=== PATIENT | male | born 1980 | race Caucasian/White ===

== ENCOUNTER 2017-10-16 10:55 | Emergency (ER) | payer SELFPAY ==
[~2017-10-16] VITALS: Ht 172.7 cm; Wt 88.0 kg
[~2017-10-16 10:55] MED LIST: ALBUAER19 INH; FLUT0.15 NAE
[2017-10-16 10:57] VITALS: TEMP 36.5
[2017-10-16] MEDS ORDERED: ONDANSETRON INJ 2 MG/ML 2 ML VIAL IV STA (11:16)
[2017-10-16] MEDS ORDERED: MECLIZINE HCL 25 MG TAB PO STA (11:16)
[2017-10-16] MEDS ORDERED: LORAZEPAM 2 MG/ML 1 ML VIAL IV STA (11:16)
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
[2017-10-16 11:45] VITALS: O2SAT 95
[2017-10-16 12:27] LABS: BASO % 0.2 %; BASO ABS # 0.02 K/uL (0-0.2); EOS % 0.5 %; EOS ABS # 0.05 K/uL (0-0.5); HEMATOCRIT 49.7 % (42-52); HEMOGLOBIN 17.2 g/dL (14.0-18.0); IG# 0.03 K/uL (0.00-0.02); LYMPH % 13.7 %; LYMPH ABS # 1.36 K/uL (1.2-3.4); MEAN CELL VOLUME 91.9 fL (80-100); MEAN CORPUSCULAR HEMOGLOBIN 31.8 pg (25-34); MEAN CORPUSCULAR HGB CONC 34.6 g/dl (32-36); MONO % 4.3 %; MONO ABS # 0.43 K/uL (0.11-0.59); NEUT ABS # 8.04 K/uL (1.4-6.5); PLATELET COUNT 267 K/uL (130-400); RED CELL DISTRIBUTION WIDTH CV 13.8 % (11.5-14.5); RED CELL DISTRIBUTION WIDTH SD 46.2 fL (36.4-46.3); WHITE BLOOD COUNT 9.93 K/uL (4.8-10.8)
[2017-10-16 12:49] LABS: ALBUMIN 3.3 gm/dl (3.4-5.0); ALT/SGPT 22 U/L (12-78); AST/SGOT 9 U/L (15-37); BLOOD UREA NITROGEN 11 mg/dl (7-18); CALCIUM 8.7 mg/dl (8.5-10.1); CARBON DIOXIDE 29 mmol/L (21-32); CREATININE 0.86 mg/dl (0.60-1.40); GLUCOSE 123 mg/dl (70-99); POTASSIUM 3.4 mmol/L (3.5-5.1); SODIUM 137 mmol/L (136-145)
--- NOTE | 2017-10-16 12:51 | DIAGNOSTIC IMAGING REPORT ---
HEAD WITHOUT CONTRAST (CT) CLINICAL HISTORY: 37 years-old Male with Pt c/o dizziness. Acute dizziness with altered mental status TECHNIQUE: Multiple axial CT images of the head were obtained without contrast. A dose lowering technique was utilized adhering to the principles of ALARA. CT DOSE: 614.27 mGy.cm COMPARISON: None. FINDINGS: No acute intracranial hemorrhage, midline shift, intracranial mass, hydrocephalus, territorial ischemia or abnormal extra-axial collection. There is increased attenuation of the cerebral vasculature and cerebral venous sinuses. There is fusiform dilation of the basilar artery measuring up to 10 mm transversely as noted on image 10 series 2. Atherosclerosis of the C4 segment left vertebral artery. Atherosclerosis is also seen within the left carotid terminus. The calvarium is intact. Moderate mucosal thickening of the ethmoid air cells. Mastoid air cells and middle ear cavities are clear. IMPRESSION: 1. No acute intracranial abnormality identified. 2. Increased attenuation of the cerebral vasculature and cerebral venous sinuses suggest recent contrast-enhanced study. 3. Fusiform dilation of the basilar artery measuring up to 10 mm transversely suggests aneurysmal dilation. This appears greater than expected for basilar artery dolichoectasia. The above report was generated using voice recognition software. It may contain grammatical, syntax or spelling errors. Electronically signed by: Jani Braden M.D. 10/16/2017 12:50 PM Dictated Date/Time: 10/16/2017 12:25 PM
[2017-10-16 13:00] LABS: ALKALINE PHOSPHATASE 69 U/L (45-117); TOTAL PROTEIN 7.2 gm/dl (6.4-8.2)
[2017-10-16] MEDS ORDERED: POTASSIUM CHLORIDE 20 MEQ/15 ML UDC PO STA (13:04)
[2017-10-16] MEDS ORDERED: MECL1TAB42 PO (13:11)
[2017-10-16] MEDS ORDERED: OPTIRAY 320 IV PRN (14:15)
--- NOTE | 2017-10-16 14:41 | DIAGNOSTIC IMAGING REPORT ---
CT NECK ANGIO WITH CONTRAST CLINICAL HISTORY: SEVERE DIZZINESS COMPARISON STUDY: Noncontrast head CT dated 10/16/2017 TECHNIQUE: CT angiography was performed from the aortic arch to the skull base. MIP imaging was performed. The patient was scanned in a dynamic helical fashion during intravenous administration of 120 cc of Optiray 320. A dose lowering technique was utilized adhering to the principles of ALARA. CT DOSE: 510.52 mGy.cm Technique: CT angiogram of the carotid and vertebral arteries was obtained using intravenous contrast and 3-D reconstruction. NASCET criteria was utilized. Findings: The right carotid revealed no evidence of aneurysm and no evidence of dissection. There is no evidence of hemodynamic significant stenosis. The left carotid revealed no evidence of hemodynamic significant stenosis. There is no evidence of aneurysm. There is no evidence of dissection. There is no evidence of hemodynamically significant vertebral stenosis. There is no evidence of vertebral dissection. The basilar artery is ectatic, and there is semilunar thrombus within the right half of the vessel narrowing the lumen by approximately 50%. Diagnostic considerations include a basilar dissection, or acute thrombus into a pre-existing plaque. IMPRESSION: 1. No evidence of carotid or vertebral artery stenosis 2. Extensive semilunar thrombus within an ectatic basilar artery. This narrows the lumen by approximately 50%. Diagnostic considerations include a basilar dissection, or acute thrombus into a pre-existing plaque. Electronically signed by: Gordo Hodges M.D. 10/16/2017 2:39 PM Dictated Date/Time: 10/16/2017 2:24 PM
[2017-10-16] MEDS ORDERED: SODIUM CHLORIDE 0.9% 1000ML 1,000 ML IV SCH (14:48)
--- NOTE | 2017-10-16 14:48 | DIAGNOSTIC IMAGING REPORT ---
CTA ANGIOGRAPHY OF THE HEAD CLINICAL HISTORY: Severe dizziness. Altered mental status. COMPARISON STUDY: Head CT performed earlier today. TECHNIQUE: Helical axial images of the head were obtained following uneventful intravenous administration of 120 cc of Optiray 320. A dose lowering technique was utilized adhering to the principles of ALARA. 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 The basilar artery measures 1.1 cm in transverse dimension. In addition, there is extensive eccentric intraluminal thrombus along the right aspect of the basilar artery which results in 50% narrowing of this vessel. An underlying dissection cannot be excluded but a definite intimal flap is not identified. There is moderate plaque within the left supraclinoid ICA. The anterior circulation is intact. An anterior communicating artery is noted. The bilateral posterior arteries are intact. Sensitivity for detection of acute hemorrhage is diminished on this exam but none is identified. Brain volume is normal. Ventricular system is normal. Apparent hypodensity within the right cerebellar hemisphere is noted. This may be artifactual. There is moderate mucosal thickening of the ethmoid and frontal sinuses. Mastoid air cells are clear. No definite abrupt vessel cut off is identified. IMPRESSION: 1. 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 Extensive eccentric intraluminal thrombus along the right aspect of the basilar artery which results in 50% narrowing of this vessel. This places the patient at risk for embolic stroke. Underlying dissection cannot be excluded. Findings discussed with Dr. Nails at time of dictation. 2. Hypodensity within the right cerebellar hemisphere. This is probably artifactual although acute infarct could have this appearance. An MRI of the brain without contrast could be obtained. Electronically signed by: Saurav Gaona M.D. 10/16/2017 2:47 PM Dictated Date/Time: 10/16/2017 2:26 PM
[2017-10-16 15:08] VITALS: Ht 172.7 cm; Wt 88.0 kg
[2017-10-16] MEDS ORDERED: SODIUM CHLORIDE 0.9% 1000ML 1,000 ML IV STA (15:28)
[2017-10-16 15:36] LABS: PTT PATIENT 25.4 SECONDS (21.0-31.0)
[2017-10-16 15:46] LABS: CKMB 0.9 ng/ml (0.5-3.6)
[2017-10-16 16:43] VITALS: BP 145/87; PULSE 69; O2SAT 95
== END 2017-10-16 16:44 | disposition short-term general hospital (02) ==
LOC: C.EDB 10:56 → C.EDC 16:44
DX: R41.82 Altered mental status, unspecified (principal); R42 Dizziness and giddiness; J45.909 Unspecified asthma, uncomplicated; F17.200 Nicotine dependence, unspecified, uncomplicated; Z87.81 Personal history of (healed) traumatic fracture; Z88.0 Allergy status to penicillin; Z88.5 Allergy status to narcotic agent

== ENCOUNTER 2022-08-25 14:10 | Inpatient (IN) ==
[2022-08-25 15:37] LABS: Partial Thromboplastin Ratio 1.1; Partial Thromboplastin Time 31.2 Seconds (21.0-31.0); Prothrombin Time 10.4 Seconds (9.0-12.0)
--- NOTE | 2022-08-25 15:37 | Emergency Department Note ---
Impression & Plan CVA (cerebral vascular accident), Basilar artery aneurysm, Tobacco use, Stroke- like symptoms ED Provider Note NAME: SUNSHINE CHERRY AGE: 42 SEX: M : 1980 ARRIVES VIA: Walk-In INFORMANT: Patient, ED PROVIDER(S): Rakesh Thompson MD Chief Complaint: Slurred speech, ambulatory dysfunction HPI: Patient presents due to concern for slurred speech and difficulty with ambulation beginning yesterday. This is noted similar to a prior stroke so he is brought in today. No reported falls. Patient has no fevers chills nausea vomiting or difficulty with swallowing. No bowel or bladder incontinence. Patient does smoke half pack of cigarettes daily. No alcohol use. No evidence of any weakness in the bilateral upper or lower extremities. No reported falls or trauma. Patient did have a brain MRI completed in 2019 which showed no evidence of ischemia. Remote right cerebellar infarct. 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 Patient is on aspirin and Plavix. The patient developed symptoms beginning yesterday. ROS: See HPI for pertinent positives and negatives. A total of 10 systems were reviewed and otherwise negative. Past medical history: See below Surgical history: See below Social history: See below Physical Exam: GENERAL: NAD, wearing a mask, non-toxic. EYE EXAM: Normal conjunctiva. PERRL, no anisocoria and EOM's grossly intact w/o pain. NECK: Supple, no nuchal rigidity, no adenopathy, non-tender. No signs of meningismus. FROM of the neck with good chin to chest and neck extension. No stridor. LUNGS: Clear to auscultation. Normal chest wall mechanics. HEART: NSR, no MRG. ABDOMEN: Abdomen soft, non-tender, normo-active bowel sounds, no masses, no rebound or guarding. BACK: No CVA TTP. SKIN: No rashes and no bruising. UPPER EXTREMITIES: Upper extremities are grossly normal. LOWER EXTREMITIES: Grossly normal, no edema. NEURO EXAM: A&O x3, cranial nerves II-XII grossly intact, dysarthria noted, moves all 4 extremities. Mild difficulty with [id number] bilaterally. Good [id number]. Differential diagnoses: Infection, dehydration, metabolic abnormality, hypo/hyperglycemia, electrolyte disturbance, anemia, hypoxia, cardiac sources, intracerebral event, toxicologic, neurologic, as well as other pathologies. Course: Patient was seen and evaluated the bedside. Full history physical exam was performed. EKG interpreted by me Normal sinus rhythm, rate 96 normal intervals left axis deviation no ST elevations. Imaging Studies: See Below Cardiac monitoring: An order was placed for continuous cardiac monitoring. The monitor shows a rate of 92 with sinus rhythm. MDM: Patient's initial CT of the head shows no acute intracranial abnormality. Chronic right cerebellar infarct. The patient does have dolichoectasia with fusiform aneurysmal dilatation the patient artery redemonstrated but increase in size since November 25, 2018. No evidence of rupture. Per the report patient does have a calcified basilar artery at the level of the dotty measuring 2.3 x 1.9 previously measured 1.5 x 1.5. The distal basilar artery just proximal to the bifurcation measures up to 9 mm transverse previously was 6 mm. I did speak to the transfer center to [facility] neurosurgery Dr. Sánchez. After discussing the patient's CTs he does not advocates any intervention at this time. He does was agree with an MRI to further evaluate for stroke. MRI brain was ordered. I did speak with on-call neurologist Dr. Snow who stated that patient does not require aspirin and Plavix below but may resume aspirin 81 Plavix 75 and to begin atorvastatin 40. I did speak with the on-call hospitalist and a ROSSI Cortez and the patient was admitted by Dr. Holland. Patient presents to the patient was noted to have subcentimeter acute to subac tim appearing infarct of the left cerebral peduncle. Past Med/Surg History Medical History Basilar artery aneurysm CAD (coronary artery disease) COPD (chronic obstructive pulmonary disease) CVA (cerebral vascular accident) Dyslipidemia HTN (hypertension) Tobacco use Surgical History History of arthroscopy of shoulder History of umbilical hernia repair Family History Father Coronary heart disease [place] age 50's Hypertension Grandfather (Paternal) Coronary heart disease Social History Smoking Status: Former smoker Cigarettes Per Day: 2-3ppd x 30 years; Hx Alcohol Use: No Hx Substance Use: No Preferred Language: Yi Communication Ability: Effective Crocheter Required: No Beliefs That Will Affect Care: None marital status: Single Current Living Situation: Other Current Living Situation Comment: pt lives with someone, not [facility] business current occupational status: employed Feels Safe at Home: Yes Safety Concerns: Feels Safe At This Time Allergies Allergies Allergy/AdvReac Type Severity Reaction Status Date / Time Penicillins Allergy Mild UNKNOWN Verified 08/25/22 16:45 oxycodone AdvReac Mild GI DISTRESS Verified 08/25/22 16:45 Home Meds Home Medications Medication Instructions Recorded Confirmed acetaminophen 500 mg tablet 500 - 1,000 mg PO BID PRN Pain 11/25/18 08/25/22 (Tylenol Extra Strength) aspirin 81 mg tablet,delayed 81 mg PO DAILY 11/25/18 08/25/22 release (Connie Low Dose Aspirin) amlodipine 10 mg tablet 10 mg PO DAILY 08/25/22 08/25/22 furosemide 20 mg tablet 20 mg PO DAILY PRN Edema 08/25/22 08/25/22 metoprolol tartrate 100 mg tablet 100 mg PO BID 08/25/22 08/25/22 Results & Data (ED) Vital Signs Vital Signs - 24 hr 08/25/22 14:30 08/25/22 15:34 08/25/22 16:17 Temperature 37.1 C Temperature Source Temporal Artery Scan Pulse Rate 97 H Pulse Rate [Apical] 89 92 H Pulse Rhythm [Apical] Regular Pulse Strength [Apical] Normal Respiratory Rate 16 18 20 Respiratory Effort / Characteristics Non-Labored Spontaneous Non-Labored Spontaneous Respiratory Depth Normal Normal Respiratory Pattern Regular Blood Pressure 158/102 H Blood Pressure [Left Arm] 150/93 H Blood Pressure [Right Arm] 152/99 H Blood Pressure Mean 120 Blood Pressure Mean [Left Arm] 112 Blood Pressure Mean [Right Arm] 116 Blood Pressure Position [Left Arm] Semi-fowlers Blood Pressure Position [Right Arm] Semi-fowlers Pulse Oximetry 93 92 93 Oxygen Delivery Method Room Air Room Air Room Air Sepsis Recent Fever Within 48 Hours No Sepsis New/Unexplained Change in Mental Status N/A Sepsis Action Taken by Nursing No Action Required Home Medications Current Medication List: was personally reviewed by me Laboratory Data Attestation: I reviewed the patient's lab results. Result diagrams: 08/25/22 14:35 08/25/22 15:51 Lab Results 08/25/22 08/25/22 08/25/22 Range/Units 14:35 14:35 15:49 WBC 10.93 H (4.8-10.8) K/ul RBC 5.77 (4.63-6.08) M/uL Hgb 18.5 H (14.0-18.0) g/dl POC Hgb (14.0-18.0) g/dl Hct 53.1 H (40.1-51.0) % POC Hct (42-52) % MCV 92.0 (80.0-100.0) fL MCH 32.1 (25.0-34.0) pg MCHC 34.8 (32.0-36.0) g/dL RDW Std Deviation 48.3 H (36.4-46.3) fL RDW Coeff of Krupa 14.4 (11.5-14.5) % Plt Count 312 (130-400) K/uL MPV 9.6 (9.4-12.4) fL PT 10.4 (9.0-12.0) Seconds INR 1.0 (0.9-1.1) APTT 31.2 H (21.0-31.0) Seconds PTT Ratio 1.1 POC Sodium (135-144) mmol/L Sodium (136-145) mmol/L POC Potassium (3.3-5.0) mmol/L Potassium (3.5-5.1) mmol/L POC Chloride (101-112) mmol/L Chloride (98-107) mmol/L Carbon Dioxide (21-32) mmol/L POC Total CO2 (24-31) mmol/L Anion Gap (3-11) POC Anion Gap (16-25) mmol/L POC BUN (7-18) mg/dl BUN (6-23) mg/dl Creatinine (0.6-1.4) mg/dl POC Creatinine (0.6-1.3) mg/dl Est Cr Clr Drug Dosing ml/min Est GFR ( Amer) ml/min Est GFR (Non-Af Amer) ml/min BUN/Creatinine Ratio (10-20) Glucose (70-99(Fasting)) mg/dl POC Glucose (other) (70-99) mg/dl Calcium (8.5-10.1) mg/dl POC Ioniz Calcium Samm (1.12-1.32) mmol/l Magnesium (1.7-2.4) mg/dl Total Bilirubin (0.2-1.0) mg/dl AST (13-39) U/L ALT (7-52) U/L Alkaline Phosphatase (34-104) U/L Troponin I High Sens (0-20) pg/ml Total Protein (6.0-8.3) gm/dl Albumin (3.4-5.0) gm/dl Globulin (2.5-4.0) gm/dl Albumin/Globulin Ratio (0.9-2) Triglycerides (0-150) mg/dl Cholesterol (0-200) mg/dl LDL Cholesterol, Calc VLDL Cholesterol, Calc HDL Cholesterol mg/dl Cholesterol/HDL Ratio (0-5) SARS-CoV-2, RNA, NAAT NEGATIVE (NEGATIVE) 08/25/22 08/25/22 Range/Units 15:51 15:57 WBC (4.8-10.8) K/ul RBC (4.63-6.08) M/uL Hgb (14.0-18.0) g/dl POC Hgb 19.7 H (14.0-18.0) g/dl Hct (40.1-51.0) % POC Hct 58 H (42-52) % MCV (80.0-100.0) fL MCH (25.0-34.0) pg MCHC (32.0-36.0) g/dL RDW Std Deviation (36.4-46.3) fL RDW Coeff of Krupa (11.5-14.5) % Plt Count (130-400) K/uL MPV (9.4-12.4) fL PT (9.0-12.0) Seconds INR (0.9-1.1) APTT (21.0-31.0) Seconds PTT Ratio POC Sodium 138 (135-144) mmol/L Sodium 136 (136-145) mmol/L POC Potassium 4.0 (3.3-5.0) mmol/L Potassium 4.0 (3.5-5.1) mmol/L POC Chloride 98 L (101-112) mmol/L Chloride 99 (98-107) mmol/L Carbon Dioxide 29 (21-32) mmol/L POC Total CO2 28 (24-31) mmol/L Anion Gap 8 (3-11) POC Anion Gap 16.0 (16-25) mmol/L POC BUN 13 (7-18) mg/dl BUN 12 (6-23) mg/dl Creatinine 0.84 (0.6-1.4) mg/dl POC Creatinine 0.8 (0.6-1.3) mg/dl Est Cr Clr Drug Dosing 138.3 ml/min Est GFR ( Amer) 123.4 ml/min Est GFR (Non-Af Amer) 106.5 ml/min BUN/Creatinine Ratio 14.3 (10-20) Glucose 103 H (70-99(Fasting)) mg/dl POC Glucose (other) 109 H (70-99) mg/dl Calcium 9.6 (8.5-10.1) mg/dl POC Ioniz Calcium Samm 1.17 (1.12-1.32) mmol/l Magnesium 1.9 (1.7-2.4) mg/dl Total Bilirubin 0.4 (0.2-1.0) mg/dl AST 18 (13-39) U/L ALT 29 (7-52) U/L Alkaline Phosphatase 67 (34-104) U/L Troponin I High Sens 6.6 (0-20) pg/ml Total Protein 7.9 (6.0-8.3) gm/dl Albumin 4.1 (3.4-5.0) gm/dl Globulin 3.8 (2.5-4.0) gm/dl Albumin/Globulin Ratio 1.1 (0.9-2) Triglycerides 439 H (0-150) mg/dl Cholesterol 251 H (0-200) mg/dl LDL Cholesterol, Calc TNP VLDL Cholesterol, Calc TNP HDL Cholesterol 38 mg/dl Cholesterol/HDL Ratio 6.6 H (0-5) SARS-CoV-2, RNA, NAAT (NEGATIVE) Administered Medications Metoprolol Tartrate (Metoprolol Tartrate 100 Mg Tab) 100 mg PO BID KHUSHBU Stop: 09/24/22 20:59 Last Admin: 08/25/22 21:01 Dose: 100 mg Documented By: CR Discontinued Medications Aspirin (Aspirin Chew 324 Mg) 81 mg PO NOW STA Stop: 08/25/22 17:17 Last Admin: 08/25/22 17:27 Dose: 81 mg Documented By: SLB Clopidogrel Bisulfate (Clopidogrel Bisulfate 75 Mg Tab) 75 mg PO NOW ONE Stop: 08/25/22 17:17 Last Admin: 08/25/22 17:25 Dose: 75 mg Documented By: FELICIA Ioversol (Optiray 320 500ml) 121 ml IV ONCE ONE Stop: 08/25/22 16:09 Last Admin: 08/25/22 16:09 Dose: 121 ml Documented By: CINTHIA Imaging Data Radiologist's Impression: Chest X-Ray 08/25/22 14:35 XR chest 1V portable CLINICAL HISTORY: stroke alert TECHNIQUE: Single frontal radiograph of the chest was obtained. Comparison: Comparison is made to chest radiograph 11/25/2018 FINDINGS: No lines and tubes are seen. Cardiomegaly is noted. Prominence and cephalization of the vasculature is seen. No evidence of pleural effusion or pneumothorax. IMPRESSION: Cardiomegaly and mild pulmonary edema. ACT 112: Negative or not required by law. Electronically signed by: Ad Delgado M.D. 08/25/2022 3:[address] 08/25/22 14:35 CT head/brain wo con CLINICAL HISTORY: 42 years-old Male with Stroke Alert. Acute dizziness with strokelike symptoms TECHNIQUE: Multiple axial CT images of the head were obtained without contrast. A dose lowering technique was utilized adhering to the principles of ALARA. CT DOSE: 1311.06 mGy.cm COMPARISON: MRA of the head 11/25/2018, brain MRI 11/25/2018. FINDINGS: No acute intracranial hemorrhage, midline shift, intracranial mass, hydrocephalus, territorial ischemia or abnormal extra-axial collection. Dolichoectasia with aneurysmal dilation of the basilar artery is redemonstrated. The peripherally calcified basilar artery at the level of the dotty measures 2.3 x 1.9 cm, previously 1.5 x 1.5 cm when measured in a similar fashion. This causes moderate mass effect upon the ventral aspect of the pontine brainstem. The distal basilar artery just proximal to the bifurcation measures up to 9 mm transversely, previously 6 mm. No evidence of aneurysm rupture. Chronic intramural thrombus versus atheromatous plaque is again noted within the basilar artery. Additional cerebral vascular calcifications of the carotid and middle cerebral arteries. Chronic right cerebellar infarct. The calvarium is intact. The paranasal sinuses, mastoid air cells, and middle ear cavities are clear. IMPRESSION: 1. No acute intracranial abnormality. 2. Chronic right cerebellar infarct. 3. 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 There is no evidence of aneurysm rupture on today's study. ACT 112: Negative or not required by law. The above report was generated using voice recognition software. It may contain grammatical, syntax or spelling errors. Electronically signed by: Arthur Braden M.D. 08/25/2022 3:39 PM Head CTA 08/25/22 15:36 CT angio neck with con, CT angio head w con CLINICAL HISTORY: 42 years-old Male with slurred speech, h/o R cereb CVA and bas aneurysm. Acute strokelike symptoms COMPARISON STUDY: Head CT of same day, brain MRI and MRA brain 11/25/2018, CTA neck 10/16/2017 TECHNIQUE: Following the IV administration of 121 of Optiray, CT angiogram of the head and neck was performed from the aortic arch to the skull apex. Images are reviewed in the axial, sagittal, and coronal planes. 3-D MIPS images are created and assessed. IV contrast was administered without complication. All measurements were calculated based on NASCET criteria. A dose lowering te chnique was utilized adhering to the principles of ALARA. CT DOSE: 644.48 mGy.cm FINDINGS: Four-vessel morphology of the thoracic aortic arch. Patency of the innominate and imaged subclavian arteries. The common and internal carotid arteries are widely patent. There is mild atherosclerotic plaque of the left carotid bulb and proximal left ICA resulting in less than 50% stenosis. Fusiform dilation of the left carotid terminus measures up to 7 mm, previously measured at 6 mm. The anterior and middle cerebral arteries are widely patent. Mild atherosclerotic plaque without central stenosis of the bilateral vertebral arteries. Dolich oectasia with aneurysmal dilation of the basilar artery is redemonstrated. The peripherally calcified basilar artery at the level of the dotty measures 2.2 x 1.9 cm, previously 1.5 x 1.5 cm when measured in a similar fashion. This causes moderate mass effect upon the ventral aspect of the pontine brainstem. The distal basilar artery just proximal to the bifurcation measures up to 9 mm transversely, previously 6 mm. No evidence of aneurysm rupture. Chronic intramural thrombus/atheromatous plaque is again noted within the basilar artery. Chronic right cerebellar infarct. No abnormal intracranial enhancement. Lung apices are clear. No pneumothorax. Nonspecific cervical chain lymphadenopathy measures up to 1.5 cm on the left. No acute fracture. Degenerative changes of the cervical spine with mild kyphotic curvature. IMPRESSION: 1. 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 There is no evidence of aneurysm rupture on today's study. 2. Mild atherosclerosis without dissection, high-grade stenosis or arterial occlusion identified. 3. Mild nonspecific cervical chain lymphadenopathy. ACT 112: Negative or not required by law. The above report was generated using voice recognition software. It may contain grammatical, syntax or spelling errors. Electronically signed by: Arthur Braden M.D. 08/25/2022 4:31 PM Neck CTA 08/25/22 15:36 CT angio neck with con, CT angio head w con CLINICAL HISTORY: 42 years-old Male with slurred speech, h/o R cereb CVA and bas aneurysm. Acute strokelike symptoms COMPARISON STUDY: Head CT of same day, brain MRI and MRA brain 11/25/2018, CTA neck 10/16/2017 TECHNIQUE: Following the IV administration of 121 of Optiray, CT angiogram of the head and neck was performed from the aortic arch to the skull apex. Images are reviewed in the axial, sagittal, and coronal planes. 3-D MIPS images are created and assessed. IV contrast was administered without complication. All measurements were calculated based on NASCET criteria. A dose lowering technique was utilized adhering to the principles of ALARA. CT DOSE: 644.48 mGy.cm FINDINGS: Four-vessel morphology of the thoracic aortic arch. Patency of the innominate and imaged subclavian arteries. The common and internal carotid arteries are widely patent. There is mild atherosclerotic plaque of the left carotid bulb and proximal left ICA resulting in less than 50% stenosis. Fusiform dilation of the left carotid terminus measures up to 7 mm, previously measured at 6 mm. The anterior and middle cerebral arteries are widely patent. Mild atherosclerotic plaque without central stenosis of the bilateral vertebral arteries. Dolichoectasia with aneurysmal dilation of the basilar artery is redemonstrated. The peripherally calcified basilar artery at the level of the dotty measures 2.2 x 1.9 cm, previously 1.5 x 1.5 cm when measured in a similar fashion. This causes moderate mass effect upon the ventral aspect of the pontine brainstem. The distal basilar artery just proximal to the bifurcation measures up to 9 mm transversely, previously 6 mm. No evidence of aneurysm rupture. Chronic intramural thrombus/atheromatous plaque is again noted within the basilar artery. Chronic right cerebellar infarct. No abnormal intracranial enhancement. Lung apices are clear. No pneumothorax. Nonspecific cervical chain lymphadenopathy measures up to 1.5 cm on the left. No acute fracture. Deg enerative changes of the cervical spine with mild kyphotic curvature. IMPRESSION: 1. Dolichoectasia with fusiform aneurysmal dilation of the basilar artery has in creased in size from 11/25/2018. There is no evidence of aneurysm rupture on today's study. 2. Mild atherosclerosis without dissection, high-grade stenosis or arterial occlusion identified. 3. Mild nonspecific cervical chain lymphadenopathy. ACT 112: Negative or not required by law. The above report was generated using voice recognition software. It may contain grammatical, syntax or spelling errors. Electronically signed by: Arthur Braden M.D. 08/25/2022 4:31 PM Brain MRI 08/25/22 17:07 MR brain wo con HISTORY: 42 years-old Male stroke symptoms acute strokelike symptoms COMPARISON: CTA had and neck of same day, brain MRI 11/25/2018 TECHNIQUE: Multiplanar multisequence MRI the brain was obtained without the use of IV contrast FINDINGS: Chronic right cerebellar infarct. Dolichoectasia with aneurysmal dilation of the basilar artery redemonstrated with associated chronic intramural thrombus/atheromatous plaque. There is increased mass effect upon the cerebral peduncles and dotty compared to the 2019 exam. The midline structures appear unremarkable otherwise. Study is mildly motion degraded. No evidence of acute or subacute territorial infarct. There is an 8 mm area of restricted diffusion with decreased signal on the ADC map involving the left cerebral peduncle, image 9 of the axial series. No acute intracranial hemorrhage, midline shift, abnormal extra-axial collection, hydrocephalus or intracranial mass. Cerebral venous sinuses and major arterial flow voids are otherwise unremarkable. Skull, orbits and soft tissues are unremarkable. Mastoid air cells and paranasal sinuses are clear. IMPRESSION: 1. Subcentimeter acute to subacute appearing infarct of the left cerebral peduncle. 2. Dolichoectasia with fusiform aneurysmal dilation of the basilar artery redemonstrated, better characterized on the CTA head and neck study of same day. 3. Chronic right cerebellar infarct. ACT 112: Negative or not required by law. The above report was generated using voice recognition software. It may contain grammatical, syntax or spelling errors. Electronically signed by: Arthur Braden M.D. 08/25/2022 6:04 PM Discharge Plan Visit Data Chief Complaint: Leg Weakness, Bilateral Stated Complaint: SLURRED SPEECH, UNSTABLE ON HIS FEET ED Provider: Rakesh Thompson ED Midlevel Provider: Mariia Laureano Discharge Problem: CVA (cerebral vascular accident), Basilar artery aneurysm, Tobacco use, Stroke-like symptoms Patient Disposition: Admitted As Inpatient Discharge Instructions Interventions: ED Discharge Assessment Last Done: 08/25/22 19:51
--- NOTE | 2022-08-25 15:39 | Electrocardiogram Report ---
Test Reason : Blood Pressure : / mmHG Vent. Rate : 096 BPM Atrial Rate : 096 BPM P-R Int : 138 ms QRS Dur : 094 ms QT Int : 348 ms P-R-T Axes : 012 -84 050 degrees QTc Int : 439 ms Normal sinus rhythm Left anterior fascicular block Low voltage QRS Poor R wave progression, consider anterior DE vs. lead placement vs. LVH Abnormal ECG When compared with ECG of 25-NOV-2018 16:46, Left anterior fascicular block now present PRWP now present Confirmed by Vinay Wang ([id number]) on 08/25/2022 3:39:03 PM Referred By: Confirmed By:Vinay Wang
--- NOTE | 2022-08-25 15:40 | CT Scan Report ---
CT head/brain wo con CLINICAL HISTORY: 42 years-old Male with Stroke Alert. Acute dizziness with strokelike symptoms TECHNIQUE: Multiple axial CT images of the head were obtained without contrast. A dose lowering tech nique was utilized adhering to the principles of ALARA. CT DOSE: 1311.06 mGy.cm COMPARISON: MRA of the head 11/25/2018, brain MRI 11/25/2018. FINDINGS: No acute intracranial hemorrhage, midline shift, intracranial mass, hydrocephalus, territorial ischem ia or abnormal extra-axial collection. Dolichoectasia with aneurysmal dilation of the basilar artery is redemonstrated. The peripherally calcified basilar artery at the level of the dotty measures 2.3 x 1.9 cm, previously 1.5 x 1.5 cm when measured in a similar fashion. This causes moderate mass effect upon the ventral aspect of the pontine brainstem. The distal basilar artery just proximal to the bifu rcation measures up to 9 mm transversely, previously 6 mm. No evidence of aneurysm rupture. Chronic i ntramural thrombus versus atheromatous plaque is again noted within the basilar artery. Additional ce rebral vascular calcifications of the carotid and middle cerebral arteries. Chronic right cerebellar infarct. The calvarium is intact. The paranasal sinuses, mastoid air cells, and middle ear cavities are tommy r. IMPRESSION: 1. No acute intracranial abnormality. 2. Chronic right cerebellar infarct. 3. Dolichoectasia with fusiform aneurysmal dilation of the basilar artery is redemonstrated and has i ncreased in size from 11/25/2018. There is no evidence of aneurysm rupture on today's study. ACT 112: Negative or not required by law. The above report was generated using voice recognition software. It may contain grammatical, syntax o r spelling errors. Electronically signed by: Arthur Braden M.D. 08/25/2022 3:39 PM
--- NOTE | 2022-08-25 15:48 | XRay Report ---
XR chest 1V portable CLINICAL HISTORY: stroke alert TECHNIQUE: Single frontal radiograph of the chest was obtained. Comparison: Comparison is made to chest radiograph 11/25/2018 FINDINGS: No lines and tubes are seen. Cardiomegaly is noted. Prominence and cephalization of the vasculature i s seen. No evidence of pleural effusion or pneumothorax. IMPRESSION: Cardiomegaly and mild pulmonary edema. ACT 112: Negative or not required by law. Electronically signed by: Ad Delgado M.D. 08/25/2022 3:46 PM
[2022-08-25 15:51] LABS: Hematocrit (blood only) 53.1 % (40.1-51.0); Hemoglobin 18.5 g/dl (14.0-18.0); Mean Corpuscular Hemoglobin 32.1 pg (25.0-34.0); Mean Corpuscular Hgb Conc 34.8 g/dL (32.0-36.0); Mean Platelet Volume 9.6 fL (9.4-12.4); Platelet Count 312 K/uL (130-400); RDW Coefficient of Variation 14.4 % (11.5-14.5); RDW Standard Deviation 48.3 fL (36.4-46.3); Red Blood Count 5.77 M/uL (4.63-6.08); White Blood Count 10.93 K/ul (4.8-10.8)
[2022-08-25] MEDS ORDERED: OPTIRAY 320 500ml IV ONE (16:08)
[2022-08-25 16:10] LABS: iSTAT Creatinine 0.8 mg/dl (0.6-1.3); iSTAT Hemoglobin 19.7 g/dl (14.0-18.0); iSTAT Ionized Calcium 1.17 mmol/l (1.12-1.32)
[2022-08-25 16:32] LABS: Alanine Aminotransferase 29 U/L (7-52); Albumin Level 4.1 gm/dl (3.4-5.0); Alkaline Phosphatase 67 U/L (34-104); Anion Gap 8 (3-11); Aspartate Aminotransferase 18 U/L (13-39); BUN Creatinine Ratio 14.3 (10-20); Bilirubin,Total 0.4 mg/dl (0.2-1.0); Blood Urea Nitrogen 12 mg/dl (6-23); Calcium 9.6 mg/dl (8.5-10.1); Carbon Dioxide 29 mmol/L (21-32); Chloride 99 mmol/L (98-107); Cholesterol 251 mg/dl (0-200); Creatinine Clr Calc Pharmacy 138.3 ml/min; Est GFR (African American) 123.4 ml/min; Est GFR (Non-African American) 106.5 ml/min; Glucose 103 mg/dl (70-99(Fasting)); HDL Cholesterol 38 mg/dl; Magnesium 1.9 mg/dl (1.7-2.4); Sodium 136 mmol/L (136-145); Total Protein 7.9 gm/dl (6.0-8.3); Triglycerides 439 mg/dl (0-150)
--- NOTE | 2022-08-25 16:33 | CT Scan Report ---
CT angio neck with con, CT angio head w con CLINICAL HISTORY: 42 years-old Male with slurred speech, h/o R cereb CVA and bas aneurysm. Acute s trokelike symptoms COMPARISON STUDY: Head CT of same day, brain MRI and MRA brain 11/25/2018, CTA neck 10/16/2017 TECHNIQUE: Following the IV administration of 121 of Optiray, CT angiogram of the head and neck was p erformed from the aortic arch to the skull apex. Images are reviewed in the axial, sagittal, and daryl nal planes. 3-D MIPS images are created and assessed. IV contrast was administered without complicati on. All measurements were calculated based on NASCET criteria. A dose lowering technique was utilize d adhering to the principles of ALARA. CT DOSE: 644.48 mGy.cm FINDINGS: Four-vessel morphology of the thoracic aortic arch. Patency of the innominate and imaged subclavian a rteries. The common and internal carotid arteries are widely patent. There is mild atherosclerotic pl aque of the left carotid bulb and proximal left ICA resulting in less than 50% stenosis. Fusiform dil ation of the left carotid terminus measures up to 7 mm, previously measured at 6 mm. The anterior and middle cerebral arteries are widely patent. Mild atherosclerotic plaque without central stenosis of the bilateral vertebral arteries. Dolichoectasia with aneurysmal dilation of the basilar artery is re demonstrated. The peripherally calcified basilar artery at the level of the dotty measures 2.2 x 1.9 c m, previously 1.5 x 1.5 cm when measured in a similar fashion. This causes moderate mass effect upon the ventral aspect of the pontine brainstem. The distal basilar artery just proximal to the bifurcati on measures up to 9 mm transversely, previously 6 mm. No evidence of aneurysm rupture. Chronic intram ural thrombus/atheromatous plaque is again noted within the basilar artery. Chronic right cerebellar infarct. No abnormal intracranial enhancement. Lung apices are clear. No pneumothorax. Nonspecific cervical chain lymphadenopathy measures up to 1.5 cm on the left. No acute fracture. Degenerative changes of the cervical spine with mild kyphotic cur vature. IMPRESSION: 1. 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 There is no evidence of aneurysm rupture on today's study. 2. Mild atherosclerosis without dissection, high-grade stenosis or arterial occlusion identified. 3. Mild nonspecific cervical chain lymphadenopathy. ACT 112: Negative or not required by law. The above report was generated using voice recognition software. It may contain grammatical, syntax o r spelling errors. Electronically signed by: Arthur Braden M.D. 08/25/2022 4:31 PM
[2022-08-25 16:35] LABS: Albumin Globulin Ratio 1.1 (0.9-2); Chol HDL Ratio 6.6 (0-5); Globulin 3.8 gm/dl (2.5-4.0)
[2022-08-25] MEDS ORDERED: ASPIRIN CHEW 324 MG PO STA (17:16)
[2022-08-25] MEDS ORDERED: CLOPIDOGREL BISULFATE 75 MG TAB PO ONE (17:16)
--- NOTE | 2022-08-25 17:30 | History & Physical Report ---
Date of Service August 25, 2022 Assessment & Plan (1) CVA (cerebral vascular accident): (2) Basilar artery aneurysm: Plan: Patient is a 42-year-old male with PMH HTN, COPD, tobacco use, CAD, CVA, dolichoectasia of basilar artery aneurysm presented to ER with complaint of slurred speech that started yesterday afternoon. Med non-compliance In ER afebrile, initial BP: 158/102 CT Head: 1. No acute intracranial abnormality. 2. Chronic right cerebellar infarct. 3. 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 There is no evidence of aneurysm rupture on today's study. CTA Head and Neck: 1. 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 There is no evidence of aneurysm rupture on today's study. 2. Mild atherosclerosis without dissection, high-grade stenosis or arterial occlusion identified. 3. Mild nonspecific cervical chain lymphadenopathy. ER physician spoke to Dr Sánchez [facility] neurosurgery who stated no surgical procedure. Also spoke to welder production line arc neurologist - Dr Loving who recommended MRI brain and aspirin 81 and plavix 75mg daily Tele to monitor for arrhythmias MRI brain pending EKG in am Lipid and A1c in am Echo with bubble study Aspiration precautions PT/OT consult Start atorvastatin 40mg daily Patient is to be on aspirin and Plavix however noncompliant. Restart aspirin, Plavix Neurology consult (3) HTN (hypertension): Plan: Noncompliant home medications. Was to be on amlodipine 10mg daily, metoprolol tartrate 100mg BID. Lasix 20mg daily prn LE edema Restart metoprolol tartrate Monitor BP and consider restarting amlodipine if needed (4) Dyslipidemia: Plan: Lipid panel in am Starting atorvastatin 40mg as above (5) CAD (coronary artery disease): Plan: Denies CP, SOB. EKG sinus rhythm, LAFB, poor R wave progression Troponin pending Repeat EKG in am (6) COPD (chronic obstructive pulmonary disease): Plan: Not on inhalers No signs of exacerbation currently Monitor (7) Tobacco use: Plan: 2-3ppd x 30 years Smoking cessation encouraged. Patient states he has no intent of quitting at this time Denies nicotine patch DVT Prophylaxis SCDs Patient's sister Jaja Carlton would look like update. Cell phone number: [phone] DNR/DNI as per discussion with pt and pt's sister Follows with Esteban Underwood PA-C for routine care Pt was seen and care coordinated with Dr Holland. See addendum History of Present Illness Chief Complaint: Speech changes Primary Care Provider: Esteban Tucker Patient is a 42-year-old male with PMH HTN, COPD, tobacco use, CAD, CVA, dolichoectasia of basilar artery aneurysm presented to ER with complaint of slurred speech that started yesterday afternoon. History obtained from patient, patient's family and chart review. He states he took a nap and woke up with slurred speech. Sister also reports that he ambulated to bathroom that he almost fell yesterday. Sister and patient reports slurred speech is about the same as yesterday. Patient admits that he does not take his medications regularly. Last took medications about 2 weeks ago. Sister states he hasn't taken his medications as prescribed for years. Pharmacy review shows that patient last had Plavix filled in 11/2021, metoprolol tartrate in 01/2022 and amlodipine in 03/2022. Denies extremities weakness or paresthesias. Has chronic intermittent YANEZ's. Reports chronic cough. Reports nocturia for "awhile". Smokes 2-3ppd x 30 years. He hasn't smoked since yesterday. Patient has been seen by neurosurgery at [facility] as well as [facility] with previous conversations of no possible surgical intervention. Denies fever/chills, diaphoresis, N/V/D/C, dizziness, syncope, vision changes, neck pain, CP, SOB, orthopnea, palpitations, sore throat, choking, otalgia, rhinorrhea, abdominal pain, extremity edema, rashes, dysuria. Allergies Allergy/AdvReac Type Severity Reaction Status Date / Time Penicillins Allergy Mild UNKNOWN Verified 08/25/22 16:45 oxycodone AdvReac Mild GI DISTRESS Verified 08/25/22 16:45 Home Medications Medication Instructions Recorded Confirmed Type acetaminophen 500 mg tablet 500 - 1,000 mg PO BID PRN Pain 11/25/18 08/25/22 History (Tylenol Extra Strength) aspirin 81 mg tablet,delayed 81 mg PO DAILY 11/25/18 08/25/22 History release (Connie Low Dose Aspirin) amlodipine 10 mg tablet 10 mg PO DAILY 08/25/22 08/25/22 History furosemide 20 mg tablet 20 mg PO DAILY PRN Edema 08/25/22 08/25/22 History metoprolol tartrate 100 mg tablet 100 mg PO BID 08/25/22 08/25/22 History Past Med/Surg History Medical History Basilar artery aneurysm CAD (coronary artery disease) COPD (chronic obstructive pulmonary disease) CVA (cerebral vascular accident) Dyslipidemia HTN (hypertension) Tobacco use Surgical History History of arthroscopy of shoulder History of umbilical hernia repair Family History Father Coronary heart disease [place] age 50's Hypertension Grandfather (Paternal) Coronary heart disease Social History Smoking Status: Former smoker Cigarettes Per Day: 2-3ppd x 30 years; Hx Alcohol Use: No Hx Substance Use: No Preferred Language: Kinyarwanda Communication Ability: Effective Urban Renewal Manager Required: No Beliefs That Will Affect Care: None marital status: Single Current Living Situation: Other Current Living Situation Comment: pt lives with someone, not [facility] business current occupational status: employed Feels Safe at Home: Yes Safety Concerns: Feels Safe At This Time Review of Systems Review of Systems: All systems reviewed & are unremarkable except as noted in HPI & below Physical Exam Physical Exam: General: no distress, +obese Head: normocephalic, atraumatic Eyes: PERRL, EOM's intact, conjunctiva non-injected, anicteric ENT: normal inspection external ears, nose, mucous membranes moist Neck: supple, trachea midline Lungs: clear, no respiratory distress, no wheezing/rhonchi/rales CV: RRR, no murmur, trace pretibial edema Abd: normal BS, soft, non-tender Ext: no cyanosis, no calf tenderness Neuro: A&O x 3, face is strong and symmetric ,hearing grossly intact, soft palate elevates symmetrically, +slurred speech, shoulder shrug intact, tongue is midline, normal movement, no fasciculations Skin: warm, dry Results & Data Results & Data ([facility]) Vital Signs (Past 12 Hours) Vital Signs Temp Pulse Pulse Resp BP BP BP 08/25/22 16:17 92 H 20 152/99 H 08/25/22 15:34 89 18 150/93 H 08/25/22 14:30 37.1 C 97 H 16 158/102 H Pulse Ox O2 Del Method 08/25/22 16:17 93 Room Air 08/25/22 15:34 92 Room Air 08/25/22 14:30 93 Room Air Laboratory Results Short CBC 08/25/22 Range/Units 14:35 WBC 10.93 H (4.8-10.8) K/ul Hgb 18.5 H (14.0-18.0) g/dl Hct 53.1 H (40.1-51.0) % Plt Count 312 (130-400) K/uL BMP 08/25/22 15:51 Sodium 136 Potassium 4.0 Chloride 99 Carbon Dioxide 29 BUN 12 Creatinine 0.84 Glucose 103 H Calcium 9.6 Liver Function 08/25/22 Range/Units 15:51 Total Bilirubin 0.4 (0.2-1.0) mg/dl AST 18 (13-39) U/L ALT 29 (7-52) U/L Alkaline Phosphatase 67 (34-104) U/L Albumin 4.1 (3.4-5.0) gm/dl Diagnostic Findings Chest X-Ray 08/25/22 14:35 XR chest 1V portable CLINICAL HISTORY: stroke alert TECHNIQUE: Single frontal radiograph of the chest was obtained. Comparison: Comparison is made to chest radiograph 11/25/2018 FINDINGS: No lines and tubes are seen. Cardiomegaly is noted. Prominence and cephalization of the vasculature is seen. No evidence of pleural effusion or pneumothorax. IMPRESSION: Cardiomegaly and mild pulmonary edema. ACT 112: Negative or not required by law. Electronically signed by: Ad Delgado M.D. 08/25/2022 3:[address] 08/25/22 14:35 CT head/brain wo con CLINICAL HISTORY: 42 years-old Male with Stroke Alert. Acute dizziness with strokelike symptoms TECHNIQUE: Multiple axial CT images of the head were obtained without contrast. A dose lowering technique was utilized adhering to the principles of ALARA. CT DOSE: 1311.06 mGy.cm COMPARISON: MRA of the head 11/25/2018, brain MRI 11/25/2018. FINDINGS: No acute intracranial hemorrhage, midline shift, intracranial mass, hydrocephalus, territorial ischemia or abnormal extra-axial collection. Dolichoectasia with aneurysmal dilation of the basilar artery is redemonstrated. The peripherally calcified basilar artery at the level of the dotty measures 2.3 x 1.9 cm, previously 1.5 x 1.5 cm when measured in a similar fashion. This causes moderate mass effect upon the ventral aspect of the pontine brainstem. The distal basilar artery just proximal to the bifurcation measures up to 9 mm transversely, previously 6 mm. No evidence of aneurysm rupture. Chronic intramural thrombus versus atheromatous plaque is again noted within the basilar artery. Additional cerebral vascular calcifications of the carotid and middle cerebral arteries. Chronic right cerebellar infarct. The calvarium is intact. The paranasal sinuses, mastoid air cells, and middle ear cavities are clear. IMPRESSION: 1. No acute intracranial abnormality. 2. Chronic right cerebellar infarct. 3. 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 There is no evidence of aneurysm rupture on today's study. ACT 112: Negative or not required by law. The above report was generated using voice recognition software. It may contain grammatical, syntax or spelling errors. Electronically signed by: Arthur Braden M.D. 08/25/2022 3:39 PM Head CTA 08/25/22 15:36 CT angio neck with con, CT angio head w con CLINICAL HISTORY: 42 years-old Male with slurred speech, h/o R cereb CVA and bas aneurysm. Acute strokelike symptoms COMPARISON STUDY: Head CT of same day, brain MRI and MRA brain 11/25/2018, CTA neck 10/16/2017 TECHNIQUE: Following the IV administration of 121 of Optiray, CT angiogram of the head and neck was performed from the aortic arch to the skull apex. Images are reviewed in the axial, sagittal, and coronal planes. 3-D MIPS images are created and assessed. IV contrast was administered without complication. All measurements were calculated based on NASCET criteria. A dose lowering technique was utilized adhering to the principles of ALARA. CT DOSE: 644.48 mGy.cm FINDINGS: Four-vessel morphology of the thoracic aortic arch. Patency of the innominate and imaged subclavian arteries. The common and internal carotid arteries are widely patent. There is mild atherosclerotic plaque of the left carotid bulb and proximal left ICA resulting in less than 50% stenosis. Fusiform dilation of the left carotid terminus measures up to 7 mm, previously measured at 6 mm. The anterior and middle cerebral arteries are widely patent. Mild atherosclerotic plaque without central stenosis of the bilateral vertebral arteries. Dolichoectasia with aneurysmal dilation of the basilar artery is redemonstrated. The peripherally calcified basilar artery at the level of the dotty measures 2.2 x 1.9 cm, previously 1.5 x 1.5 cm when measured in a similar fashion. This causes moderate mass effect upon the ventral aspect of the pontine brainstem. The distal basilar artery just proximal to the bifurcation measures up to 9 mm transversely, previously 6 mm. No evidence of aneurysm rupture. Chronic in tramural thrombus/atheromatous plaque is again noted within the basilar artery. Chronic right cerebellar infarct. No abnormal intracranial enhancement. Lung apices are clear. No pneumothorax. Nonspecific cervical chain lymphadenopathy measures up to 1.5 cm on the left. No acute fracture. Degenerative changes of the cervical spine with mild kyphotic curvature. IMPRESSION: 1. 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 There is no evidence of aneurysm rupture on today's study. 2. Mild atherosclerosis without dissection, high-grade stenosis or arterial occlusion identified. 3. Mild nonspecific cervical chain lymphadenopathy. ACT 112: Negative or not required by law. The above report was generated using voice recognition software. It may contain grammatical, syntax or spelling errors. Electronically signed by: Arthur Braden M.D. 08/25/2022 4:31 PM Neck CTA 08/25/22 15:36 CT angio neck with con, CT angio head w con CLINICAL HISTORY: 42 years-old Male with slurred speech, h/o R cereb CVA and bas aneurysm. Acute strokelike symptoms COMPARISON STUDY: Head CT of same day, brain MRI and MRA brain 11/25/2018, CTA neck 10/16/2017 TECHNIQUE: Following the IV administration of 121 of Optiray, CT angiogram of the head and neck was performed from the aortic arch to the skull apex. Images are reviewed in the axial, sagittal, and coronal planes. 3-D MIPS images are created and assessed. IV contrast was administered without complication. All measurements were calculated based on NASCET criteria. A dose lowering technique was utilized adhering to the principles of ALARA. CT DOSE: 644.48 mGy.cm FINDINGS: Four-vessel morphology of the thoracic aortic arch. Patency of the innominate and imaged subclavian arteries. The common and internal carotid arteries are widely patent. There is mild atherosclerotic plaque of the left carotid bulb and proximal left ICA resulting in less than 50% stenosis. Fusiform dilation of the left carotid terminus measures up to 7 mm, previously measured at 6 mm. The anterior and middle cerebral arteries are widely patent. Mild atherosclerotic plaque without central stenosis of the bilateral vertebral arteries. Dolichoectasia with aneurysmal dilation of the basilar artery is redemonstrated. The peripherally calcified basilar artery at the level of the dotty measures 2.2 x 1.9 cm, previously 1.5 x 1.5 cm when measured in a similar fashion. This causes moderate mass effect upon the ventral aspect of the pontine brainstem. The distal basilar artery just proximal to the bifurcation measures up to 9 mm transversely, previously 6 mm. No evidence of aneurysm rupture. Chronic intramural thrombus/atheromatous plaque is again noted within the basilar artery. Chronic right cerebellar infarct. No abnormal intracranial enhancement. Lung apices are clear. No pneumothorax. Nonspecific cervical chain lymphadenopathy measures up to 1.5 cm on the left. No acute fracture. Degenerative changes of the cervical spine with mild kyphotic curvature. IMPRESSION: 1. 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 There is no evidence of aneurysm rupture on today's study. 2. Mild atherosclerosis without dissection, high-grade stenosis or arterial occlusion identified. 3. Mild nonspecific cervical chain lymphadenopathy. ACT 112: Negative or not required by law. The above report was generated using voice recognition software. It may contain grammatical, syntax or spelling errors. Electronically signed by: Arthur Braden M.D. 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 The patient doesn't complain of any weakness in his b/l arms. He reports his cough at baseline. Pt denies taking his meds as he should for weeks to months which his sister confirmed at bedside. Pt has been smoking since his teenage and continues to smoke 2-3 packs a day per him. Patient has dysarthric speech. ER spoke to neurosurgery at [facility] and no surgical intervention. He also spoke to welder production line arc neurology who recommended ASA, plavix and MRI. CXR w/ mild pul edema, avoid fluid. Dysarthria, MRI brain pending, neuro consult, c/w asa, plavix, atorvastatin 40 mg daily. Lipid panel in AM. 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 UPON EXAM: GENERAL: Alert and oriented x3. NAD, on RA. Obese Class III. HEENT: No pallor, no icterus. Pupils equal, round and reactive to light. Oral mucosa moist. NECK: No JVD, no neck masses. HEART: S1 and S2 heard. Regular rate and rhythm. No murmur, no gallop. RESPIRATORY SYSTEM: Normal AP diameter. No accessory muscle use. No wheezing, no crackles. ABDOMEN: Soft, bowel sounds present, nontender, no distention. CENTRAL NERVOUS SYSTEM: No facial droop. Dysarthria. Obeys simple commands. Moves extremities. Power B/l extremities wnl. EXTREMITIES: No edema, no erythema seen. I have seen and examined the patient and have discussed the case with the provider above. I agree with the assessment and plan as stated.
--- NOTE | 2022-08-25 18:07 | Magnetic Resonance Report ---
MR brain wo con HISTORY: 42 years-old Male stroke symptoms acute strokelike symptoms COMPARISON: CTA had and neck of same day, brain MRI 11/25/2018 TECHNIQUE: Multiplanar multisequence MRI the brain was obtained without the use of IV contrast FINDINGS: Chronic right cerebellar infarct. Dolichoectasia with aneurysmal dilation of the basilar artery redem onstrated with associated chronic intramural thrombus/atheromatous plaque. There is increased mass ef fect upon the cerebral peduncles and dotty compared to the 2019 exam. The midline structures appear un remarkable otherwise. Study is mildly motion degraded. No evidence of acute or subacute territorial i nfarct. There is an 8 mm area of restricted diffusion with decreased signal on the ADC map involving the left cerebral peduncle, image 9 of the axial series. No acute intracranial hemorrhage, midline sh ift, abnormal extra-axial collection, hydrocephalus or intracranial mass. Cerebral venous sinuses and major arterial flow voids are otherwise unremarkable. Skull, orbits and s oft tissues are unremarkable. Mastoid air cells and paranasal sinuses are clear. IMPRESSION: 1. Subcentimeter acute to subacute appearing infarct of the left cerebral peduncle. 2. 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 3. Chronic right cerebellar infarct. ACT 112: Negative or not required by law. The above report was generated using voice recognition software. It may contain grammatical, syntax o r spelling errors. Electronically signed by: Arthur Braden M.D. 08/25/2022 6:04 PM
[2022-08-25] MEDS ORDERED: LABETALOL HCL IV 5 MG/ML 20ML IV PRN (18:23)
[2022-08-25 20:08] LABS: Troponin I High Sensitivity 6.6 pg/ml (0-20)
[2022-08-25] MEDS ORDERED: PHARMACIST DISCHARGE MED REC CONSULT PRN (20:10)
[2022-08-25] MEDS ORDERED: ONDANSETRON INJ 2 MG/ML 2 ML VIAL IV PRN (20:10)
[2022-08-25] MEDS ORDERED: ACETAMINOPHEN 325 MG TAB PO PRN (20:10)
[2022-08-25] MEDS ORDERED: POLYETHYLENE (MIRALAX) 17 GM PACK PO PRN (20:10)
[2022-08-25] MEDS ORDERED: METOPROLOL TARTRATE 100 MG TAB PO SCH (21:00)
[2022-08-26 02:27] LABS: Basophils # (auto) 0.06 K/uL (0-0.2); Basophils % (auto) 0.6 %; Eosinophils % (auto) 2.1 %; Hematocrit (blood only) 52.1 % (40.1-51.0); Hemoglobin 17.5 g/dl (14.0-18.0); Immature Granulocytes # (auto) 0.07 K/uL (0.00-0.02); Immature Granulocytes % (auto) 0.7 %; Lymphocytes # (auto) 3.53 K/uL (1.2-3.4); Lymphocytes % (auto) 37.4 %; Mean Corpuscular Hemoglobin 31.7 pg (25.0-34.0); Mean Corpuscular Hgb Conc 33.6 g/dL (32.0-36.0); Mean Corpuscular Volume 94.4 fL (80.0-100.0); Mean Platelet Volume 9.8 fL (9.4-12.4); Monocytes # (auto) 0.73 K/uL (0.24-0.82); Monocytes % (auto) 7.7 %; Neutrophils # (auto) 4.85 K/uL (1.4-6.5); Neutrophils % (auto) 51.5 %; Platelet Count 292 K/uL (130-400); RDW Coefficient of Variation 14.3 % (11.5-14.5); RDW Standard Deviation 48.8 fL (36.4-46.3); Red Blood Count 5.52 M/uL (4.63-6.08); White Blood Count 9.44 K/ul (4.8-10.8)
[2022-08-26 02:53] LABS: Anion Gap 6 (3-11); BUN Creatinine Ratio 13.5 (10-20); Blood Urea Nitrogen 13 mg/dl (6-23); Calcium 9.1 mg/dl (8.5-10.1); Carbon Dioxide 31 mmol/L (21-32); Chloride 101 mmol/L (98-107); Cholesterol 216 mg/dl (0-200); Creatinine Clr Calc Pharmacy 121.2 ml/min; Est GFR (Non-African American) 95.7 ml/min; Glucose 103 mg/dl (70-99(Fasting)); HDL Cholesterol 28 mg/dl; Sodium 138 mmol/L (136-145); Triglycerides 423 mg/dl (0-150)
[2022-08-26 02:54] LABS: Chol HDL Ratio 7.7 (0-5)
--- NOTE | 2022-08-26 07:19 | Hospitalist Progress Note ---
Date of Service August 26, 2022 Assessment & Plan (1) CVA (cerebral vascular accident): (2) Basilar artery aneurysm: Plan: Patient is a 42-year-old male with PMH HTN, COPD, tobacco use, CAD, CVA, dolichoectasia of basilar artery aneurysm presented to ER with complaint of slurred speech that started yesterday afternoon. Med non-compliance In ER afebrile, initial BP: 158/102 CT Head: 1. No acute intracranial abnormality. 2. Chronic right cerebellar infarct. 3. 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 There is no evidence of aneurysm rupture on today's study. CTA Head and Neck: 1. 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 There is no evidence of aneurysm rupture on today's study. 2. Mild atherosclerosis without dissection, high-grade stenosis or arterial occlusion identified. 3. Mild nonspecific cervical chain lymphadenopathy. ER physician spoke to Dr Sánchez [facility] neurosurgery who stated no surgical procedure. Also spoke to senior sales operations analyst neurologist - Dr Loving who recommended MRI brain and aspirin 81 and plavix 75mg daily Tele to monitor for arrhythmias - 3.2 ec pause noted on telemetry overnight MRI brain obtained 1. Subcentimeter acute to subacute appearing infarct of the left cerebral peduncle. 2. Dolichoectasia with fusiform aneurysmal dilation of the basilar artery re- demonstrated, better characterized on the CTA head and neck study of same day. 3. Chronic right cerebellar infarct. Lipid panel, A1c 6.3% Echo with bubble study - no significant change from study from October 2017. EF 60 to 65%. There is moderate concentric LVH. Aortic valve sclerosis mild, without significant aortic valvular stenosis. Injection of contrast documented no interatrial shunt. There is flow by color Doppler in the pulmonary artery which is concerning for patent ductus arteriosus. Aspiration precautions PT/OT consult Start atorvastatin 40mg daily Patient is to be on aspirin and Plavix however noncompliant. Restart aspirin, Plavix Neurology consulted - cont. ASA, plavix, lipitor 80 daily, hypercoag. work-up, SHANNON study - outpt Holter - follow up w/ neurology - pt wants to follow up w/ [facility] neurology 3.2 sec pause noted on telemetry ECG on admission - LAFB Metoprolol held by move coordinator -Cardiology consulted - re-started metoprolol -nocturnal hypoxia study ordered - also TSH ordered, and given PDA, blood cultx obtained (3) HTN (hypertension): Plan: Noncompliant home medications. Was to be on amlodipine 10mg daily, metoprolol tartrate 100mg BID. Lasix 20mg daily prn LE edema Restarted metoprolol - cardiology managing Monitor BP and consider restarting amlodipine if needed (4) Dyslipidemia: Plan: atorvastatin 80 mg - per neurology recs (5) CAD (coronary artery disease): Plan: Denies CP, SOB. EKG sinus rhythm, LAFB, poor R wave progression Cardiology following, as above (6) COPD (chronic obstructive pulmonary disease): Plan: Not on inhalers No signs of exacerbation currently Monitor (7) Tobacco use: Plan: 2-3ppd x 30 years Smoking cessation encouraged. Patient states he has no intent of quitting at this time Denies nicotine patch DVT Prophylaxis SCDs Patient's sister Jaja Carlton would look like update. Cell phone number: [phone] DNR/DNI as per discussion with pt and pt's sister Follows with Esteban Underwood PA-C for routine care Admission and Anticipated Discharge Date Admission Date: August 25, 2022 Subjective Pt seen in follow up of CVA (admitted yesterday), overnight 3.2 sec pause on telemetry while sleeping Currently patient is sitting up in chair, in no acute distress His speech is quite garbled, occasionally needs to write things down for me to understand him Reportedly his speech was somewhat garbled after first stroke, however now it is worsened Overall though, patient feels well Denies any chest pain or shortness of breath, denies any weakness in his arms or legs No abdominal pain nausea vomiting Discussed with cardiology and neurology. Nocturnal hypoxia study ordered by cardiology. Review of Systems Review of Systems: All systems reviewed & are unremarkable except as noted in Subjective Physical Exam Physical Exam: General: +obese M, no distress Head: normocephalic, atraumatic Eyes: PERRL, EOM's intact, conjunctiva non-injected, anicteric ENT: normal inspection external ears, nose, mucous membranes moist Neck: supple Lungs: clear, no respiratory distress, no wheezing/rhonchi/rales CV: RRR, no murmur, trace pretibial edema Abd: normal BS, soft, non-tender Ext: no calf tenderness Neuro: A&O x 3, +slurred speech, moves extremities , strength 5/5 Skin: warm, dry Results & Data Results & Data ([facility]) Vital Signs (Past 12 Hours) Vital Signs Temp Pulse Pulse Resp BP BP Pulse Ox 08/26/22 02:47 37.1 C 94 H 20 132/78 92 08/25/22 22:15 80 08/25/22 21:00 08/25/22 22:33 36.4 C L 86 18 126/91 92 08/25/22 20:10 90 08/25/22 20:45 08/25/22 20:29 08/25/22 20:29 37.6 C H 86 20 178/96 H 92 Pulse Ox O2 Del Method O2 Del Method 08/26/22 02:47 Room Air 08/25/22 22:15 08/25/22 21:00 Room Air 08/25/22 22:33 Room Air 08/25/22 20:10 08/25/22 20:45 92 Room Air 08/25/22 20:29 Room Air 08/25/22 20:29 Room Air Laboratory Results 08/26/22 08/26/22 08/26/22 Range/Units 02:20 02:20 02:20 WBC 9.44 (4.8-10.8) K/ul RBC 5.52 (4.63-6.08) M/uL Hgb 17.5 (14.0-18.0) g/dl POC Hgb (14.0-18.0) g/dl Hct 52.1 H (40.1-51.0) % POC Hct (42-52) % MCV 94.4 (80.0-100.0) fL MCH 31.7 (25.0-34.0) pg MCHC 33.6 (32.0-36.0) g/dL RDW Std Deviation 48.8 H (36.4-46.3) fL RDW Coeff of Krupa 14.3 (11.5-14.5) % Plt Count 292 (130-400) K/uL MPV 9.8 (9.4-12.4) fL Immature Gran % (Auto) 0.7 % Neut % (Auto) 51.5 % Lymph % (Auto) 37.4 % Wagoner % (Auto) 7.7 % Eos % (Auto) 2.1 % Baso % (Auto) 0.6 % Neut # (Auto) 4.85 (1.4-6.5) K/uL Lymph # (Auto) 3.53 H (1.2-3.4) K/uL Wagoner # (Auto) 0.73 (0.24-0.82) K/uL Eos # (Auto) 0.20 (0-0.50) K/uL Baso # (Auto) 0.06 (0-0.2) K/uL Immature Gran # (Auto) 0.07 H (0.00-0.02) K/uL PT (9.0-12.0) Seconds INR (0.9-1.1) APTT (21.0-31.0) Seconds PTT Ratio POC Sodium (135-144) mmol/L Sodium 138 (136-145) mmol/L POC Potassium (3.3-5.0) mmol/L Potassium 4.0 (3.5-5.1) mmol/L POC Chloride (101-112) mmol/L Chloride 101 (98-107) mmol/L Carbon Dioxide 31 (21-32) mmol/L POC Total CO2 (24-31) mmol/L Anion Gap 6 (3-11) POC Anion Gap (16-25) mmol/L POC BUN (7-18) mg/dl BUN 13 (6-23) mg/dl Creatinine 0.96 (0.6-1.4) mg/dl POC Creatinine (0.6-1.3) mg/dl Est Cr Clr Drug Dosing 121.2 ml/min Est GFR ( Amer) 111.0 ml/min Est GFR (Non-Af Amer) 95.7 ml/min BUN/Creatinine Ratio 13.5 (10-20) Glucose 103 H (70-99(Fasting)) mg/dl POC Glucose (other) (70-99) mg/dl Estimat Average Glucose Pending Hemoglobin A1c Pending Calcium 9.1 (8.5-10.1) mg/dl POC Ioniz Calcium Samm (1.12-1.32) mmol/l Magnesium (1.7-2.4) mg/dl Total Bilirubin (0.2-1.0) mg/dl AST (13-39) U/L ALT (7-52) U/L Alkaline Phosphatase (34-104) U/L Troponin I High Sens (0-20) pg/ml Total Protein (6.0-8.3) gm/dl Albumin (3.4-5.0) gm/dl Globulin (2.5-4.0) gm/dl Albumin/Globulin Ratio (0.9-2) Triglycerides 423 H (0-150) mg/dl Cholesterol 216 H (0-200) mg/dl LDL Cholesterol, Calc TNP VLDL Cholesterol, Calc TNP HDL Cholesterol 28 mg/dl Cholesterol/HDL Ratio 7.7 H (0-5) SARS-CoV-2, RNA, NAAT (NEGATIVE) 08/26/22 08/25/22 08/25/22 Range/Units 02:20 20:24 15:57 WBC (4.8-10.8) K/ul RBC (4.63-6.08) M/uL Hgb (14.0-18.0) g/dl POC Hgb 19.7 H (14.0-18.0) g/dl Hct (40.1-51.0) % POC Hct 58 H (42-52) % MCV (80.0-100.0) fL MCH (25.0-34.0) pg MCHC (32.0-36.0) g/dL RDW Std Deviation (36.4-46.3) fL RDW Coeff of Krupa (11.5-14.5) % Plt Count (130-400) K/uL MPV (9.4-12.4) fL Immature Gran % (Auto) % Neut % (Auto) % Lymph % (Auto) % Wagoner % (Auto) % Eos % (Auto) % Baso % (Auto) % Neut # (Auto) (1.4-6.5) K/uL Lymph # (Auto) (1.2-3.4) K/uL Wagoner # (Auto) (0.24-0.82) K/uL Eos # (Auto) (0-0.50) K/uL Baso # (Auto) (0-0.2) K/uL Immature Gran # (Auto) (0.00-0.02) K/uL PT (9.0-12.0) Seconds INR (0.9-1.1) APTT (21.0-31.0) Seconds PTT Ratio POC Sodium 138 (135-144) mmol/L Sodium (136-145) mmol/L POC Potassium 4.0 (3.3-5.0) mmol/L Potassium (3.5-5.1) mmol/L POC Chloride 98 L (101-112) mmol/L Chloride (98-107) mmol/L Carbon Dioxide (21-32) mmol/L POC Total CO2 28 (24-31) mmol/L Anion Gap (3-11) POC Anion Gap 16.0 (16-25) mmol/L POC BUN 13 (7-18) mg/dl BUN (6-23) mg/dl Creatinine (0.6-1.4) mg/dl POC Creatinine 0.8 (0.6-1.3) mg/dl Est Cr Clr Drug Dosing ml/min Est GFR ( Amer) ml/min Est GFR (Non-Af Amer) ml/min BUN/Creatinine Ratio (10-20) Glucose (70-99(Fasting)) mg/dl POC Glucose (other) 109 H (70-99) mg/dl Estimat Average Glucose Hemoglobin A1c Calcium (8.5-10.1) mg/dl POC Ioniz Calcium Samm 1.17 (1.12-1.32) mmol/l Magnesium (1.7-2.4) mg/dl Total Bilirubin (0.2-1.0) mg/dl AST (13-39) U/L ALT (7-52) U/L Alkaline Phosphatase (34-104) U/L Troponin I High Sens 7.0 6.8 (0-20) pg/ml Total Protein (6.0-8.3) gm/dl Albumin (3.4-5.0) gm/dl Globulin (2.5-4.0) gm/dl Albumin/Globulin Ratio (0.9-2) Triglycerides (0-150) mg/dl Cholesterol (0-200) mg/dl LDL Cholesterol, Calc VLDL Cholesterol, Calc HDL Cholesterol mg/dl Cholesterol/HDL Ratio (0-5) SARS-CoV-2, RNA, NAAT (NEGATIVE) 08/25/22 08/25/22 08/25/22 Range/Units 15:51 15:49 14:35 WBC (4.8-10.8) K/ul RBC (4.63-6.08) M/uL Hgb (14.0-18.0) g/dl POC Hgb (14.0-18.0) g/dl Hct (40.1-51.0) % POC Hct (42-52) % MCV (80.0-100.0) fL MCH (25.0-34.0) pg MCHC (32.0-36.0) g/dL RDW Std Deviation (36.4-46.3) fL RDW Coeff of Krupa (11.5-14.5) % Plt Count (130-400) K/uL MPV (9.4-12.4) fL Immature Gran % (Auto) % Neut % (Auto) % Lymph % (Auto) % Wagoner % (Auto) % Eos % (Auto) % Baso % (Auto) % Neut # (Auto) (1.4-6.5) K/uL Lymph # (Auto) (1.2-3.4) K/uL Wagoner # (Auto) (0.24-0.82) K/uL Eos # (Auto) (0-0.50) K/uL Baso # (Auto) (0-0.2) K/uL Immature Gran # (Auto) (0.00-0.02) K/uL PT 10.4 (9.0-12.0) Seconds INR 1.0 (0.9-1.1) APTT 31.2 H (21.0-31.0) Seconds PTT Ratio 1.1 POC Sodium (135-144) mmol/L Sodium 136 (136-145) mmol/L POC Potassium (3.3-5.0) mmol/L Potassium 4.0 (3.5-5.1) mmol/L POC Chloride (101-112) mmol/L Chloride 99 (98-107) mmol/L Carbon Dioxide 29 (21-32) mmol/L POC Total CO2 (24-31) mmol/L Anion Gap 8 (3-11) POC Anion Gap (16-25) mmol/L POC BUN (7-18) mg/dl BUN 12 (6-23) mg/dl Creatinine 0.84 (0.6-1.4) mg/dl POC Creatinine (0.6-1.3) mg/dl Est Cr Clr Drug Dosing 138.3 ml/min Est GFR ( Amer) 123.4 ml/min Est GFR (Non-Af Amer) 106.5 ml/min BUN/Creatinine Ratio 14.3 (10-20) Glucose 103 H (70-99(Fasting)) mg/dl POC Glucose (other) (70-99) mg/dl Estimat Average Glucose Hemoglobin A1c Calcium 9.6 (8.5-10.1) mg/dl POC Ioniz Calcium Samm (1.12-1.32) mmol/l Magnesium 1.9 (1.7-2.4) mg/dl Total Bilirubin 0.4 (0.2-1.0) mg/dl AST 18 (13-39) U/L ALT 29 (7-52) U/L Alkaline Phosphatase 67 (34-104) U/L Troponin I High Sens 6.6 (0-20) pg/ml Total Protein 7.9 (6.0-8.3) gm/dl Albumin 4.1 (3.4-5.0) gm/dl Globulin 3.8 (2.5-4.0) gm/dl Albumin/Globulin Ratio 1.1 (0.9-2) Triglycerides 439 H (0-150) mg/dl Cholesterol 251 H (0-200) mg/dl LDL Cholesterol, Calc TNP VLDL Cholesterol, Calc TNP HDL Cholesterol 38 mg/dl Cholesterol/HDL Ratio 6.6 H (0-5) SARS-CoV-2, RNA, NAAT NEGATIVE (NEGATIVE) 08/25/22 Range/Units 14:35 WBC 10.93 H (4.8-10.8) K/ul RBC 5.77 (4.63-6.08) M/uL Hgb 18.5 H (14.0-18.0) g/dl POC Hgb (14.0-18.0) g/dl Hct 53.1 H (40.1-51.0) % POC Hct (42-52) % MCV 92.0 (80.0-100.0) fL MCH 32.1 (25.0-34.0) pg MCHC 34.8 (32.0-36.0) g/dL RDW Std Deviation 48.3 H (36.4-46.3) fL RDW Coeff of Krupa 14.4 (11.5-14.5) % Plt Count 312 (130-400) K/uL MPV 9.6 (9.4-12.4) fL Immature Gran % (Auto) % Neut % (Auto) % Lymph % (Auto) % Wagoner % (Auto) % Eos % (Auto) % Baso % (Auto) % Neut # (Auto) (1.4-6.5) K/uL Lymph # (Auto) (1.2-3.4) K/uL Wagoner # (Auto) (0.24-0.82) K/uL Eos # (Auto) (0-0.50) K/uL Baso # (Auto) (0-0.2) K/uL Immature Gran # (Auto) (0.00-0.02) K/uL PT (9.0-12.0) Seconds INR (0.9-1.1) APTT (21.0-31.0) Seconds PTT Ratio POC Sodium (135-144) mmol/L Sodium (136-145) mmol/L POC Potassium (3.3-5.0) mmol/L Potassium (3.5-5.1) mmol/L POC Chloride (101-112) mmol/L Chloride (98-107) mmol/L Carbon Dioxide (21-32) mmol/L POC Total CO2 (24-31) mmol/L Anion Gap (3-11) POC Anion Gap (16-25) mmol/L POC BUN (7-18) mg/dl BUN (6-23) mg/dl Creatinine (0.6-1.4) mg/dl POC Creatinine (0.6-1.3) mg/dl Est Cr Clr Drug Dosing ml/min Est GFR ( Amer) ml/min Est GFR (Non-Af Amer) ml/min BUN/Creatinine Ratio (10-20) Glucose (70-99(Fasting)) mg/dl POC Glucose (other) (70-99) mg/dl Estimat Average Glucose Hemoglobin A1c Calcium (8.5-10.1) mg/dl POC Ioniz Calcium Samm (1.12-1.32) mmol/l Magnesium (1.7-2.4) mg/dl Total Bilirubin (0.2-1.0) mg/dl AST (13-39) U/L ALT (7-52) U/L Alkaline Phosphatase (34-104) U/L Troponin I High Sens (0-20) pg/ml Total Protein (6.0-8.3) gm/dl Albumin (3.4-5.0) gm/dl Globulin (2.5-4.0) gm/dl Albumin/Globulin Ratio (0.9-2) Triglycerides (0-150) mg/dl Cholesterol (0-200) mg/dl LDL Cholesterol, Calc VLDL Cholesterol, Calc HDL Cholesterol mg/dl Cholesterol/HDL Ratio (0-5) SARS-CoV-2, RNA, NAAT (NEGATIVE) Diagnostic Findings MRI brain FINDINGS: Chronic right cerebellar infarct. Dolichoectasia with aneurysmal dilation of the basilar artery redemonstrated with associated chronic intramural thrombus/atheromatous plaque. There is increased mass effect upon the cerebral peduncles and dotty compared to the 2019 exam. The midline structures appear unremarkable otherwise. Study is mildly motion degraded. No evidence of acute or subacute territorial infarct. There is an 8 mm area of restricted diffusion with decreased signal on the ADC map involving the left cerebral peduncle, image 9 of the axial series. No acute intracranial hemorrhage, midline shift, abnormal extra-axial collection, hydrocephalus or intracranial mass. Cerebral venous sinuses and major arterial flow voids are otherwise unremarkable. Skull, orbits and soft tissues are unremarkable. Mastoid air cells and paranasal sinuses are clear. IMPRESSION: 1. Subcentimeter acute to subacute appearing infarct of the left cerebral peduncle. 2. Dolichoectasia with fusiform aneurysmal dilation of the basilar artery redemonstrated, better characterized on the CTA head and neck study of same day. 3. Chronic right cerebellar infarct. Medications Administered Current Inpatient Medications Acetaminophen (Acetaminophen 325 Mg Tab) 650 mg PO Q4H PRN PRN Reason: Pain or Fever Stop: 09/24/22 20:09 Aspirin (Aspirin 81 Mg Ectab) 81 mg PO DAILY KHUSHBU Stop: 09/25/22 08:59 Atorvastatin Calcium (Atorvastatin 40 Mg Tab) 40 mg PO QAM KHUSHBU Stop: 09/25/22 08:59 Clopidogrel Bisulfate (Clopidogrel Bisulfate 75 Mg Tab) 75 mg PO QAM KHUSHBU Stop: 09/25/22 08:59 Labetalol HCl (Labetalol Hcl Iv 5 Mg/Ml 20ml) 5 mg IV Q4H PRN PRN Reason: hypertension Stop: 09/24/22 18:22 Metoprolol Tartrate (Metoprolol Tartrate 100 Mg Tab) 100 mg PO BID KHUSHBU Stop: 09/24/22 20:59 Last Admin: 08/25/22 21:01 Dose: 100 mg Miscellaneous Information (Pharmacist Discharge Med Rec Consult) 1 each N/A UD PRN PRN Reason: Consult Stop: 09/24/22 20:09 Ondansetron HCl (Ondansetron Inj 2 Mg/Ml 2 Ml Vial) 4 mg IV Q6H PRN PRN Reason: Nausea Stop: 09/24/22 20:09 Polyethylene Glycol (Polyethylene (Miralax) 17 Gm Pack) 17 gm PO DAILY PRN PRN Reason: Constipation Stop: 09/24/22 20:09 (1) CVA (cerebral vascular accident) CVA mechanism: unspecified Qualified Code(s): I63.9 - Cerebral infarction, unspecified
[2022-08-26 07:39] LABS: Estimated Average Glucose 134 mg/dl; Hemoglobin A1C 6.3 % (4.5-5.6)
[2022-08-26] MEDS ORDERED: ATORVASTATIN 40 MG TAB PO SCH (09:00)
[2022-08-26] MEDS: ASPIRIN 81 MG ECTAB PO SCH (09:29)
[2022-08-26] MEDS: CLOPIDOGREL BISULFATE 75 MG TAB PO SCH (09:29)
[2022-08-26] MEDS: METOPROLOL TARTRATE 100 MG TAB PO SCH (12:37)
--- NOTE | 2022-08-26 12:38 | Cardiology Consultation ---
Date of Consultation August 26, 2022 Assessment & Plan (1) Mobitz type 1 second degree AV block: (2) CVA (cerebral vascular accident): (3) CAD (coronary artery disease): (4) Tobacco use: (5) Basilar artery aneurysm: (6) PDA (patent ductus arteriosus): Plan Obstructive sleep apnea suspected given evidence of second-degree AV block Mobitz type I during sleep. Patient denies prior evaluation. Recommend overnight nocturnal pulse ox trend. Currently tachycardic as a result of beta- wanda withdrawal. Recommend 100 mg of oral Lopressor x1 now. I will reduce his evening dose to 50 mg daily and continue telemetry monitoring. Assess baseline TSH. Evidence of possible patent ductus arteriosus per echocardiogram. Findings present on prior studies dating back to 2018. There is no left ventricular chamber enlargement or signs/symptoms of congestive heart failure or en docarditis. Blood cultures will be ordered for completeness due to the risk of rare episodes of endocarditis associated with PDA. PDA is not typically associated with cerebrovascular accident or TIA. Smoking cessation advised. Continue dual antiplatelet therapy and statin. Await neurology evaluation. History of Present Illness Reason for Consultation: 3 second pause Requesting Physician: Dr. Williamson Attending Physician: Cristi Williamson MD History of Present Illness 42-year-old patient presented to the ER 08/25/2022 secondary to slurred speech and difficulty with ambulation. Symptoms similar to prior CVA. Denies any focal weakness of the upper or lower extremities. No facial asymmetry or dysphagia. History of prior cerebellar infarct and cerebral aneurysm. Ch ronically treated with aspirin and Plavix as per neurosurgery, however, admits to some noncompliance. Currently, patient is seated upright, awake and alert. His speech remains slurred. Tolerated his midday meal. No choking or cough. Metoprolol placed on hold due to evidence of a 2.5, and three-point second pauses overnight in the setting of second-degree AV block Mobitz type I. Patient denies history of obstructive sleep apnea. Previously evaluated by the undersigned in [address] evidence of coronary calcifications. Noncompliant with follow-up appointments. Prescribed antiplatelet therapy and statin at that time. [facility], there is an echocardiogram performed in 2018 suggestive of possible patent ductus arteriosus. Further evaluation with CT angiogram recommended, however, it appears that a definitive study was not performed. Patient denies orthopnea, PND, chest discomfort, or unusual shortness of breath. No recent edema, or weight gain. Denies palpitations, lightheadedness, dizziness, syncope, or near syncope. Allergies Allergy/AdvReac Type Severity Reaction Status Date / Time Penicillins Allergy Mild UNKNOWN Verified 08/25/22 16:45 oxycodone AdvReac Mild GI DISTRESS Verified 08/25/22 16:45 Home Medications Medication Instructions Recorded Confirmed Type acetaminophen 500 mg tablet 500 - 1,000 mg PO BID PRN Pain 11/25/18 08/25/22 History (Tylenol Extra Strength) aspirin 81 mg tablet,delayed 81 mg PO DAILY 11/25/18 08/25/22 History release (Connie Low Dose Aspirin) amlodipine 10 mg tablet 10 mg PO DAILY 08/25/22 08/25/22 History furosemide 20 mg tablet 20 mg PO DAILY PRN Edema 08/25/22 08/25/22 History metoprolol tartrate 100 mg tablet 100 mg PO BID 08/25/22 08/25/22 History Patient History Medical History Basilar artery aneurysm CAD (coronary artery disease) COPD (chronic obstructive pulmonary disease) CVA (cerebral vascular accident) Dyslipidemia HTN (hypertension) Tobacco use Surgical History History of arthroscopy of shoulder History of umbilical hernia repair Family History Father Coronary heart disease [place] age 50's Hypertension Grandfather (Paternal) Coronary heart disease Social History Smoking Status: Former smoker Cigarettes Per Day: 2-3ppd x 30 years; Hx Alcohol Use: No Hx Substance Use: No Preferred Language: Latvian Communication Ability: Effective Work Station Support Specialist Required: No Beliefs That Will Affect Care: None marital status: Single Current Living Situation: Other Current Living Situation Comment: pt lives with someone, not [facility] business current occupational status: employed Feels Safe at Home: Yes Safety Concerns: Feels Safe At This Time Review of Systems Review of Systems: All systems reviewed & are unremarkable except as noted in Subjective Physical Exam Constitutional: well nourished and + obese; no acute distress Respiratory: no respiratory distress, no labored breathing and no retractions Cardiovascular: Rate/Rhythm: regular rate, regular rhythm and + tachycardic Heart Sounds: normal S1 and normal S2; no murmur Vessels: radial pulses present; no JVD and no carotid bruit Extremities: no edema Gastrointestinal (Abdomen): Inspection/Auscultation: normal bowel sounds; abdomen not distended and no abdominal edema Percussion/Palpation: abdomen soft; abdomen nontender, no guarding and abdomen not rigid Neurologic: Speech / Cognition: + abnormal speech Results & [facility] ([facility]) Vital Signs (Past 12 Hours) Vital Signs Temp Pulse Pulse Resp BP Pulse Ox O2 Del Method 08/26/22 11:15 37.2 C 90 20 130/90 90 Room Air 08/26/22 07:24 37.2 C 88 20 138/82 92 Room Air 08/26/22 02:47 37.1 C 94 H 20 132/78 92 Room Air Diagnostic Findings 2D echocardiogram: Left ventricular ejection fraction 60-65%. Moderate concentric left ventricular hypertrophy. No evidence of intracardiac shunt with injection of agitated saline contrast. There is flow by color Doppler in the pulmonary artery which is concerning for patent ductus arteriosus. Consider dedicated CT scan for additional evaluation. (1) CVA (cerebral vascular accident) CVA mechanism: unspecified Qualified Code(s): I63.9 - Cerebral infarction, unspecified
--- NOTE | 2022-08-26 16:10 | Neurology Consultation ---
Date of Consultation August 26, 2022 Assessment & Plan (1) CVA (cerebral vascular accident): Impression: The patient had acute dysarthria and ataxia the day before yesterday, and presented emergency department yesterday. He was not a candidate for thrombolytic treatment because of being outside of treatment window. Brain MRI showed left cerebral peduncle acute ischemic stroke. The patient has history of a right cerebellar ischemic stroke 4 years ago. He has been noncompliant to treatment including antiplatelet treatment. He has multiple stroke risk factors including tobacco use, hyperlipidemia, hypertension, prior stroke, basilar artery dolichoectasia with aneurysmal dilatation, obesity, probable obstructive sleep apnea, and sedentary lifestyle. The likely mechanism of stroke is basilar artery dolichoectasia and related intra-arterial hemodynamic abnormality, which might induce thrombus formation. Recommendations: The patient should stay on daily aspirin 81 mg and Plavix 75 mg for secondary stroke prevention. We will increase Lipitor dosage to 80 mg at bedtime. Goal LDL level is lower than 70. Modification of diet is strongly recommended. Cessation of smoking and compliance on treatment is strongly recommended. Management of hypertension. Goal blood pressure is below 130/80. Outpatient work-up to investigate for obstructive sleep apnea, which is 1 of stroke risk factor. We should keep blood sugar within normal range. Hemoglobin A1c showed elevation. Outpatient follow-up with primary care physician to monitor blood sugar. Hypercoagulable state work-up. Outpatient physical therapy. Consider outpatient Holter monitoring to rule out paroxysmal atrial fibrillation, which seems to be less likely based on current cardiac evaluation. Follow-up with neurology. I will contact with [facility] neurology group to set up a follow-up appointment. If the patient stays stable, he can be discharged home in next 24 to 48 hours. (2) HTN (hypertension): Impression: The patient has history of hypertension on treatment, however, he has not been very compliant. Recommendations: As seen above. (3) Dyslipidemia: Impression: Lipid panel showed significantly elevated triglycerides and total cholesterol. Recommendations: As seen above. (4) Basilar artery aneurysm: Impression: The patient has established diagnosis of basilar artery dolichoectasia with aneurysmal dilatation. He has been on double antiplatelet treatment, however, his compliance has been very poor. The patient was not considered a candidate for vascular intervention per neurosurgery. Recommendations: Double antiplatelet treatment and Lipitor. Follow-up with neurosurgery. (5) Tobacco use: Impression: The patient has been smoker for over 30 years. He used to smoke 2 to 3 packs/day, but currently smokes health pack per day as he reported. Recommendations: Importance of cessation of smoking is explained to the patient. (6) Mobitz type 1 second degree AV block: Impression: The patient has been followed by cardiology. (7) PDA (patent ductus arteriosus): Impression: Echocardiogram showed patent ductus arteriosus, as seen before. This was not considered a risk factor for cardioembolic event. Blood cultures were ordered to rule out infections. Plan Thank you for the consultation. History of Present Illness Reason for Consultation: CVA Requesting Physician: Cristi Williamson MD Attending Physician: Cristi Williamson MD History of Present Illness The patient is a 42-year-old gentleman, who presented emergency department yesterday afternoon, because of slurred speech, and unsteady gait, which started the day before yesterday after daytime nap. He denies having any additional neurological symptoms including numbness, weakness, swallowing difficulty, double vision, head and neck pain, recent head or neck trauma, chest pain, palp itations, or mental status change. He has history of cerebellar stroke, affected right PICA 4 years ago. Stroke work-up then had showed basilar artery dolichoectasia with basilar artery aneurysm. The patient has been followed by neurosurgery and was not considered a candidate for vascular intervention. Yesterday, the patient had a head CT, which did not show acute intracranial pathology but CT angiogram of head and neck showed enlargement of basilar artery dolichoectasia and aneurysm without additional hemodynamically significant stenosis or intraarterial thrombus. The case was discussed with the patient's neurosurgeon, and they did not recommend intervention. The patient reported some improvement of speech disturbance as well as imbalance yesterday while he was in the emergency department. He was outside of thrombolytic treatment window. Blood pressure was elevated. He was admitted to hospital for stroke work-up. Brain MRI revealed left cerebral peduncle acute to subacute appearing subcentimeter ischemic stroke. There was finding which was consistent with chronic right cerebellar infarct. After discussing the case with on-call neurology, the patient was started on aspirin and Plavix. He supposed to be on double antiplatelet treatment, but his compliance has been very poor. The patient has multiple stroke risk factors. Since admission, echocardiogram was done, which showed patent ductus arteriosus. This was not considered a risk factor for cerebrovascular accident. The patient had Mobitz type I degree AV block, and beta-wanda was stopped. Blood pressure medications has been adjusted by cardiology. The patient denies having palpitations and he has no diagnosis of atrial fibrillation. Echocardiogram did not show atrial dilatation. Blood cultures were ordered based on having PDA. LDL show significantly elevated total cholesterol and triglycerides. The patient is started on Lipitor 40 mg. He has been heavy smoker for 30 years. He used to smoke 2 to 3 packs a day, but currently, he smokes half pack per day as he reported. He is not interested in cessation of smoking. In chart, there was no work-up to rule out hypercoagulable state. Even though the patient does not report snoring and choking in sleep, however, he is overweight, with short neck, and reports having excessive daytime sleepiness, highly suspicious for obstructive sleep apnea. The patient does not remember having polysomnography in the past. He reports that his speech and imbalance has been better since admission, but still he has moderately significant dysarthria without swallowing difficulty. He can ambulate independently but unsteady on his feet. He does not want inpatient rehabilitation but agree with outpatient physical therapy. Stroke risk factors are fully explained to patient. Patient understood the importance of cessation of smoking and compliance on treatment. I have reviewed the patient's chart including imaging studies and visualized them personally. I have discussed the case with the patient in emergency department physician. Allergies Allergy/AdvReac Type Severity Reaction Status Date / Time Penicillins Allergy Mild UNKNOWN Verified 08/25/22 16:45 oxycodone AdvReac Mild GI DISTRESS Verified 08/25/22 16:45 Home Medications Medication Instructions Recorded Confirmed Type acetaminophen 500 mg tablet 500 - 1,000 mg PO BID PRN Pain 11/25/18 08/25/22 History (Tylenol Extra Strength) aspirin 81 mg tablet,delayed 81 mg PO DAILY 11/25/18 08/25/22 History release (Connie Low Dose Aspirin) amlodipine 10 mg tablet 10 mg PO DAILY 08/25/22 08/25/22 History furosemide 20 mg tablet 20 mg PO DAILY PRN Edema 08/25/22 08/25/22 History metoprolol tartrate 100 mg tablet 100 mg PO BID 08/25/22 08/25/22 History Patient History Medical History Basilar artery aneurysm CAD (coronary artery disease) COPD (chronic obstructive pulmonary disease) CVA (cerebral vascular accident) Dyslipidemia HTN (hypertension) Tobacco use Surgical History History of arthroscopy of shoulder History of umbilical hernia repair Family History Father Coronary heart disease [place] age 50's Hypertension Grandfather (Paternal) Coronary heart disease Social History Smoking Status: Former smoker Cigarettes Per Day: 2-3ppd x 30 years; Hx Alcohol Use: No Hx Substance Use: No Preferred Language: Lao Communication Ability: Effective Milk Collector Required: No Beliefs That Will Affect Care: None marital status: Single Current Living Situation: Other Current Living Situation Comment: pt lives with someone, not [facility] business current occupational status: employed Feels Safe at Home: Yes Safety Concerns: Feels Safe At This Time Review of Systems Review of Systems: All systems reviewed & are unremarkable except as noted in HPI & below Physical Exam Physical Exam: General Examination: Constitutional: Well developed overweight person in no acute distress. HEENT: Normal exam with inspection. CV: Hearth rhythm is regular. Neck: Supple, no carotid bruits. Lungs: Non-labored and comfortable breathing. Abdomen: Soft, non-tender, non-distended. Skin: No rash or ecchymosis. Extremities: No edema or cyanosis NEUROLOGICAL EXAMINATION: Mental Status: Alert and oriented to place, person and time. Cranial Nerves: II-XII are intact. No nystagmus. Funduscopy: Normal looking optic discs. Motor: 5/5 in all extremities without asymmetry. DTRs: 1+ all. No Babinski. Tone: Normal without spasticity or rigidity. Sensory: Intact to all sensory modalities. Coordination: Slight dysmetria with left FTN and HTS testing. Speech: Dysarthric, comprehension is intact. Gait: Ataxic but able to walk independently. Musculoskeletal: Normal muscle bulk, no atrophy. Results & Data ([facility]) Vital Signs (Past 12 Hours) Vital Signs Temp Pulse Resp BP Pulse Ox O2 Del Method 08/26/22 11:15 37.2 C 90 20 130/90 90 Room Air 08/26/22 07:24 37.2 C 88 20 138/82 92 Room Air Laboratory Results Laboratory Results - last 24 hr 08/25/22 08/25/22 08/25/22 14:35 15:49 15:51 WBC RBC Hgb POC Hgb Hct POC Hct MCV MCH MCHC RDW Std Deviation RDW Coeff of Krupa Plt Count MPV Immature Gran % (Auto) Neut % (Auto) Lymph % (Auto) Izard % (Auto) Eos % (Auto) Baso % (Auto) Neut # (Auto) Lymph # (Auto) Izard # (Auto) Eos # (Auto) Baso # (Auto) Immature Gran # (Auto) PT 10.4 INR 1.0 APTT 31.2 H PTT Ratio 1.1 POC Sodium Sodium 136 POC Potassium Potassium 4.0 POC Chloride Chloride 99 Carbon Dioxide 29 POC Total CO2 Anion Gap 8 POC Anion Gap POC BUN BUN 12 Creatinine 0.84 POC Creatinine Est Cr Clr Drug Dosing 138.3 Est GFR ( Amer) 123.4 Est GFR (Non-Af Amer) 106.5 BUN/Creatinine Ratio 14.3 Glucose 103 H POC Glucose (other) Estimat Average Glucose Hemoglobin A1c Calcium 9.6 POC Ioniz Calcium Samm Magnesium 1.9 Total Bilirubin 0.4 AST 18 ALT 29 Alkaline Phosphatase 67 Troponin I High Sens 6.6 Total Protein 7.9 Albumin 4.1 Globulin 3.8 Albumin/Globulin Ratio 1.1 Triglycerides 439 H Cholesterol 251 H LDL Cholesterol, Calc TNP VLDL Cholesterol, Calc TNP HDL Cholesterol 38 Cholesterol/HDL Ratio 6.6 H SARS-CoV-2, RNA, NAAT NEGATIVE 08/25/22 08/25/22 08/26/22 15:57 20:24 02:20 WBC RBC Hgb POC Hgb 19.7 H Hct POC Hct 58 H MCV MCH MCHC RDW Std Deviation RDW Coeff of Krupa Plt Count MPV Immature Gran % (Auto) Neut % (Auto) Lymph % (Auto) Izard % (Auto) Eos % (Auto) Baso % (Auto) Neut # (Auto) Lymph # (Auto) Izard # (Auto) Eos # (Auto) Baso # (Auto) Immature Gran # (Auto) PT INR APTT PTT Ratio POC Sodium 138 Sodium POC Potassium 4.0 Potassium POC Chloride 98 L Chloride Carbon Dioxide POC Total CO2 28 Anion Gap POC Anion Gap 16.0 POC BUN 13 BUN Creatinine POC Creatinine 0.8 Est Cr Clr Drug Dosing Est GFR ( Amer) Est GFR (Non-Af Amer) BUN/Creatinine Ratio Glucose POC Glucose (other) 109 H Estimat Average Glucose Hemoglobin A1c Calcium POC Ioniz Calcium Samm 1.17 Magnesium Total Bilirubin AST ALT Alkaline Phosphatase Troponin I High Sens 6.8 7.0 Total Protein Albumin Globulin Albumin/Globulin Ratio Triglycerides Cholesterol LDL Cholesterol, Calc VLDL Cholesterol, Calc HDL Cholesterol Cholesterol/HDL Ratio SARS-CoV-2, RNA, NAAT 08/26/22 08/26/22 08/26/22 02:20 02:20 02:20 WBC 9.44 RBC 5.52 Hgb 17.5 POC Hgb Hct 52.1 H POC Hct MCV 94.4 MCH 31.7 MCHC 33.6 RDW Std Deviation 48.8 H RDW Coeff of Krupa 14.3 Plt Count 292 MPV 9.8 Immature Gran % (Auto) 0.7 Neut % (Auto) 51.5 Lymph % (Auto) 37.4 Izard % (Auto) 7.7 Eos % (Auto) 2.1 Baso % (Auto) 0.6 Neut # (Auto) 4.85 Lymph # (Auto) 3.53 H Izard # (Auto) 0.73 Eos # (Auto) 0.20 Baso # (Auto) 0.06 Immature Gran # (Auto) 0.07 H PT INR APTT PTT Ratio POC Sodium Sodium 138 POC Potassium Potassium 4.0 POC Chloride Chloride 101 Carbon Dioxide 31 POC Total CO2 Anion Gap 6 POC Anion Gap POC BUN BUN 13 Creatinine 0.96 POC Creatinine Est Cr Clr Drug Dosing 121.2 Est GFR ( Amer) 111.0 Est GFR (Non-Af Amer) 95.7 BUN/Creatinine Ratio 13.5 Glucose 103 H POC Glucose (other) Estimat Average Glucose 134 Hemoglobin A1c 6.3 H Calcium 9.1 POC Ioniz Calcium Samm Magnesium Total Bilirubin AST ALT Alkaline Phosphatase Troponin I High Sens Total Protein Albumin Globulin Albumin/Globulin Ratio Triglycerides 423 H Cholesterol 216 H LDL Cholesterol, Calc TNP VLDL Cholesterol, Calc TNP HDL Cholesterol 28 Cholesterol/HDL Ratio 7.7 H SARS-CoV-2, RNA, NAAT Diagnostic Findings Chest X-Ray 08/25/22 14:35 XR chest 1V portable CLINICAL HISTORY: stroke alert TECHNIQUE: Single frontal radiograph of the chest was obtained. Comparison: Comparison is made to chest radiograph 11/25/2018 FINDINGS: No lines and tubes are seen. Cardiomegaly is noted. Prominence and cephalization of the vasculature is seen. No evidence of pleural effusion or pneumothorax. IMPRESSION: Cardiomegaly and mild pulmonary edema. ACT 112: Negative or not required by law. Electronically signed by: Ad Delgado M.D. 08/25/2022 3:[address] 08/25/22 14:35 CT head/brain wo con CLINICAL HISTORY: 42 years-old Male with Stroke Alert. Acute dizziness with strokelike symptoms TECHNIQUE: Multiple axial CT images of the head were obtained without contrast. A dose lowering technique was utilized adhering to the principles of ALARA. CT DOSE: 1311.06 mGy.cm COMPARISON: MRA of the head 11/25/2018, brain MRI 11/25/2018. FINDINGS: No acute intracranial hemorrhage, midline shift, intracranial mass, hydrocephalus, territorial ischemia or abnormal extra-axial collection. Dolichoectasia with aneurysmal dilation of the basilar artery is redemonstrated. The peripherally calcified basilar artery at the level of the dotty measures 2.3 x 1.9 cm, previously 1.5 x 1.5 cm when measured in a similar fashion. This causes moderate mass effect upon the ventral aspect of the pontine brainstem. The distal basilar artery just proximal to the bifurcation measures up to 9 mm t ransversely, previously 6 mm. No evidence of aneurysm rupture. Chronic intramural thrombus versus atheromatous plaque is again noted within the basilar artery. Additional cerebral vascular calcifications of the carotid and middle cerebral arteries. Chronic right cerebellar infarct. The calvarium is intact. The paranasal sinuses, mastoid air cells, and middle ear cavities are clear. IMPRESSION: 1. No acute intracranial abnormality. 2. Chronic right cerebellar infarct. 3. 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 There is no evidence of aneurysm rupture on today's study. ACT 112: Negative or not required by law. The above report was generated using voice recognition software. It may contain grammatical, syntax or spelling errors. Electronically signed by: Arthur Braden M.D. 08/25/2022 3:39 PM Head CTA 08/25/22 15:36 CT angio neck with con, CT angio head w con CLINICAL HISTORY: 42 years-old Male with slurred speech, h/o R cereb CVA and bas aneurysm. Acute strokelike symptoms COMPARISON STUDY: Head CT of same day, brain MRI and MRA brain 11/25/2018, CTA neck 10/16/2017 TECHNIQUE: Following the IV administration of 121 of Optiray, CT angiogram of the head and neck was performed from the aortic arch to the skull apex. Images are reviewed in the axial, sagittal, and coronal planes. 3-D MIPS images are created and assessed. IV contrast was administered without complication. All measurements were calculated based on NASCET criteria. A dose lowering technique was utilized adhering to the principles of ALARA. CT DOSE: 644.48 mGy.cm FINDINGS: Four-vessel morphology of the thoracic aortic arch. Patency of the innominate and imaged subclavian arteries. The common and internal carotid arteries are widely patent. There is mild atherosclerotic plaque of the left carotid bulb and proximal left ICA resulting in less than 50% stenosis. Fusiform dilation of the left carotid terminus measures up to 7 mm, previously measured at 6 mm. The anterior and middle cerebral arteries are widely patent. Mild atherosclerotic plaque without central stenosis of the bilateral vertebral arteries. Dolichoectasia with aneurysmal dilation of the basilar artery is redemonstrated. The peripherally calcified basilar artery at the level of the dotty measures 2.2 x 1.9 cm, previously 1.5 x 1.5 cm when measured in a similar fashion. This causes moderate mass effect upon the ventral aspect of the pontine brainstem. The distal basilar artery just proximal to the bifurcation measures up to 9 mm transversely, previously 6 mm. No evidence of aneurysm rupture. Chronic intramural thrombus/atheromatous plaque is again noted within the basilar arter y. Chronic right cerebellar infarct. No abnormal intracranial enhancement. Lung apices are clear. No pneumothorax. Nonspecific cervical chain lymphadenopathy measures up to 1.5 cm on the left. No acute fracture. Degenerative changes of the cervical spine with mild kyphotic curvature. IMPRESSION: 1. 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 There is no evidence of aneurysm rupture on today's study. 2. Mild atherosclerosis without dissection, high-grade stenosis or arterial occlusion identified. 3. Mild nonspecific cervical chain lymphadenopathy. ACT 112: Negative or not required by law. The above report was generated using voice recognition software. It may contain grammatical, syntax or spelling errors. Electronically signed by: Arthur Braden M.D. 08/25/2022 4:31 PM Neck CTA 08/25/22 15:36 CT angio neck with con, CT angio head w con CLINICAL HISTORY: 42 years-old Male with slurred speech, h/o R cereb CVA and bas aneurysm. Acute strokelike symptoms COMPARISON STUDY: Head CT of same day, brain MRI and MRA brain 11/25/2018, CTA neck 10/16/2017 TECHNIQUE: Following the IV administration of 121 of Optiray, CT angiogram of the head and neck was performed from the aortic arch to the skull apex. Images are reviewed in the axial, sagittal, and coronal planes. 3-D MIPS images are created and assessed. IV contrast was administered without complication. All measurements were calculated based on NASCET criteria. A dose lowering technique was utilized adhering to the principles of ALARA. CT DOSE: 644.48 mGy.cm FINDINGS: Four-vessel morphology of the thoracic aortic arch. Patency of the innominate and imaged subclavian arteries. The common and internal carotid arteries are widely patent. There is mild atherosclerotic plaque of the left carotid bulb and proximal left ICA resulting in less than 50% stenosis. Fusiform dilation of the left carotid terminus measures up to 7 mm, previously measured at 6 mm. The anterior and middle cerebral arteries are widely patent. Mild atherosclerotic plaque without central stenosis of the bilateral vertebral arteries. Dolichoectasia with aneurysmal dilation of the basilar artery is redemonstrated. The peripherally calcified basilar artery at the level of the dotty measures 2.2 x 1.9 cm, previously 1.5 x 1.5 cm when measured in a similar fashion. This causes moderate mass effect upon the ventral aspect of the pontine brainstem. The distal basilar artery just proximal to the bifurcation measures up to 9 mm t ransversely, previously 6 mm. No evidence of aneurysm rupture. Chronic intramural thrombus/atheromatous plaque is again noted within the basilar artery. Chronic right cerebellar infarct. No abnormal intracranial enhancement. Lung apices are clear. No pneumothorax. Nonspecific cervical chain lymphadenopathy measures up to 1.5 cm on the left. No acute fracture. Degenerative changes of the cervical spine with mild kyphotic curvature. IMPRESSION: 1. 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 There is no evidence of aneurysm rupture on today's study. 2. Mild atherosclerosis without dissection, high-grade stenosis or arterial occlusion identified. 3. Mild nonspecific cervical chain lymphadenopathy. ACT 112: Negative or not required by law. The above report was generated using voice recognition software. It may contain grammatical, syntax or spelling errors. Electronically signed by: Arthur Braden M.D. 08/25/2022 4:31 PM Brain MRI 08/25/22 17:07 MR brain wo con HISTORY: 42 years-old Male stroke symptoms acute strokelike symptoms COMPARISON: CTA had and neck of same day, brain MRI 11/25/2018 TECHNIQUE: Multiplanar multisequence MRI the brain was obtained without the use of IV contrast FINDINGS: Chronic right cerebellar infarct. Dolichoectasia with aneurysmal dilation of the basilar artery redemonstrated with associated chronic intramural thrombus/atheromatous plaque. There is increased mass effect upon the cerebral peduncles and dotty compared to the 2019 exam. The midline structures appear unremarkable otherwise. Study is mildly motion degraded. No evidence of acute or subacute territorial infarct. There is an 8 mm area of restricted diffusion with decreased signal on the ADC map involving the left cerebral peduncle, image 9 of the axial series. No acute intracranial hemorrhage, midline shift, abnormal extra-axial collection, hydrocephalus or intracranial mass. Cerebral venous sinuses and major arterial flow voids are otherwise unremarkable. Skull, orbits and soft tissues are unremarkable. Mastoid air cells and paranasal sinuses are clear. IMPRESSION: 1. Subcentimeter acute to subacute appearing infarct of the left cerebral peduncle. 2. Dolichoectasia with fusiform aneurysmal dilation of the basilar artery redemonstrated, better characterized on the CTA head and neck study of same day. 3. Chronic right cerebellar infarct. ACT 112: Negative or not required by law. The above report was generated using voice recognition software. It may contain grammatical, syntax or spelling errors. Electronically signed by: Arthur Braden M.D. 08/25/2022 6:04 PM (1) CVA (cerebral vascular accident) CVA mechanism: unspecified Qualified Code(s): I63.9 - Cerebral infarction, unspecified
[2022-08-26] MEDS ORDERED: METOPROLOL TARTRATE 50 MG TAB PO SCH (21:00)
[2022-08-27 06:47] LABS: Basophils # (auto) 0.05 K/uL (0-0.2); Basophils % (auto) 0.6 %; Eosinophils # (auto) 0.23 K/uL (0-0.50); Eosinophils % (auto) 2.8 %; Hematocrit (blood only) 49.9 % (40.1-51.0); Hemoglobin 16.5 g/dl (14.0-18.0); Immature Granulocytes # (auto) 0.04 K/uL (0.00-0.02); Immature Granulocytes % (auto) 0.5 %; Lymphocytes # (auto) 3.34 K/uL (1.2-3.4); Mean Corpuscular Hemoglobin 31.5 pg (25.0-34.0); Mean Corpuscular Hgb Conc 33.1 g/dL (32.0-36.0); Mean Corpuscular Volume 95.4 fL (80.0-100.0); Mean Platelet Volume 9.6 fL (9.4-12.4); Monocytes # (auto) 0.54 K/uL (0.24-0.82); Monocytes % (auto) 6.5 %; Neutrophils # (auto) 4.16 K/uL (1.4-6.5); Neutrophils % (auto) 49.6 %; Platelet Count 267 K/uL (130-400); RDW Coefficient of Variation 14.3 % (11.5-14.5); RDW Standard Deviation 50.2 fL (36.4-46.3); Red Blood Count 5.23 M/uL (4.63-6.08); White Blood Count 8.36 K/ul (4.8-10.8)
[2022-08-27 07:11] LABS: BUN Creatinine Ratio 18.2 (10-20); Calcium 8.9 mg/dl (8.5-10.1); Creatinine Clr Calc Pharmacy 130.5 ml/min; Est GFR (African American) 121.1 ml/min; Est GFR (Non-African American) 104.5 ml/min; Phosphorus 4.3 mg/dl (2.5-4.9)
[2022-08-27] MEDS: CLOPIDOGREL BISULFATE 75 MG TAB PO SCH (08:02)
[2022-08-27] MEDS: ATORVASTATIN 40 MG TAB PO SCH (08:02)
[2022-08-27] MEDS: METOPROLOL TARTRATE 100 MG TAB PO SCH (08:02)
[2022-08-27] MEDS: ASPIRIN 81 MG ECTAB PO SCH (08:03)
--- NOTE | 2022-08-27 11:21 | Cardiology Progress Note ---
Date of Service August 27, 2022 Assessment & Plan (1) Mobitz type 1 second degree AV block: (2) CVA (cerebral vascular accident): (3) CAD (coronary artery disease): (4) Tobacco use: (5) Basilar artery aneurysm: (6) PDA (patent ductus arteriosus): (7) Nocturnal hypoxemia due to obesity: Plan Nocturnal pulse oximetry trend demonstrates hypoxemia. Patient is evidence of second-degree AV block Mobitz type I occurring exclusively during sleep and likely secondary to nocturnal hypoxemia. Consider oxygen supplementation and/or CPAP. Consider pulmonary medicine evaluation for further guidance regarding treatment. Recommend ABG, however, patient refuses further blood draws at this time. Hold metoprol. Continue telemetry monitoring. Consider starting reduced dose metoprolol in a.m. 08/28/2022 pending review of overnight telemetry. Neurology input appreciated. Continue dual antiplatelet therapy. Evidence of possible patent ductus arteriosus per echocardiogram. Findings present on prior studies dating back to 2018. There is no left ventricular chamber enlargement or signs/symptoms of congestive heart failure or endocarditis. Blood cultures ordered for completeness due to the risk of endocarditis associated with PDA. PDA is not typically associated with cerebrovascular accident or TIA. Smoking cessation advised. Continue statin therapy. Admission and Anticipated Discharge Date Admission Date: August 25, 2022 Subjective Called by nursing this morning due to recurrent second-degree AV block, likely Mobitz type I. Patient sleeping and asymptomatic. No associated hypotension. Per nursing, 1 episode occurred prior to metoprolol with subsequent drop QRS complexes after receiving 100mg dose. Patient easily arousable. Denies any symptoms. Speech remains slurred. Nocturnal hypoxia confirmed via pulse oximetry trend. Review of Systems Review of Systems: All systems reviewed & are unremarkable except as noted in Subjective Physical Exam Constitutional: well nourished and + obese; no acute distress Respiratory: no respiratory distress, no labored breathing and no retractions Cardiovascular: Rate/Rhythm: regular rate, regular rhythm and + tachycardic Heart Sounds: normal S1 and normal S2; no murmur Vessels: radial pulses present; no JVD and no carotid bruit Extremities: no edema Gastrointestinal (Abdomen): Inspection/Auscultation: normal bowel sounds; abdomen not distended and no abdominal edema Percussion/Palpation: abdomen soft; abdomen nontender, no guarding and abdomen not rigid Neurologic: Speech / Cognition: + abnormal speech Results & Data ([place]) Vital Signs (Past 12 Hours) Vital Signs Temp Pulse Pulse Pulse Pulse Resp BP 08/27/22 10:54 36.5 C 82 18 08/27/22 10:30 69 08/27/22 07:45 37 C 08/27/22 07:39 35.9 C L 67 16 122/92 08/27/22 03:15 78 08/27/22 03:08 36.2 C L 89 14 08/26/22 23:50 87 88 BP Pulse Ox Pulse Ox Pulse Ox O2 Del Method O2 Del Method O2 Del Method 08/27/22 10:54 146/92 H 92 Room Air 08/27/22 10:30 08/27/22 07:45 08/27/22 07:39 92 Room Air 08/27/22 03:15 91 Nasal Cannula 08/27/22 03:08 150/97 H 91 Room Air 08/26/22 23:50 93 85 L Nasal Cannula Room Air O2 Flow Rate O2 Flow Rate FiO2 08/27/22 10:54 08/27/22 10:30 08/27/22 07:45 08/27/22 07:39 08/27/22 03:15 2 08/27/22 03:08 08/26/22 23:50 2 21 (1) CVA (cerebral vascular accident) CVA mechanism: unspecified Qualified Code(s): I63.9 - Cerebral infarction, unspecified
--- NOTE | 2022-08-27 16:27 | Hospitalist Progress Note ---
Date of Service August 27, 2022 Assessment & Plan (1) CVA (cerebral vascular accident): (2) Basilar artery aneurysm: Plan: Patient is a 42-year-old male with PMH HTN, COPD, tobacco use, CAD, CVA, dolichoectasia of basilar artery aneurysm presented to ER with complaint of slurred speech that started yesterday afternoon. Med non-compliance In ER afebrile, initial BP: 158/102 CT Head: 1. No acute intracranial abnormality. 2. Chronic right cerebellar infarct. 3. 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 There is no evidence of aneurysm rupture on today's study. CTA Head and Neck: 1. 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 There is no evidence of aneurysm rupture on today's study. 2. Mild atherosclerosis without dissection, high-grade stenosis or arterial occlusion identified. 3. Mild nonspecific cervical chain lymphadenopathy. ER physician spoke to Dr Sánchez [facility] [place] who stated no surgical procedure. Also spoke to swimming pool salesperson neurologist - Dr Loving who recommended MRI brain and aspirin 81 and plavix 75mg daily MRI brain obtained 1. Subcentimeter acute to subacute appearing infarct of the left cerebral peduncle. 2. Dolichoectasia with fusiform aneurysmal dilation of the basilar artery re- demonstrated, better characterized on the CTA head and neck study of same day. 3. Chronic right cerebellar infarct. Lipid panel, A1c 6.3% Echo with bubble study - no significant change from study from October 2017. EF 60 to 65%. There is moderate concentric LVH. Aortic valve sclerosis mild, without significant aortic valvular stenosis. Injection of contrast documented no interatrial shunt. There is flow by color Doppler in the pulmonary artery which is concerning for patent ductus arteriosus. Aspiration precautions PT/OT consult Patient is to be on aspirin and Plavix however noncompliant. Restart aspirin, Plavix Neurology consulted - cont. ASA, plavix, lipitor 80 daily, hypercoag. work-up, SHANNON study - outpt Holter - follow up w/ neurology - pt wants to follow up w/ [facility] neurology 3.2 sec pause noted on telemetry ECG on admission - LAFB -Cardiology consulted - seems to be associated w/ sleep/ nocturnal hypoxia - likely second degree AV block Mobitz I -re-started metoprolol -nocturnal hypoxia study obtained and positive for hypoxia - plan to DC on home O2 and plan for outpt sleep study - also TSH ordered, and given PDA, blood cultx obtained - cont. to monitor on tele (3) HTN (hypertension): Plan: Noncompliant home medications. Was to be on amlodipine 10mg daily, metoprolol tartrate 100mg BID. Lasix 20mg daily prn LE edema Restarted metoprolol - cardiology managing Monitor BP and consider restarting amlodipine if needed (4) Dyslipidemia: Plan: atorvastatin 80 mg - per neurology recs (5) CAD (coronary artery disease): Plan: Denies CP, SOB. EKG sinus rhythm, LAFB, poor R wave progression Cardiology following, as above (6) COPD (chronic obstructive pulmonary disease): Plan: Not on inhalers No signs of exacerbation currently Monitor (7) Tobacco use: Plan: 2-3ppd x 30 years Smoking cessation encouraged. Patient states he has no intent of quitting at this time Denies nicotine patch DVT Prophylaxis SCDs Patient's sister Jaja Carlton would look like update. Cell phone number: [phone] DNR/DNI as per discussion with pt and pt's sister Follows with Esteban Underwood PA-C for routine care Admission and Anticipated Discharge Date Admission Date: August 25, 2022 Subjective Pt seen in follow up of CVA (admitted yesterday) Currently patient is sitting up in chair, in no acute distress His speech is quite garbled, occasionally needs to write things down for me to understand him Reportedly his speech was somewhat garbled after first stroke, however now it is worsened Overall though, patient feels well Denies any chest pain or shortness of breath, denies any weakness in his arms or legs No abdominal pain nausea vomiting Nocturnal hypoxia study shows hypoxia. Cardiology following. Review of Systems Review of Systems: All systems reviewed & are unremarkable except as noted in Subjective Physical Exam Physical Exam: General: +obese M, no distress Head: normocephalic, atraumatic Eyes: PERRL, EOM's intact, conjunctiva non-injected, anicteric ENT: normal inspection external ears, nose, mucous membranes moist Neck: supple Lungs: clear, no respiratory distress, no wheezing/rhonchi/rales CV: RRR, no murmur, trace pretibial edema Abd: normal BS, soft, non-tender Ext: no calf tenderness Neuro: A&O x 3, +slurred speech, moves extremities , strength 5/5 Skin: warm, dry Results & Data Results [facility] Vital Signs (Past 12 Hours) Vital Signs Temp Pulse Pulse Resp BP BP Pulse Ox 08/27/22 15:46 36.4 C L 80 18 151/103 H 93 08/27/22 10:54 36.5 C 82 18 146/92 H 92 08/27/22 10:30 69 08/27/22 07:45 37 C 08/27/22 07:39 35.9 C L 67 16 122/92 92 O2 Del Method 08/27/22 15:46 Room Air 08/27/22 10:54 Room Air 08/27/22 10:30 08/27/22 07:45 08/27/22 07:39 Room Air Laboratory Results 08/27/22 08/27/22 08/27/22 Range/Units 06:19 06:19 06:19 WBC 8.36 (4.8-10.8) K/ul RBC 5.23 (4.63-6.08) M/uL Hgb 16.5 (14.0-18.0) g/dl Hct 49.9 (40.1-51.0) % MCV 95.4 (80.0-100.0) fL MCH 31.5 (25.0-34.0) pg MCHC 33.1 (32.0-36.0) g/dL RDW Std Deviation 50.2 H (36.4-46.3) fL RDW Coeff of Krupa 14.3 (11.5-14.5) % Plt Count 267 (130-400) K/uL MPV 9.6 (9.4-12.4) fL Immature Gran % (Auto) 0.5 % Neut % (Auto) 49.6 % Lymph % (Auto) 40.0 % Titus % (Auto) 6.5 % Eos % (Auto) 2.8 % Baso % (Auto) 0.6 % Neut # (Auto) 4.16 (1.4-6.5) K/uL Lymph # (Auto) 3.34 (1.2-3.4) K/uL Titus # (Auto) 0.54 (0.24-0.82) K/uL Eos # (Auto) 0.23 (0-0.50) K/uL Baso # (Auto) 0.05 (0-0.2) K/uL Immature Gran # (Auto) 0.04 H (0.00-0.02) K/uL LA PTT Screen Protein C Activity Protein S Activity Antithrombin III Activ Factor V Leiden Mutat Factor V Leiden Interp Sodium 138 (136-145) mmol/L Potassium 4.0 (3.5-5.1) mmol/L Chloride 102 (98-107) mmol/L Carbon Dioxide 31 (21-32) mmol/L Anion Gap 5 (3-11) BUN 16 (6-23) mg/dl Creatinine 0.88 (0.6-1.4) mg/dl Est Cr Clr Drug Dosing 130.5 ml/min Est GFR ( Amer) 121.1 ml/min Est GFR (Non-Af Amer) 104.5 ml/min BUN/Creatinine Ratio 18.2 (10-20) Glucose 103 H (70-99(Fasting)) mg/dl Calcium 8.9 (8.5-10.1) mg/dl Phosphorus 4.3 (2.5-4.9) mg/dl Magnesium 2.0 (1.7-2.4) mg/dl Homocysteine TSH 1.545 (0.300-4.500) uIu/ml Beta-2-GPI IgG Ab Beta-2-GPI IgM Ab Anti-Cardiolipin IgG Ab Anti-Cardiolipin IgM Ab Bld Cult ID Panel PCR Prothrombin Gene Mutate Prothromb Gene Comment 08/26/22 08/26/22 08/26/22 Range/Units 15:49 15:49 15:49 WBC (4.8-10.8) K/ul RBC (4.63-6.08) M/uL Hgb (14.0-18.0) g/dl Hct (40.1-51.0) % MCV (80.0-100.0) fL MCH (25.0-34.0) pg MCHC (32.0-36.0) g/dL RDW Std Deviation (36.4-46.3) fL RDW Coeff of Krupa (11.5-14.5) % Plt Count (130-400) K/uL MPV (9.4-12.4) fL Immature Gran % (Auto) % Neut % (Auto) % Lymph % (Auto) % Titus % (Auto) % Eos % (Auto) % Baso % (Auto) % Neut # (Auto) (1.4-6.5) K/uL Lymph # (Auto) (1.2-3.4) K/uL Titus # (Auto) (0.24-0.82) K/uL Eos # (Auto) (0-0.50) K/uL Baso # (Auto) (0-0.2) K/uL Immature Gran # (Auto) (0.00-0.02) K/uL LA PTT Screen Protein C Activity Protein S Activity Pending Antithrombin III Activ Factor V Leiden Mutat Pending Factor V Leiden Interp Pending Sodium (136-145) mmol/L Potassium (3.5-5.1) mmol/L Chloride (98-107) mmol/L Carbon Dioxide (21-32) mmol/L Anion Gap (3-11) BUN (6-23) mg/dl Creatinine (0.6-1.4) mg/dl Est Cr Clr Drug Dosing ml/min Est GFR ( Amer) ml/min Est GFR (Non-Af Amer) ml/min BUN/Creatinine Ratio (10-20) Glucose (70-99(Fasting)) mg/dl Calcium (8.5-10.1) mg/dl Phosphorus (2.5-4.9) mg/dl Magnesium (1.7-2.4) mg/dl Homocysteine Pending TSH (0.300-4.500) uIu/ml Beta-2-GPI IgG Ab Pending Beta-2-GPI IgM Ab Pending Anti-Cardiolipin IgG Ab Anti-Cardiolipin IgM Ab Bld Cult ID Panel PCR Prothrombin Gene Mutate Pending Prothromb Gene Comment Pending 08/26/22 08/26/22 Range/Units 15:49 13:43 WBC (4.8-10.8) K/ul RBC (4.63-6.08) M/uL Hgb (14.0-18.0) g/dl Hct (40.1-51.0) % MCV (80.0-100.0) fL MCH (25.0-34.0) pg MCHC (32.0-36.0) g/dL RDW Std Deviation (36.4-46.3) fL RDW Coeff of Krupa (11.5-14.5) % Plt Count (130-400) K/uL MPV (9.4-12.4) fL Immature Gran % (Auto) % Neut % (Auto) % Lymph % (Auto) % Titus % (Auto) % Eos % (Auto) % Baso % (Auto) % Neut # (Auto) (1.4-6.5) K/uL Lymph # (Auto) (1.2-3.4) K/uL Titus # (Auto) (0.24-0.82) K/uL Eos # (Auto) (0-0.50) K/uL Baso # (Auto) (0-0.2) K/uL Immature Gran # (Auto) (0.00-0.02) K/uL LA PTT Screen Pending Protein C Activity Pending Protein S Activity Antithrombin III Activ Pending Factor V Leiden Mutat Factor V Leiden Interp Sodium (136-145) mmol/L Potassium (3.5-5.1) mmol/L Chloride (98-107) mmol/L Carbon Dioxide (21-32) mmol/L Anion Gap (3-11) BUN (6-23) mg/dl Creatinine (0.6-1.4) mg/dl Est Cr Clr Drug Dosing ml/min Est GFR ( Amer) ml/min Est GFR (Non-Af Amer) ml/min BUN/Creatinine Ratio (10-20) Glucose (70-99(Fasting)) mg/dl Calcium (8.5-10.1) mg/dl Phosphorus (2.5-4.9) mg/dl Magnesium (1.7-2.4) mg/dl Homocysteine TSH (0.300-4.500) uIu/ml Beta-2-GPI IgG Ab Beta-2-GPI IgM Ab Anti-Cardiolipin IgG Ab Pending Anti-Cardiolipin IgM Ab Pending Bld Cult ID Panel PCR Pending Prothrombin Gene Mutate Prothromb Gene Comment Medications Administered Current Inpatient Medications Acetaminophen (Acetaminophen 325 Mg Tab) 650 mg PO Q4H PRN PRN Reason: Pain or Fever Stop: 09/24/22 20:09 Aspirin (Aspirin 81 Mg Ectab) 81 mg PO DAILY [facility] Stop: 09/25/22 08:59 Last Admin: 08/27/22 08:03 Dose: 81 mg Atorvastatin Calcium ([facility] 40 Mg Tab) [facility] [place]: 09/26/22 08:59 Last Admin: 08/27/22 08:02 Dose: 80 mg Clopidogrel Bisulfate (Clopidogrel Bisulfate 75 Mg Tab) 75 [facility] [place]: 09/25/22 08:59 Last Admin: 08/27/22 08:02 Dose: 75 mg Labetalol HCl (Labetalol Hcl Iv 5 Mg/Ml 20ml) 5 mg IV Q4H PRN PRN Reason: hypertension Stop: 09/24/22 18:22 Miscellaneous Information (Pharmacist Discharge Med Rec Consult) 1 each N/A UD PRN PRN Reason: Consult Stop: 09/24/22 20:09 Ondansetron HCl (Ondansetron Inj 2 Mg/Ml 2 Ml Vial) 4 mg IV Q6H PRN PRN Reason: Nausea Stop: 09/24/22 20:09 Polyethylene Glycol (Polyethylene (Miralax) 17 Gm Pack) 17 gm PO DAILY PRN PRN Reason: Constipation Stop: 09/24/22 20:09 (1) CVA (cerebral vascular accident) CVA mechanism: unspecified Qualified Code(s): I63.9 - Cerebral infarction, unspecified
[2022-08-27 17:13] LABS: A calco-baum cmplx NotReported Not Detected (NotDetected); Bact fragilis Not Reported Not Detected (NotDetected); C auris Not Reported Not Detected (NotDetected); Calbicans Not Reported Not Detected (NotDetected); Candida glabrata Not Reported Not Detected (NotDetected); Candida krusei Not Reported Not Detected (NotDetected); Cneoformans/gatti Not Reported Not Detected (NotDetected); Cparapsilosis Not Reported Not Detected (NotDetected); Ctropicalis Not Reported Not Detected (NotDetected); E cloacae compx Not Reported Not Detected (NotDetected); Efaecalis Not Reported Not Detected (NotDetected); Efaecium Not Reported Not Detected (NotDetected); Enterobacterales Not Reported Not Detected (NotDetected); Escherichia coli Not Reported Not Detected (NotDetected); H influenzae Not Reported Not Detected (NotDetected); K aerogenes Not Reported Not Detected (NotDetected); Koxytoca Not Reported Not Detected (NotDetected); Kpneumoniae grp Not Reported Not Detected (NotDetected); Lmonocyt Not Reported Not Detected (NotDetected); N meningitidis Not Reported Not Detected (NotDetected); P aeruginosa Not Reported Not Detected (NotDetected); Proteus spp Not Reported Not Detected (NotDetected); Salmonella spp Not Reported Not Detected (NotDetected); Smarcescens Not Reported Not Detected (NotDetected); Staph lugdunensis Not Reported Not Detected (NotDetected); Staph spp. Not Reported Not Detected (NotDetected); Staphaureus Not Reported Not Detected (NotDetected); Staphepi Not Reported Not Detected (NotDetected); Stenmaltophilia Not Reported Not Detected (NotDetected); Strep agal(GrpB) Not Reported Not Detected (NotDetected); Strep pneum Not Reported Not Detected (NotDetected); Strep pyog (GrpA) Not Reported Not Detected (NotDetected); Strep spp Not Reported DETECTED (NotDetected)
[2022-08-27 17:16] LABS: Streptococcus spp DETECTED (NotDetected)
--- NOTE | 2022-08-27 17:24 | Neurology Progress Note ---
Date of Service August 27, 2022 Assessment & Plan (1) CVA (cerebral vascular accident): Plan: Impression: The patient had acute dysarthria and ataxia on 08/24, and presented emergency department next day. He was not a candidate for thrombolytic treatment because of being outside of treatment window. Brain MRI showed left cerebral peduncle acute ischemic stroke. The patient has history of a right cerebellar ischemic stroke 4 years ago. He has been noncompliant to treatment including antiplatelets. He has multiple stroke risk factors including tobacco use, hyperlipidemia, hypertension, prior stroke, basilar artery dolichoectasia with aneurysmal dilatation, obesity, probable obstructive sleep apnea, and sedentary lifestyle. The likely mechanism of stroke is basilar artery dolichoectasia and related intra-arterial hemodynamic abnormality, which might induce thrombus formation. Some clinical improvement since the admission. Recommendations: The patient should stay on daily aspirin 81 mg and Plavix 75 mg for secondary stroke prevention. Continue on Lipitor 80 mg at bedtime. Goal LDL level is lower than 70. Modification of diet is strongly recommended. Cessation of smoking and compliance on treatment is strongly recommended. Management of hypertension. Goal blood pressure is below 130/80. Outpatient work-up to investigate for obstructive sleep apnea, which is one of stroke risk factor. We should keep blood sugar within normal range. Hemoglobin A1c showed elevation. Outpatient follow-up with primary care physician to monitor blood sugar. Hypercoagulable state work-up.--pending results Outpatient physical therapy. Consider outpatient Holter monitoring to rule out paroxysmal atrial fibrillation, which seems to be less likely based on current cardiac evaluation. Follow-up with neurology. I have contacted [facility] neurology to set up a follow-up appointment. If the patient wants he might be followed by prior neurologist from another [facility] as before. If the patient stays stable, he can be discharged home in next 24 to 48 hours. (2) HTN (hypertension): Plan: Impression: The patient has history of hypertension on treatment, however, he has not been very compliant. Recommendations: As seen above. (3) Dyslipidemia: Plan: Impression: Lipid panel showed significantly elevated triglycerides and total cholesterol. Recommendations: As seen above. (4) Basilar artery aneurysm: Plan: Impression: The patient has established diagnosis of basilar artery dolichoectasia with aneurysmal dilatation. He has been on double antiplatelet treatment, however, his compliance has been very poor. The patient was not considered a candidate for vascular intervention per neurosurgery. Recommendations: Double antiplatelet treatment and Lipitor. Follow-up with neurosurgery. (5) Tobacco use: Plan: Impression: The patient has been smoker for over 30 years. He used to smoke 2 to 3 packs/day, but currently smokes health pack per day as he reported. Recommendations: Importance of cessation of smoking is explained to the patient. (6) Mobitz type 1 second degree AV block: Plan: Impression: The patient has been followed by cardiology. (7) PDA (patent ductus arteriosus): Plan: Impression: Echocardiogram showed patent ductus arteriosus, as seen before. This was not considered a risk factor for cardioembolic event. Blood cultures were ordered to rule out infections. Admission and Anticipated Discharge Date Admission Date: August 25, 2022 Subjective The patient has been neurologically stable with persistent dysarthria, however, speech is more understandable. Still has slight ataxia but able to walk independently. Nocturnal hypoxia is suggestive of SHANNON. Mobitz 2 AVB is reported. No new neurological sxs. Review of Systems Review of Systems: All systems reviewed & are unremarkable except as noted in Subjective Physical Exam Physical Exam: General Examination: Constitutional: Well developed overweight person in no acute distress. HEENT: Normal exam with inspection. CV: Hearth rhythm is regular with PVCs. Neck: Supple, no carotid bruits. Lungs: Non-labored and comfortable breathing. Abdomen: Soft, non-tender, non-distended. Skin: No rash or ecchymosis. Extremities: No edema or cyanosis NEUROLOGICAL EXAMINATION: Mental Status: Alert and oriented to place, person and time. Cranial Nerves: II-XII are intact. No nystagmus. Funduscopy: Normal looking optic discs. Motor: 5/5 in all extremities without asymmetry. DTRs: 1+ all. No Babinski. Tone: Normal without spasticity or rigidity. Sensory: Intact to all sensory modalities. Coordination: Slight dysmetria with left FTN and HTS testing. Speech: Dysarthric, comprehension is intact. Gait: Ataxic but able to walk independently. Musculoskeletal: Normal muscle bulk, no atrophy. Results & Data ([facility]) Vital Signs (Past 12 Hours) Vital Signs Temp Pulse Pulse Resp BP BP Pulse Ox 08/27/22 15:46 36.4 C L 80 18 151/103 H 93 08/27/22 10:54 36.5 C 82 18 146/92 H 92 08/27/22 10:30 69 08/27/22 07:45 37 C 08/27/22 07:39 35.9 C L 67 16 122/92 92 O2 Del Method 08/27/22 15:46 Room Air 08/27/22 10:54 Room Air 08/27/22 10:30 08/27/22 07:45 08/27/22 07:39 Room Air Laboratory Results Laboratory Results - last 24 hr 08/26/22 08/27/22 08/27/22 13:43 06:19 06:19 WBC 8.36 RBC 5.23 Hgb 16.5 Hct 49.9 MCV 95.4 MCH 31.5 MCHC 33.1 RDW Std Deviation 50.2 H RDW Coeff of Krupa 14.3 Plt Count 267 MPV 9.6 Immature Gran % (Auto) 0.5 Neut % (Auto) 49.6 Lymph % (Auto) 40.0 [place] % (Auto) 6.5 Eos % (Auto) 2.8 Baso % (Auto) 0.6 Neut # (Auto) 4.16 Lymph # (Auto) 3.34 [place] # (Auto) 0.54 Eos # (Auto) 0.23 Baso # (Auto) 0.05 Immature Gran # (Auto) 0.04 H Sodium 138 Potassium 4.0 Chloride 102 Carbon Dioxide 31 Anion Gap 5 BUN 16 Creatinine 0.88 Est Cr Clr Drug Dosing 130.5 Est GFR ( Amer) 121.1 Est GFR (Non-Af Amer) 104.5 BUN/Creatinine Ratio 18.2 Glucose 103 H Calcium 8.9 Phosphorus 4.3 Magnesium 2.0 TSH Streptococcus sp PCR DETECTED A Bld Cult ID Panel PCR See PCR Comment 08/27/22 06:19 WBC RBC Hgb Hct MCV MCH MCHC RDW Std Deviation RDW Coeff of Krupa Plt Count MPV Immature Gran % (Auto) Neut % (Auto) Lymph % (Auto) [place] % (Auto) Eos % (Auto) Baso % (Auto) Neut # (Auto) Lymph # (Auto) [place] # (Auto) Eos # (Auto) Baso # (Auto) Immature Gran # (Auto) Sodium Potassium Chloride Carbon Dioxide Anion Gap BUN Creatinine Est Cr Clr Drug Dosing Est GFR ( Amer) Est GFR (Non-Af Amer) BUN/Creatinine Ratio Glucose Calcium Phosphorus Magnesium TSH 1.545 Streptococcus sp PCR Bld Cult ID Panel PCR Diagnostic Findings Chest X-Ray 08/25/22 14:35 XR chest 1V portable CLINICAL HISTORY: stroke alert TECHNIQUE: Single frontal radiograph of the chest was obtained. Comparison: Comparison is made to chest radiograph 11/25/2018 FINDINGS: No lines and tubes are seen. Cardiomegaly is noted. Prominence and cephalization of the vasculature is seen. No evidence of pleural effusion or pneumothorax. IMPRESSION: Cardiomegaly and mild pulmonary edema. ACT 112: Negative or not required by law. Electronically signed by: Ad Delgado M.D. 08/25/2022 3:[address] 08/25/22 14:35 CT head/brain wo con CLINICAL HISTORY: 42 years-old Male with Stroke Alert. Acute dizziness with strokelike symptoms TECHNIQUE: Multiple axial CT images of the head were obtained without contrast. A dose lowering technique was utilized adhering to the principles of ALARA. CT DOSE: 1311.06 mGy.cm COMPARISON: MRA of the head 11/25/2018, brain MRI 11/25/2018. FINDINGS: No acute intracranial hemorrhage, midline shift, intracranial mass, hydrocephalus, territorial ischemia or abnormal extra-axial collection. Dolichoectasia with aneurysmal dilation of the basilar artery is redemonstrated. The peripherally calcified basilar artery at the level of the dotty measures 2.3 x 1.9 cm, previously 1.5 x 1.5 cm when measured in a similar fashion. This causes moderate mass effect upon the ventral aspect of the pontine brainstem. The distal basilar artery just proximal to the bifurcation measures up to 9 mm transversely, previously 6 mm. No evidence of aneurysm rupture. Chronic intramural thrombus versus atheromatous plaque is again noted within the basilar artery. Additional cerebral vascular calcifications of the carotid and middle cerebral arteries. Chronic right cerebellar infarct. The calvarium is intact. The paranasal sinuses, mastoid air cells, and middle ear cavities are clear. IMPRESSION: 1. No acute intracranial abnormality. 2. Chronic right cerebellar infarct. 3. 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 There is no evidence of aneurysm rupture on today's study. ACT 112: Negative or not required by law. The above report was generated using voice recognition software. It may contain grammatical, syntax or spelling errors. Electronically signed by: Arthur Braden M.D. 08/25/2022 3:39 PM Head CTA 08/25/22 15:36 CT angio neck with con, CT angio head w con CLINICAL HISTORY: 42 years-old Male with slurred speech, h/o R cereb CVA and bas aneurysm. Acute strokelike symptoms COMPARISON STUDY: Head CT of same day, brain MRI and MRA brain 11/25/2018, CTA neck 10/16/2017 TECHNIQUE: Following the IV administration of 121 of Optiray, CT angiogram of the head and neck was performed from the aortic arch to the skull apex. Images are reviewed in the axial, sagittal, and coronal planes. 3-D MIPS images are created and assessed. IV contrast was administered without complication. All measurements were calculated based on NASCET criteria. A dose lowering technique was utilized adhering to the principles of ALARA. CT DOSE: 644.48 mGy.cm FINDINGS: Four-vessel morphology of the thoracic aortic arch. Patency of the innominate and imaged subclavian arteries. The common and internal carotid arteries are widely patent. There is mild atherosclerotic plaque of the left carotid bulb and proximal left ICA resulting in less than 50% stenosis. Fusiform dilation of the left carotid terminus measures up to 7 mm, previously measured at 6 mm. The anterior and middle cerebral arteries are widely patent. Mild atherosclerotic plaque without central stenosis of the bilateral vertebral arteries. Dolichoectasia with aneurysmal dilation of the basilar artery is redemonstrated. The peripherally calcified basilar artery at the level of the dotty measures 2.2 x 1.9 cm, previously 1.5 x 1.5 cm when measured in a similar fashion. This causes moderate mass effect upon the ventral aspect of the pontine brainstem. The distal basilar artery just proximal to the bifurcation measures up to 9 mm transversely, previously 6 mm. No evidence of aneurysm rupture. Chronic intramural thrombus/atheromatous plaque is again noted within the basilar artery. Chronic right cerebellar infarct. No abnormal intracranial enhancement. Lung apices are clear. No pneumothorax. Nonspecific cervical chain lymphadenopathy measures up to 1.5 cm on the left. No acute fracture. Degenerative changes of the cervical spine with mild kyphotic curvature. IMPRESSION: 1. 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 There is no evidence of aneurysm rupture on today's study. 2. Mild atherosclerosis without dissection, high-grade stenosis or arterial occlusion identified. 3. Mild nonspecific cervical chain lymphadenopathy. ACT 112: Negative or not required by law. The above report was generated using voice recognition software. It may contain grammatical, syntax or spelling errors. Electronically signed by: Arthur Braden M.D. 08/25/2022 4:31 PM Neck CTA 08/25/22 15:36 CT angio neck with con, CT angio head w con CLINICAL HISTORY: 42 years-old Male with slurred speech, h/o R cereb CVA and bas aneurysm. Acute strokelike symptoms COMPARISON STUDY: Head CT of same day, brain MRI and MRA brain 11/25/2018, CTA neck 10/16/2017 TECHNIQUE: Following the IV administration of 121 of Optiray, CT angiogram of the head and neck was performed from the aortic arch to the skull apex. Images are reviewed in the axial, sagittal, and coronal planes. 3-D MIPS images are created and assessed. IV contrast was administered without complication. All measurements were calculated based on NASCET criteria. A dose lowering technique was utilized adhering to the principles of ALARA. CT DOSE: 644.48 mGy.cm FINDINGS: Four-vessel morphology of the thoracic aortic arch. Patency of the innominate and imaged subclavian arteries. The common and internal carotid arteries are widely patent. There is mild atherosclerotic plaque of the left carotid bulb and proximal left ICA resulting in less than 50% stenosis. Fusiform dilation of the left carotid terminus measures up to 7 mm, previously measured at 6 mm. The anterior and middle cerebral arteries are widely patent. Mild atherosclerotic plaque without central stenosis of the bilateral vertebral arteries. Dolichoectasia with aneurysmal dilation of the basilar artery is redemonstrated. The peripherally calcified basilar artery at the level of the dotty measures 2.2 x 1.9 cm, previously 1.5 x 1.5 cm when measured in a similar fashion. This causes moderate mass effect upon the ventral aspect of the pontine brainstem. The distal basilar artery just proximal to the bifurcation measures up to 9 mm transversely, previously 6 mm. No evidence of aneurysm rupture. Chronic intramural thrombus/atheromatous plaque is again noted within the basilar artery. Chronic right cerebellar infarct. No abnormal intracranial enhancement. Lung apices are clear. No pneumothorax. Nonspecific cervical chain lymphadenopathy measures up to 1.5 cm on the left. No acute fracture. Degenerative changes of the cervical spine with mild kyphotic curvature. IMPRESSION: 1. 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 There is no evidence of aneurysm rupture on today's study. 2. Mild atherosclerosis without dissection, high-grade stenosis or arterial occlusion identified. 3. Mild nonspecific cervical chain lymphadenopathy. ACT 112: Negative or not required by law. The above report was generated using voice recognition software. It may contain grammatical, syntax or spelling errors. Electronically signed by: Arthur Braden M.D. 08/25/2022 4:31 PM Brain MRI 08/25/22 17:07 MR brain wo con HISTORY: 42 years-old Male stroke symptoms acute strokelike symptoms COMPARISON: CTA had and neck of same day, brain MRI 11/25/2018 TECHNIQUE: Multiplanar multisequence MRI the brain was obtained without the use of IV contrast FINDINGS: Chronic right cerebellar infarct. Dolichoectasia with aneurysmal dilation of the basilar artery redemonstrated with associated chronic intramural throm bus/atheromatous plaque. There is increased mass effect upon the cerebral peduncles and dotty compared to the 2019 exam. The midline structures appear unremarkable otherwise. Study is mildly motion degraded. No evidence of acute or subacute territorial infarct. There is an 8 mm area of restricted diffusion with decreased signal on the ADC map involving the left cerebral peduncle, image 9 of the axial series. No acute intracranial hemorrhage, midline shift, abnormal extra-axial collection, hydrocephalus or intracranial mass. Cerebral venous sinuses and major arterial flow voids are otherwise u nremarkable. Skull, orbits and soft tissues are unremarkable. Mastoid air cells and paranasal sinuses are clear. IMPRESSION: 1. Subcentimeter acute to subacute appearing infarct of the left cerebral peduncle. 2. Dolichoectasia with fusiform aneurysmal dilation of the basilar artery redemonstrated, better characterized on the CTA head and neck study of same day. 3. Chronic right cerebellar infarct. ACT 112: Negative or not required by law. The above report was generated using voice recognition software. It may contain grammatical, syntax or spelling errors. Electronically signed by: Arthur Braden M.D. 08/25/2022 6:04 PM (1) CVA (cerebral vascular accident) CVA mechanism: unspecified Qualified Code(s): I63.9 - Cerebral infarction, unspecified
[2022-08-27] MEDS ORDERED: VANCOMYCIN CONSULT ACTIVE PRN (17:32)
[2022-08-27] MEDS ORDERED: VANCOMYCIN HCL 1,000 MG in SODIUM CHLORIDE 0.9% 250 ML IV STA (17:32)
[2022-08-27] MEDS ORDERED: VANCOMYCIN HCL 2,250 MG in SODIUM CHLORIDE 0.9% 500 ML IV SCH (18:00)
[2022-08-28] MEDS: VANCOMYCIN HCL 1,250 MG in SODIUM CHLORIDE 0.9% 250 ML IV SCH ×2 (05:41→18:01)
[2022-08-28 07:36] LABS: Hematocrit (blood only) 49.8 % (40.1-51.0); Hemoglobin 16.7 g/dl (14.0-18.0); Mean Corpuscular Hemoglobin 31.7 pg (25.0-34.0); Mean Corpuscular Hgb Conc 33.5 g/dL (32.0-36.0); Mean Corpuscular Volume 94.7 fL (80.0-100.0); Mean Platelet Volume 9.8 fL (9.4-12.4); Platelet Count 239 K/uL (130-400); RDW Coefficient of Variation 14.4 % (11.5-14.5); RDW Standard Deviation 49.7 fL (36.4-46.3); Red Blood Count 5.26 M/uL (4.63-6.08); White Blood Count 9.34 K/ul (4.8-10.8)
[2022-08-28] MEDS: CLOPIDOGREL BISULFATE 75 MG TAB PO SCH (07:39)
[2022-08-28] MEDS: ATORVASTATIN 40 MG TAB PO SCH (07:39)
[2022-08-28] MEDS: ASPIRIN 81 MG ECTAB PO SCH (07:39)
[2022-08-28 07:55] LABS: BUN Creatinine Ratio 13.6 (10-20); Creatinine Clr Calc Pharmacy 131.7 ml/min; Est GFR (African American) 121.1 ml/min; Est GFR (Non-African American) 104.5 ml/min; Magnesium 1.9 mg/dl (1.7-2.4); Phosphorus 3.7 mg/dl (2.5-4.9); Potassium 4.1 mmol/L (3.5-5.1)
--- NOTE | 2022-08-28 08:19 | Hospitalist Progress Note ---
Date of Service August 28, 2022 Assessment & Plan (1) CVA (cerebral vascular accident): (2) Basilar artery aneurysm: Plan: Patient is a 42-year-old male with PMH HTN, COPD, tobacco use, CAD, CVA, dolichoectasia of basilar artery aneurysm presented to ER with complaint of slurred speech that started yesterday afternoon. Med non-compliance In ER afebrile, initial BP: 158/102 CT Head: 1. No acute intracranial abnormality. 2. Chronic right cerebellar infarct. 3. 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 There is no evidence of aneurysm rupture on today's study. CTA Head and Neck: 1. 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 There is no evidence of aneurysm rupture on today's study. 2. Mild atherosclerosis without dissection, high-grade stenosis or arterial occlusion identified. 3. Mild nonspecific cervical chain lymphadenopathy. ER physician spoke to Dr Sánchez [facility] neurosurgery who stated no surgical procedure. Also spoke to service control operator neurologist - Dr Loving who recommended MRI brain and aspirin 81 and plavix 75mg daily MRI brain obtained 1.Subcentimeter acute to subacute appearing infarct of the left cerebral peduncle. 2. Dolichoectasia with fusiform aneurysmal dilation of the basilar artery re- demonstrated, better characterized on the CTA head and neck study of same day. 3. Chronic right cerebellar infarct. Lipid panel, A1c 6.3% Echo with bubble study - no significant change from study from October 2017. EF 60 to 65%. There is moderate concentric LVH. Aortic valve sclerosis mild, without significant aortic valvular stenosis. Injection of contrast documented no interatrial shunt. There is flow by color Doppler in the pulmonary artery which is concerning forpatent ductus arteriosus. Aspiration precautions PT/OT consult Patient is to be on aspirin and Plavix however noncompliant.Restart aspirin, Plavix Neurology consulted -cont. ASA, plavix, lipitor 80 daily, hypercoag. work-up ordered- follow results, SHANNON study as outpt - outpt Holter - follow up w/ neurology - pt wants to follow up w/ [facility] 3.2 sec pause noted on telemetry ECG on admission - LAFB -Cardiology consulted - seems to be associated w/ sleep/ nocturnal hypoxia - likely second degree AV block Mobitz I -re-started metoprolol -nocturnal hypoxia study obtained and positive for hypoxia - plan to DC on home O2 and plan for outpt sleep study - also TSH ordered, and given PDA, blood cultx obtained - 1 posit. blood cultx - alpha strep likely contaminant - cont. to monitor on tele (3) HTN (hypertension): Plan: Noncompliant home medications. Was to be on amlodipine 10mg daily, metoprolol tartrate 100mg BID. Lasix 20mg daily prn LE edema Restarted metoprolol - cardiology managing Monitor BP and consider restarting amlodipine if needed 08/28 - pt started on small dose carvedilol instead of metoprolol (4) Dyslipidemia: Plan: atorvastatin 80 mg - per neurology recs (5) CAD (coronary artery disease): Plan: Denies CP, SOB. EKG sinus rhythm, LAFB, poor R wave progression Cardiology following, as above (6) COPD (chronic obstructive pulmonary disease): Plan: Not on inhalers No signs of exacerbation currently Monitor (7) Tobacco use: Plan: 2-3ppd x 30 years Smoking cessation encouraged. Denies nicotine patch DVT Prophylaxis SCDs Patient's sister Jaja Carlton - Cell phone number: [phone] DNR/DNI a Follows with Esteban Underwood PA-C for routine care Admission and Anticipated Discharge Date Admission Date: August 25, 2022 Subjective Pt seen in follow up of CVA Currently patient is sitting up in chair, in no acute distress His speech is quite garbled, occasionally needs to write things down for me to understand him Reportedly his speech was somewhat garbled after first stroke, however now it is worsened Overall though, patient feels well Denies any chest pain or shortness of breath, denies any weakness in his arms or legs No abdominal pain nausea vomiting Nocturnal hypoxia study showed hypoxia. Cardiology following. Review of Systems Review of Systems: All systems reviewed & are unremarkable except as noted in Subjective Physical Exam Physical Exam: General: +obese M, no distress Head: normocephalic, atraumatic Eyes: PERRL, EOM's intact, conjunctiva non-injected, anicteric ENT: normal inspection external ears, nose, mucous membranes moist Neck: supple Lungs: clear, no respiratory distress, no wheezing/rhonchi/rales CV: RRR, no murmur, trace pretibial edema Abd: normal BS, soft, non-tender Ext: no calf tenderness Neuro: A&O x 3, +slurred speech, moves extremities , strength 5/5 Skin: warm, dry Results & Data Results & Data ([facility]) Vital Signs (Past 12 Hours) Vital Signs Temp Pulse Pulse Resp BP Pulse Ox O2 Del Method 08/28/22 06:38 36.4 C L 70 18 145/97 H 90 Room Air 08/28/22 03:12 36.4 C L 72 18 157/85 H 91 Room Air 08/27/22 23:17 36.7 C 81 18 161/99 H 93 Room Air 08/27/22 23:13 90 Laboratory Results 08/28/22 08/28/22 08/26/22 Range/Units 07:02 07:02 13:43 WBC 9.34 (4.8-10.8) K/ul RBC 5.26 (4.63-6.08) M/uL Hgb 16.7 (14.0-18.0) g/dl Hct 49.8 (40.1-51.0) % MCV 94.7 (80.0-100.0) fL MCH 31.7 (25.0-34.0) pg MCHC 33.5 (32.0-36.0) g/dL RDW Std Deviation 49.7 H (36.4-46.3) fL RDW Coeff of Krupa 14.4 (11.5-14.5) % Plt Count 239 (130-400) K/uL MPV 9.8 (9.4-12.4) fL Sodium 138 (136-145) mmol/L Potassium 4.1 (3.5-5.1) mmol/L Chloride 101 (98-107) mmol/L Carbon Dioxide 33 H (21-32) mmol/L Anion Gap 4 (3-11) BUN 12 (6-23) mg/dl Creatinine 0.88 (0.6-1.4) mg/dl Est Cr Clr Drug Dosing 131.7 ml/min Est GFR ( Amer) 121.1 ml/min Est GFR (Non-Af Amer) 104.5 ml/min BUN/Creatinine Ratio 13.6 (10-20) Glucose 97 (70-99(Fasting)) mg/dl Calcium 9.0 (8.5-10.1) mg/dl Phosphorus 3.7 (2.5-4.9) mg/dl Magnesium 1.9 (1.7-2.4) mg/dl Streptococcus sp PCR DETECTED A (NotDetected) Bld Cult ID Panel PCR See PCR Comment (NotDetected) Medications Administered Current Inpatient Medications Acetaminophen (Acetaminophen 325 Mg Tab) 650 mg PO Q4H PRN PRN Reason: Pain or Fever Stop: 09/24/22 20:09 Aspirin (Aspirin 81 Mg Ectab) 81 mg PO DAILY [facility] Stop: 09/25/22 08:59 Last Admin: 08/28/22 07:39 Dose: 81 mg Atorvastatin Calcium (Atorvastatin 40 Mg Tab) 80 mg PO QAM [facility] Stop: 09/26/22 08:59 Last Admin: 08/28/22 07:39 Dose: 80 mg Clopidogrel Bisulfate (Clopidogrel Bisulfate 75 Mg Tab) 75 mg PO QAM [facility] Stop: 09/25/22 08:59 Last Admin: 08/28/22 07:39 Dose: 75 mg Vancomycin HCl 1,250 mg/ (Sodium Chloride) 275 mls @ 200 mls/hr IV Q12H [facility]; Protocol Stop: 08/29/22 17:59 Last Infusion: 08/28/22 07:13 Dose: Infused Labetalol HCl (Labetalol Hcl Iv 5 Mg/Ml 20ml) 5 mg IV Q4H PRN PRN Reason: hypertension Stop: 09/24/22 18:22 Miscellaneous Information (Pharmacist Discharge Med Rec Consult) 1 each N/A UD PRN PRN Reason: Consult Stop: 09/24/22 20:09 Miscellaneous Information (Vancomycin Consult Active) 1 each N/A UD PRN PRN Reason: Consult Stop: 09/26/22 17:31 Ondansetron HCl (Ondansetron Inj 2 Mg/Ml 2 Ml Vial) 4 mg IV Q6H PRN PRN Reason: Nausea Stop: 09/24/22 20:09 Polyethylene Glycol (Polyethylene (Miralax) 17 Gm Pack) 17 gm PO DAILY PRN PRN Reason: Constipation Stop: 09/24/22 20:09 (1) CVA (cerebral vascular accident) CVA mechanism: unspecified Qualified Code(s): I63.9 - Cerebral infarction, unspecified
--- NOTE | 2022-08-28 10:50 | Pharmacy Report ---
- Date of Service August 28, 2022 - Pharmacy CVA/TIA Medication Review Medications to Prevent Stroke handout has been added to the patients discharge packet. Antiplatelet(s) * Aspirin 81mg daily, clopidogrel 75mg daily Cholesterol * High intensity statin: atorvastatin 80 mg daily DVT Prophylaxis * SCDs, patient out of bed/ambulating Therapeutic Anticoagulation * No history of Afib/Aflutter noted Type 2 Diabetes * Patient does not have T2DM
--- NOTE | 2022-08-28 10:55 | Electrocardiogram Report ---
Test Reason : Blood Pressure : / mmHG Vent. Rate : 075 BPM Atrial Rate : 075 BPM P-R Int : 000 ms QRS Dur : 106 ms QT Int : 332 ms P-R-T Axes : 000 118 040 degrees QTc Int : 370 ms Poor data quality, interpretation may be adversely affected sinus rhythm Right axis deviation Nonspecific ST abnormality Abnormal ECG Confirmed by Saran Webster ([id number]) on 08/28/2022 10:55:06 AM Referred By: REFERRED SELF Confirmed By:Melo Webster
--- NOTE | 2022-08-28 11:03 | Cardiology Progress Note ---
Date of Service August 28, 2022 Assessment & Plan (1) HTN (hypertension): (2) Mobitz type 1 second degree AV block: (3) CVA (cerebral vascular accident): (4) CAD (coronary artery disease): (5) Tobacco use: (6) Basilar artery aneurysm: (7) PDA (patent ductus arteriosus): (8) Nocturnal hypoxemia due to obesity: Plan Metoprolol discontinued. Recommend low-dose carvedilol 3.125 mg twice daily to improve blood pressure control. Continue telemetry monitoring. Continue oxygen supplementation nightly. Outpatient sleep study recommended. Neurology input appreciated. Continue dual antiplatelet therapy. Evidence of possible patent ductus arteriosus per echocardiogram. Findings present on prior studies dating back to 2018. There is no left ventricular chamber enlargement or signs/symptoms of congestive heart failure or endocarditis. Blood cultures ordered for completeness due to the risk of endocarditis associated with PDA. PDA is not typically associated with cerebrovascular accident or TIA. Smoking cessation advised. Continue statin therapy. Admission and Anticipated Discharge Date Admission Date: August 25, 2022 Subjective Patient seen examined the bedside. No recurrent AV block overnight. Metoprolol held since 08/27/2020 2 in the AM. Speech improved today. No focal weakness or visual changes. Tolerating diet and other medications listed below. No orthopnea or PND. Review of Systems Review of Systems: All systems reviewed & are unremarkable except as noted in Subjective Physical Exam Constitutional: well nourished and + obese; no acute distress Respiratory: no respiratory distress, no labored breathing and no retractions Cardiovascular: Rate/Rhythm: regular rate, regular rhythm and + tachycardic Heart Sounds: normal S1 and normal S2; no murmur Vessels: radial pulses present; no JVD and no carotid bruit Extremities: no edema Gastrointestinal (Abdomen): Inspection/Auscultation: normal bowel sounds; abdomen not distended and no abdominal edema Percussion/Palpation: abdomen soft; abdomen nontender, no guarding and abdomen not rigid Neurologic: Speech / Cognition: + abnormal speech Results & Data ([facility]) Vital Signs (Past 12 Hours) Vital Signs Temp Pulse Pulse Resp BP Pulse Ox O2 Del Method 08/28/22 08:00 72 08/28/22 08:00 Room Air 08/28/22 06:38 36.4 C L 70 18 145/97 H 90 Room Air 08/28/22 03:12 36.4 C L 72 18 157/85 H 91 Room Air 08/27/22 23:17 36.7 C 81 18 161/99 H 93 Room Air 08/27/22 23:13 90 (1) CVA (cerebral vascular accident) CVA mechanism: unspecified Qualified Code(s): I63.9 - Cerebral infarction, unspecified
[2022-08-28] MEDS: carvediloL 3.125 MG TAB PO SCH ×2 (11:33→20:35)
--- NOTE | 2022-08-28 12:04 | Pharmacy Report ---
Pharmacy PK ABX Note - Date of Service August 28, 2022 - Assessment and Plan Assessment 42 year old M receiving vancomycin empirically in setting of (+) blood culture. Blood cultures (08/26) positive alpha strep not enterococcus in 10/04. Afebrile, normal WBC - likely contaminant. 08/27 repeat cultures pending. Renal function stable. Day # 2 of antimicrobial therapy. Plan Vancomycin * Loading dose: 2250 mg IV x 1 * Maintenance dose: 1250 mg IV every 12 hours * Regimen is predicted to achieve target AUC/CRISTIANO of 400-600 mg/L.hr * Will obtain a level around steady state if vancomycin continued Pharmacy will continue to follow and will adjust dose/frequency as necessary. Thank you. Pharmacy has transitioned to AUC monitoring for vancomycin. AUC/CRISTIANO is the preferred PK/PD target and is associated with decreased risk of nephrotoxicity compared to traditional trough targets.
[2022-08-29] MEDS: VANCOMYCIN HCL 1,250 MG in SODIUM CHLORIDE 0.9% 250 ML IV SCH (05:21)
[2022-08-29] MEDS: CLOPIDOGREL BISULFATE 75 MG TAB PO SCH (08:10)
[2022-08-29] MEDS: ASPIRIN 81 MG ECTAB PO SCH (08:10)
[2022-08-29] MEDS: carvediloL 3.125 MG TAB PO SCH (08:10)
[2022-08-29] MEDS: ATORVASTATIN 40 MG TAB PO SCH (08:10)
--- NOTE | 2022-08-29 13:42 | Cardiology Progress Note ---
Date of Service August 29, 2022 Assessment & Plan (1) HTN (hypertension): (2) Mobitz type 1 second degree AV block: (3) CVA (cerebral vascular accident): (4) CAD (coronary artery disease): (5) Tobacco use: (6) Basilar artery aneurysm: (7) PDA (patent ductus arteriosus): (8) Nocturnal hypoxemia due to obesity: Plan Continue carvedilol 3.125 mg twice daily, in addition to aspirin, Plavix, and high intensity statin therapy. Continue oxygen supplementation nightly. Outpatient sleep study recommended. Neurology input appreciated. Continue dual antiplatelet therapy. Evidence of possible patent ductus arteriosus per echocardiogram. Findings present on prior studies dating back to 2018. There is no left ventricular chamber enlargement or signs/symptoms of congestive heart failure or endocarditis. Blood cultures demonstrating 1 bottle with alpha strep. Repeat cultures negative. Isolated positive blood culture likely contaminant. PDA is not typically associated with cerebrovascular accident or TIA. Smoking cessation advised. No further inpatient cardiac testing or intervention. Admission and Anticipated Discharge Date Admission Date: August 25, 2022 Subjective Patient seen examined the bedside. Anxious for discharge. Offers no complaints. Slurred speech unchanged. Telemetry reveals sinus rhythm 80s-90s. No recurrent second-degree AV block Mobitz type I overnight. Transitioned to carvedilol yesterday. Blood pressure control improved. Review of Systems Review of Systems: All systems reviewed & are unremarkable except as noted in Subjective Physical Exam Constitutional: well nourished and + obese; no acute distress Respiratory: no respiratory distress, no labored breathing and no retractions Cardiovascular: Rate/Rhythm: regular rate and regular rhythm Heart Sounds: normal S1 and normal S2; no murmur Vessels: radial pulses present; no JVD and no carotid bruit Extremities: no edema Gastrointestinal (Abdomen): Inspection/Auscultation: normal bowel sounds; abdomen not distended and no abdominal edema Percussion/Palpation: abdomen soft; abdomen nontender, no guarding and abdomen not rigid Neurologic: Speech / Cognition: + abnormal speech Results & Data ([facility]) Vital Signs (Past 12 Hours) Vital Signs Temp Pulse Pulse Resp BP BP Pulse Ox 08/29/22 12:00 36.5 C 69 16 141/64 H 95 08/29/22 08:00 77 08/29/22 03:54 36.3 C L 69 20 110/87 93 O2 Del Method O2 Flow Rate 08/29/22 12:00 Room Air 08/29/22 08:00 08/29/22 03:54 Nasal Cannula 2 (1) CVA (cerebral vascular accident) CVA mechanism: unspecified Qualified Code(s): I63.9 - Cerebral infarction, unspecified
--- NOTE | 2022-08-29 15:58 | Hospitalist Progress Note ---
Date of Service August 29, 2022 Assessment & Plan (1) CVA (cerebral vascular accident): (2) Basilar artery aneurysm: Plan: Patient is a 42-year-old male with PMH HTN, COPD, tobacco use, CAD, CVA, dolichoectasia of basilar artery aneurysm presented to ER with complaint of slurred speech that started yesterday afternoon. Med non-compliance In ER afebrile, initial BP: 158/102 CT Head: 1. No acute intracranial abnormality. 2. Chronic right cerebellar infarct. 3. 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 There is no evidence of aneurysm rupture on today's study. CTA Head and Neck: 1. 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 There is no evidence of aneurysm rupture on today's study. 2. Mild atherosclerosis without dissection, high-grade stenosis or arterial occlusion identified. 3. Mild nonspecific cervical chain lymphadenopathy. ER physician spoke to Dr Sánchez [facility] neurosurgery who stated no surgical procedure. Also spoke to automatic transmission mechanic neurologist - Dr Loving who recommended MRI brain and aspirin 81 and plavix 75mg daily MRI brain obtained 1.Subcentimeter acute to subacute appearing infarct of the left cerebral peduncle. 2. Dolichoectasia with fusiform aneurysmal dilation of the basilar artery re- demonstrated, better characterized on the CTA head and neck study of same day. 3. Chronic right cerebellar infarct. Lipid panel, A1c 6.3% Echo with bubble study - no significant change from study from October 2017. EF 60 to 65%. There is moderate concentric LVH. Aortic valve sclerosis mild, without significant aortic valvular stenosis. Injection of contrast documented no interatrial shunt. There is flow by color Doppler in the pulmonary artery which is concerning forpatent ductus arteriosus. Aspiration precautions PT/OT consult Patient is to be on aspirin and Plavix however noncompliant.Restart aspirin, Plavix Neurology consulted -cont. ASA, plavix, lipitor 80 daily, hypercoag. work-up ordered- follow results, SHANNON study as outpt - outpt Holter - follow up w/ neurology - pt wants to follow up w/ [facility] 3.2 sec pause noted on telemetry ECG on admission - LAFB -Cardiology consulted - seems to be associated w/ sleep/ nocturnal hypoxia - likely second degree AV block Mobitz I -nocturnal hypoxia study obtained and positive for hypoxia - plan to DC on home O2 and plan for outpt sleep study - also TSH ordered, and given PDA, blood cultx obtained - 1 posit. blood cultx - alpha strep likely contaminant - cont. to monitor on tele - pt started on small dose carvedilol instead of metoprolol (3) HTN (hypertension): Plan: Noncompliant home medications. Was to be on amlodipine 10mg daily, metoprolol tartrate 100mg BID. Lasix 20mg daily prn LE edema Cardiology following, as above 08/28 - pt started on small dose carvedilol instead of metoprolol (4) Dyslipidemia: Plan: atorvastatin 80 mg - per neurology recs (5) CAD (coronary artery disease): Plan: Denies CP, SOB. EKG sinus rhythm, LAFB, poor R wave progression Cardiology following, as above (6) COPD (chronic obstructive pulmonary disease): Plan: Not on inhalers No signs of exacerbation currently Monitor (7) Tobacco use: Plan: 2-3ppd x 30 years Smoking cessation encouraged. Denies nicotine patch Patient's sister Jaja Carlton - Cell phone number: [phone] DNR/DNI a Follows with Esteban Underwood PA-C for routine care Admission and Anticipated Discharge Date Admission Date: August 25, 2022 Subjective Pt seen in follow up of CVA Currently patient is sitting up in chair, in no acute distress Overall patient feels well Denies any chest pain or shortness of breath, denies any weakness in his arms or legs, continues to have garbled speech No abdominal pain nausea or vomiting Nocturnal hypoxia study showed hypoxia. Cardiology following. Review of Systems Review of Systems: All systems reviewed & are unremarkable except as noted in Subjective Physical Exam Physical Exam: General: +obese M, no distress Head: normocephalic, atraumatic Eyes: PERRL, EOM's intact, conjunctiva non-injected, anicteric ENT: normal inspection external ears, nose, mucous membranes moist Neck: supple Lungs: clear, no respiratory distress, no wheezing/rhonchi/rales CV: RRR, no murmur, trace pretibial edema Abd: normal BS, soft, non-tender Ext: no calf tenderness Neuro: A&O x 3, +slurred speech, moves extremities , strength 5/5 Skin: warm, dry Results & Data Results & Data ([facility]) Vital Signs (Past 12 Hours) Vital Signs Temp Pulse Pulse Resp BP Pulse Ox O2 Del Method 08/29/22 15:09 93 H 08/29/22 12:00 36.5 C 69 16 141/64 H 95 Room Air 08/29/22 08:00 77 Medications Administered Current Inpatient Medications Acetaminophen (Acetaminophen 325 Mg Tab) 650 mg PO Q4H PRN PRN Reason: Pain or Fever Stop: 09/24/22 20:09 Aspirin (Aspirin 81 Mg Ectab) 81 mg PO DAILY [facility] Stop: 09/25/22 08:59 Last Admin: 08/29/22 08:10 Dose: 81 mg Atorvastatin Calcium (Atorvastatin 40 Mg Tab) 80 mg PO QAM [facility] Stop: 09/26/22 08:59 Last Admin: 08/29/22 08:10 Dose: 80 mg Carvedilol (Carvedilol 3.125 Mg Tab) 3.125 mg PO BID [facility] Stop: 09/27/22 10:59 Last Admin: 08/29/22 08:10 Dose: 3.125 mg Clopidogrel Bisulfate (Clopidogrel Bisulfate 75 Mg Tab) 75 mg PO QAM [facility] Stop: 09/25/22 08:59 Last Admin: 08/29/22 08:10 Dose: 75 mg Vancomycin HCl 1,250 mg/ (Sodium Chloride) 275 mls @ 200 mls/hr IV Q12H [id number]; Protocol Stop: 08/29/22 17:59 Last Infusion: 08/29/22 06:34 Dose: Infused Labetalol HCl (Labetalol Hcl Iv 5 Mg/Ml 20ml) 5 mg IV Q4H PRN PRN Reason: hypertension Stop: 09/24/22 18:22 Miscellaneous Information (Vancomycin Consult Active) 1 each N/A UD PRN PRN Reason: Consult Stop: 08/29/22 17:59 Ondansetron HCl (Ondansetron Inj 2 Mg/Ml 2 Ml Vial) 4 mg IV Q6H PRN PRN Reason: Nausea Stop: 09/24/22 20:09 Polyethylene Glycol (Polyethylene (Miralax) 17 Gm Pack) 17 gm PO DAILY PRN PRN Reason: Constipation Stop: 09/24/22 20:09 (1) CVA (cerebral vascular accident) CVA mechanism: unspecified Qualified Code(s): I63.9 - Cerebral infarction, unspecified
--- NOTE | 2022-08-29 16:30 | Discharge Summary ---
Date of Service August 29, 2022 Admission HPI Per Admitting Provider Patient is a 42-year-old male with PMH HTN, COPD, tobacco use, CAD, CVA, dolichoectasia of basilar artery aneurysm presented to ER with complaint of slurred speech that started yesterday afternoon. History obtained from patient, patient's family and chart review. He states he took a nap and woke up with slurred speech. Sister also reports that he ambulated to bathroom that he almost fell yesterday. Sister and patient reports slurred speech is about the same as yesterday. Patient admits that he does not take his medications regularly. Last took medications about 2 weeks ago. Sister states he hasn't taken his m edications as prescribed for years. Pharmacy review shows that patient last had Plavix filled in 11/2021, metoprolol tartrate in 01/2022 and amlodipine in 03/2022. Denies extremities weakness or paresthesias. Has chronic intermittent YANEZ's. Reports chronic cough. Reports nocturia for "awhile". Smokes 2-3ppd x 30 years. He hasn't smoked since yesterday. Patient has been seen by neurosurgery at [facility] as well as [facility] with previous conversations of no possible surgical intervention. Denies fever/chills, diaphoresis, N/V/D/C, dizziness, syncope, vision changes, neck pain, CP, SOB, orthopnea, palpitations, sore throat, choking, otalgia, rhinorrhea, abdominal pain, extremity edema, rashes, dysuria. Admission Exam Per Admitting Provider General: no distress, +obese Head: normocephalic, atraumatic Eyes: PERRL, EOM's intact, conjunctiva non-injected, anicteric ENT: normal inspection external ears, nose, mucous membranes moist Neck: supple, trachea midline Lungs: clear, no respiratory distress, no wheezing/rhonchi/rales CV: RRR, no murmur, trace pretibial edema Abd: normal BS, soft, non-tender Ext: no cyanosis, no calf tenderness Neuro: A&O x 3, face is strong and symmetric ,hearing grossly intact, soft palate elevates symmetrically, +slurred speech, shoulder shrug intact, tongue is midline, normal movement, no fasciculations Skin: warm, dry Principal Diagnosis CVA 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 Nocturnal hypoxia Discharge Exam General: +obese M, no distress Head: normocephalic, atraumatic Eyes: PERRL, EOM's intact, conjunctiva non-injected, anicteric ENT: normal inspection external ears, nose, mucous membranes moist Neck: supple Lungs: clear, no respiratory distress, no wheezing/rhonchi/rales CV: RRR, no murmur, trace pretibial edema Abd: normal BS, soft, non-tender Ext: no calf tenderness Neuro: A&O x 3, +slurred speech, moves extremities , strength 5/5 Skin: warm, dry Discharge Data Allergies Allergy/AdvReac Type Severity Reaction Status Date / Time Penicillins Allergy Mild UNKNOWN Verified 08/25/22 16:45 oxycodone AdvReac Mild GI DISTRESS Verified 08/25/22 16:45 Consultations 08/25/22 17:16 ED Decision to Admit Stat 08/25/22 20:10 Consult Neurology Routine 08/26/22 08:00 Consult Cardiology Routine Ordered Studies 08/25/22 14:35 CT head/brain wo con Stat FINDINGS: No acute intracranial hemorrhage, midline shift, intracranial mass, hydrocephalus, territorial ischemia or abnormal extra-axial collection. Dolichoectasia with aneurysmal dilation of the basilar artery is redemonstrated. The peripherally calcified basilar artery at the level of the dotty measures 2.3 x 1.9 cm, previously 1.5 x 1.5 cm when measured in a similar fashion. This causes moderate mass effect upon the ventral aspect of the pontine brainstem. The distal basilar artery just proximal to the bifurcation measures up to 9 mm transversely, previously 6 mm. No evidence of aneurysm rupture. Chronic intramural thrombus versus atheromatous plaque is again noted within the basilar artery. Additional cerebral vascular calcifications of the carotid and middle cerebral arteries. Chronic right cerebellar infarct. The calvarium is intact. The paranasal sinuses, mastoid air cells, and middle ear cavities are clear. IMPRESSION: 1. No acute intracranial abnormality. 2. Chronic right cerebellar infarct. 3. 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 There is no evidence of aneurysm rupture on today's study. 08/25/22 15:36 CT angio head w con Stat CT angio neck with con Stat FINDINGS: Four-vessel morphology of the thoracic aortic arch. Patency of the innominate and imaged subclavian arteries. The common and internal carotid arteries are widely patent. There is mild atherosclerotic plaque of the left carotid bulb and proximal left ICA resulting in less than 50% stenosis. Fusiform dilation of the left carotid terminus measures up to 7 mm, previously measured at 6 mm. The anterior and middle cerebral arteries are widely patent. Mild atherosclerotic plaque without central stenosis of the bilateral vertebral arteries. Dolichoectasia with aneurysmal dilation of the basilar artery is redemonstrated. The peripherally calcified basilar artery at the level of the dotty measures 2.2 x 1.9 cm, previously 1.5 x 1.5 cm when measured in a similar fashion. This causes moderate mass effect upon the ventral aspect of the pontine brainstem. The distal basilar artery just proximal to the bifurcation measures up to 9 mm transversely, previously 6 mm. No evidence of aneurysm rupture. Chronic intramural thrombus/atheromatous plaque is again noted within the basilar artery. Chronic right cerebellar infarct. No abnormal intracranial enhancement. Lung apices are clear. No pneumothorax. Nonspecific cervical chain lymphadenopathy measures up to 1.5 cm on the left. No acute fracture. Degenerative changes of the cervical spine with mild kyphotic curvature. IMPRESSION: 1. 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 There is no evidence of aneurysm rupture on today's study. 2. Mild atherosclerosis without dissection, high-grade stenosis or arterial occlusion identified. 3. Mild nonspecific cervical chain lymphadenopathy. 08/25/22 17:07 MR brain wo con Stat FINDINGS: Chronic right cerebellar infarct. Dolichoectasia with aneurysmal dilation of the basilar artery redemonstrated with associated chronic intramural thrombus/atheromatous plaque. There is increased mass effect upon the cerebral peduncles and dotty compared to the 2019 exam. The midline structures appear unremarkable otherwise. Study is mildly motion degraded. No evidence of acute or subacute territorial infarct. There is an 8 mm area of restricted diffusion with decreased signal on the ADC map involving the left cerebral peduncle, image 9 of the axial series. No acute intracranial hemorrhage, midline shift, abnormal extra-axial collection, hydrocephalus or intracranial mass. Cerebral venous sinuses and major arterial flow voids are otherwise unremarkable. Skull, orbits and soft tissues are unremarkable. Mastoid air cells and paranasal sinuses are clear. IMPRESSION: 1. Subcentimeter acute to subacute appearing infarct of the left cerebral peduncle. 2. Dolichoectasia with fusiform aneurysmal dilation of the basilar artery redemonstrated, better characterized on the CTA head and neck study of same day. 3. Chronic right cerebellar infarct. Hospital Course (1) CVA (cerebral vascular accident): (2) Basilar artery aneurysm: Patient is a 42-year-old male with PMH HTN, COPD, tobacco use, CAD, CVA, dolichoectasia of basilar artery aneurysm presented to ER with complaint of slurred speech that started yesterday afternoon. Med non-compliance In ER afebrile, initial BP: 158/102 CT Head: 1. No acute intracranial abnormality. 2. Chronic right cerebellar infarct. 3. 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 There is no evidence of aneurysm rupture on today's study. CTA Head and Neck: 1. 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 There is no evidence of aneurysm rupture on today's study. 2. Mild atherosclerosis without dissection, high-grade stenosis or arterial occlusion identified. 3. Mild nonspecific cervical chain lymphadenopathy. ER physician spoke to Dr Sánchez [facility] neurosurgery who stated no surgical procedure. Also spoke to environmental construction engineer neurologist - Dr Loving who recommended MRI brain and aspirin 81 and plavix 75mg daily MRI brain obtained 1.Subcentimeter acute to subacute appearing infarct of the left cerebral peduncle. 2. Dolichoectasia with fusiform aneurysmal dilation of the basilar artery re- demonstrated, better characterized on the CTA head and neck study of same day. 3. Chronic right cerebellar infarct. Lipid panel, A1c 6.3% Echo with bubble study - no significant change from study from October 2017. EF 60 to 65%. There is moderate concentric LVH. Aortic valve sclerosis mild, without significant aortic valvular stenosis. Injection of contrast documented no interatrial shunt. There is flow by color Doppler in the pulmonary artery which is concerning forpatent ductus arteriosus. Aspiration precautions PT/OT consult Patient is to be on aspirin and Plavix however noncompliant.Restart aspirin, Plavix Neurology consulted -cont. ASA, plavix, lipitor 80 daily, hypercoag. work-up ordered- follow results, SHANNON study as outpt - outpt Holter - follow up w/ neurology - pt wants to follow up w/ [place] neurology 3.2 sec pause noted on telemetry ECG on admission - LAFB -Cardiology consulted - seems to be associated w/ sleep/ nocturnal hypoxia - likely second degree AV block Mobitz I -nocturnal hypoxia study obtained and positive for hypoxia - plan to DC on home O2 and plan for outpt sleep study - also TSH ordered, and given PDA, blood cultx obtained - 1 posit. blood cultx - alpha strep likely contaminant - cont. to monitor on tele - pt started on small dose carvedilol instead of metoprolol (3) HTN (hypertension): Noncompliant home medications. Was to be on amlodipine 10mg daily, metoprolol tartrate 100mg BID. Lasix 20mg daily prn LE edema Cardiology following, as above 08/28 - pt started on small dose carvedilol instead of metoprolol (4) Dyslipidemia: atorvastatin 80 mg - per neurology recs (5) CAD (coronary artery disease): Denies CP, SOB. EKG sinus rhythm, LAFB, poor R wave progression Cardiology following, as above (6) COPD (chronic obstructive pulmonary disease): Not on inhalers No signs of exacerbation currently Monitor (7) Tobacco use: 2-3ppd x 30 years Smoking cessation encouraged. 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 will contact you to be set up with an appointment in [place], per your request. An appointment had already been made for you at [facility]. Please cancel the [facility] appointment if you are able to be seen sooner in [place]. Thank you) Daniella Turner PA-C [Physician Retail Grocer] - (Date & Time 10/26/2022 11:20 AM Provider Daniella Turner PA-C Department Neurology [facility] ) Esteban Tucker PA-C [Primary Care Provider] - 08/30/22 10:00 am Diet: Heart Healthy Gela Attending Provider Instructions: Follow-up with your primary care doctor and [facility] neurology. [facility] neurology was contacted about your wish to have an appointment with them. You will be contacted by their office. As discussed, take aspirin and Plavix daily. Also take Lipitor 80 mg daily. Stop taking metoprolol. Start taking carvedilol 3.125 mg twice daily. Use oxygen, 2 L at night while sleeping. You will need official sleep study done. It is also recommended that you follow-up with speech therapy. It is also strongly recommended that you quit smoking. Consider calling [employer], the free smoking cessation line. Gela Tobacco Stemmer Machine Provider Instructions: Risk Factors for Stroke: You can reduce your chances of stroke by working with your medical provider to adopt a healthy lifestyle. Some specific ways to lower your chance of stroke are: * If you are a smoker, now is the time to stop smoking cigarettes * If you are diabetic, improve the control of your blood sugars * Avoid excessive amounts of alcohol * Control high blood pressure * Lose weight if you are overweight * Be sure to lead an active lifestyle * Eat a healthy diet low in salt, cholesterol and fat You should know about other risk factors for stroke that you are unable to control. These include: * Age 55 years or older * Male gender * Certain racial groups: , or / * Family History of Stroke, Mini stroke or Heart Attack * Sickle Cell Disease Follow Up: It is important for you to keep your follow up appointments with your medical provider. Who to Call and When: Medical Emergencies: Call 911 immediately if you experience any of the following warning signs and symptoms of Stroke: * Sudden numbness or weakness of the face, arm or leg, especially on one side of the body * Sudden confusion, trouble speaking or understanding * Sudden trouble seeing in one or both eyes * Sudden trouble walking, dizziness, loss of balance or coordination * Sudden severe headache with no cause Do not delay calling 911 if you experience any warning signs or symptoms of a stroke. Delay in seeking medical attention may affect what treatments can be given to you. . Pending Studies at Discharge: Yes Studies:: Hypercoag. work-up Stand-Alone Forms: My [facility] [address], Smoking Cessation, Medications to Prevent Stroke Medications and DC Order Prescriptions: New clopidogrel 75 mg Tablet 75 mg PO QAM Qty: 30 0RF atorvastatin 40 mg Tablet 80 mg PO QAM Qty: 30 0RF carvedilol 3.125 mg Tablet 3.125 mg PO BID Qty: 60 0RF aspirin 81 mg Tablet,Delayed Release (Dr/Ec) 81 mg PO DAILY Qty: 30 0RF Continued aspirin [Connie Low Dose Aspirin] 81 mg Tablet,Delayed Release (Dr/Ec) 81 mg PO DAILY acetaminophen [Tylenol Extra Strength] 500 mg Tablet 500 - 1,000 mg PO BID PRN (Reason: Pain) furosemide 20 mg tablet 20 mg PO DAILY PRN (Reason: Edema) Discontinued amlodipine 10 mg tablet 10 mg PO DAILY metoprolol tartrate 100 mg tablet 100 mg PO BID Discharge Orders: Discharge Order (Routine); Ordered 08/29/22 Ordered By: Cristi Polo/Other Patient Handouts: Prediabetes, 5 Steps for Eating Healthier Admission Data Admit Date/Time: 08/25/22 17:35 Attending Provider: Cristi Williamson Admit Provider: Rashad Holland Primary Care Provider: Esteban Tucker Other Providers: Rashad Holland ; Hai Yao ; Josh Del Rosario ; Chase Dodge ; Alok Reyes ; Kamron Wu ; Gerardo العراقي ; Anastasia Penny ; Daniella Leslie ; Jada Henderson ; Richard Childress ; Sukumar Loving
[2022-08-31 07:44] LABS: B2 Glycoprotein IgG <2.0 U/mL (<20.0); B2 Glycoprotein IgM 3.1 U/mL (<20.0); Protein S Functional(Activity) 97 % normal (70-150)
[2022-09-01 03:08] LABS: Anti Cardiolipin Ab IgG <2.0 GPL-U/mL; Anti Cardiolipin Ab IgM <2.0 MPL-U/mL; Anti-Thrombin III Activity 130 % normal (80-135); PTT LA Screen 46 sec (<=40)
[2022-09-01 08:38] LABS: Lupus Hex Phase (Rflxdonotord) Negative (Negative)
[2022-09-03 20:52] LABS: Factor 5 Mutation NEGATIVE
== END 2022-08-29 17:12 | disposition home or self-care (01) | DRG 65 ==
LOC: ED 14:10 → 2E 17:35 → SUATTDRO 17:35 → 2E 19:51

== ENCOUNTER 2022-09-07 09:26 | Inpatient (IN) ==
--- NOTE | 2022-09-07 10:27 | Emergency Department Note ---
History of Present Illness General Chief complaint: Fall Stated complaint: FELL TWICE YESTERDAY, STROKE A WEEK AGO, LEG PAIN Time Seen by Provider: 09/07/22 10:12 Source: patient and family (Aunt who is at the bedside) Mode of arrival: ambulatory Limitations: no limitations History of Present Illness Maximum Pain Intensity: 7 This patient is a 42-year-old male had a stroke recently around [facility] who is here for few days and is now is now at home comes after falling twice. His stroke left him with weakness and speech issues he has been followed by physical therapist a lot came in according to his aunt they said he is a 60% fall risk. He did have a stroke prior also in 2018. Last night he was walking and fell he injured his his knee and has trouble walking now his onset when he left the hospital he was able to walk now he cannot. His living situation is he lives with his ex- and has to walk up time steps to go to the bathroom. No fever. He says he cannot walk [facility] because his right leg hurts but is also weak. He fell yesterday symptoms started sometime yesterday as well. He is taking aspirin. Denies any chest pain or shortness of breath. He has had no change in his speech. No headache or abdominal pain. Home Medications Medication Instructions Recorded Confirmed Type acetaminophen 500 mg tablet 500 - 1,000 mg PO BID PRN Pain 11/25/18 09/07/22 History (Tylenol Extra Strength) furosemide 20 mg tablet 20 mg PO DAILY PRN Edema 08/25/22 09/07/22 History aspirin 81 mg tablet,delayed 81 mg PO DAILY #30 tabs 08/29/22 09/07/22 Rx release atorvastatin 40 mg tablet 80 mg PO QAM #30 tabs 08/29/22 09/07/22 Rx carvedilol 3.125 mg tablet 3.125 mg PO BID #60 tabs 08/29/22 09/07/22 Rx clopidogrel 75 mg tablet 75 mg PO QAM #30 tabs 08/29/22 09/07/22 Rx Allergies Allergy/AdvReac Type Severity Reaction Status Date / Time Penicillins Allergy Mild UNKNOWN Verified 08/25/22 16:45 oxycodone AdvReac Mild GI DISTRESS Verified 08/25/22 16:45 Past Med/Surg History Medical History Basilar artery aneurysm CAD (coronary artery disease) COPD (chronic obstructive pulmonary disease) CVA (cerebral vascular accident) Dyslipidemia Fracture of wrist (10/11/12) Fx shaft fibula-closed (10/11/12) HTN (hypertension) 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) Tobacco use Surgical History History of arthroscopy of shoulder History of umbilical hernia repair Family History Father Coronary heart disease [place] age 50's Hypertension Grandfather (Paternal) Coronary heart disease Social History Smoking Status: Current every day smoker Tobacco Type: Cigarettes Cigarettes Per Day: 2-3ppd x 30 years; Hx Alcohol Use: No Hx Substance Use: No Preferred Language: Honduran Communication Ability: Effective 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 Beliefs That Will Affect Care: None marital status: Single Current Living Situation: Other Current Living Situation Comment: pt lives with someone, not [facility] business current occupational status: employed Feels Safe at Home: Yes Assistive Devices: None Review of Systems A total of 10 systems reviewed and were otherwise negative Physical Exam Vital Signs Vital Signs - 24 hr 09/07/22 09:35 09/07/22 11:04 09/07/22 11:32 Temperature 36.7 C Temperature Source Temporal Artery Scan Pulse Rate 98 H 103 H 99 H Pulse Rhythm Regular Respiratory Rate 20 22 22 Respiratory Effort / Characteristics Non-Labored Respiratory Depth Normal Blood Pressure 167/95 H Blood Pressure Mean 119 Pulse Oximetry 95 95 Oxygen Delivery Method Room Air Room Air Sepsis Recent Fever Within 48 Hours No Sepsis New/Unexplained Change in Mental Status N/A Sepsis Action Taken by Nursing No Action Required 09/07/22 12:00 09/07/22 12:30 09/07/22 12:30 Temperature Temperature Source Pulse Rate 94 H 90 Pulse Rhythm Respiratory Rate 20 23 Respiratory Effort / Characteristics Respiratory Depth Blood Pressure 129/81 138/81 Blood Pressure Mean 97 100 Pulse Oximetry Oxygen Delivery Method Sepsis Recent Fever Within 48 Hours Sepsis New/Unexplained Change in Mental Status Sepsis Action Taken by Nursing 09/07/22 13:00 09/07/22 13:00 09/07/22 13:30 Temperature Temperature Source Pulse Rate 92 H Pulse Rhythm Respiratory Rate 23 Respiratory Effort / Characteristics Respiratory Depth Blood Pressure 129/78 108/80 Blood Pressure Mean 95 89 Pulse Oximetry Oxygen Delivery Method Sepsis Recent Fever Within 48 Hours Sepsis New/Unexplained Change in Mental Status Sepsis Action Taken by Nursing 09/07/22 13:30 09/07/22 14:00 09/07/22 14:00 Temperature Temperature Source Pulse Rate 95 H 100 H Pulse Rhythm Respiratory Rate 15 17 Respiratory Effort / Characteristics Respiratory Depth Blood Pressure 108/84 Blood Pressure Mean 92 Pulse Oximetry Oxygen Delivery Method Sepsis Recent Fever Within 48 Hours Sepsis New/Unexplained Change in Mental Status Sepsis Action Taken by Nursing General: Well developed well nourished in no acute distress, breathing comfortably on room air. Normal speech HEENT: Normal cephalic atraumatic. Pupils are equal round and reactive to light. Extraocular movements are intact. Oropharynx is pink with moist mucous membranes. No swelling of the mouth lips or tongue. Neck: Supple with a midline trachea. No meningeal signs or stiffness, no JVD or bruits. No Stridor. Chest: Clear to auscultation bilaterally. No wheezes or rhonchi. No increased work of breathing. Heart: Regular rate and rhythm without murmurs or gallops. Abdomen: Soft nontender, nondistended without rebound guarding or rigidity. Extremities: No cyanosis clubbing or edema. No calf tenderness or assymetry. There is a small abrasion on the right anterior knee Spine/Back. Non tender to palpation. No CVA tenderness Skin: Good turgor without rashes. Neurologic exam: Cranial nerves two through 12 are intact. He has some weakness versus pain in the right lower extremity with movement he is able to flex and extend the ankle but this is limited with movement of the hip and knee. Medical Decision Making Differential Diagnosis Trauma, dizziness, arrhythmia, neurologic disease, electrolyte or metabolic abnormality, infection, anemia Medical Records Attestation: I reviewed the patient's medical records. Home Medications Current Medication List: was personally reviewed by me Laboratory Data Attestation: I reviewed the patient's lab results. Result diagrams: 09/07/22 11:24 09/07/22 11:24 Lab Results 09/07/22 09/07/22 09/07/22 Range/Units 11:20 11:24 11:24 WBC 11.84 H (4.8-10.8) K/ul RBC 5.55 (4.63-6.08) M/uL Hgb 17.8 (14.0-18.0) g/dl Hct 52.3 H (40.1-51.0) % MCV 94.2 (80.0-100.0) fL MCH 32.1 (25.0-34.0) pg MCHC 34.0 (32.0-36.0) g/dL RDW Std Deviation 49.1 H (36.4-46.3) fL RDW Coeff of Krupa 14.1 (11.5-14.5) % Plt Count 308 (130-400) K/uL MPV 9.9 (9.4-12.4) fL Immature Gran % (Auto) 0.4 % Neut % (Auto) 58.5 % Lymph % (Auto) 31.0 % [place] % (Auto) 7.9 % Eos % (Auto) 1.8 % Baso % (Auto) 0.4 % Neut # (Auto) 6.92 H (1.4-6.5) K/uL Lymph # (Auto) 3.67 H (1.2-3.4) K/uL [place] # (Auto) 0.94 H (0.24-0.82) K/uL Eos # (Auto) 0.21 (0-0.50) K/uL Baso # (Auto) 0.05 (0-0.2) K/uL Immature Gran # (Auto) 0.05 H (0.00-0.02) K/uL Sodium 137 (136-145) mmol/L Potassium 4.0 (3.5-5.1) mmol/L Chloride 100 (98-107) mmol/L Carbon Dioxide 29 (21-32) mmol/L Anion Gap 8 (3-11) BUN 13 (6-23) mg/dl Creatinine 0.86 (0.6-1.4) mg/dl Est Cr Clr Drug Dosing Not Reportable Est GFR ( Amer) 122.2 ml/min Est GFR (Non-Af Amer) 105.5 ml/min BUN/Creatinine Ratio 15.1 (10-20) Glucose 107 H (70-99(Fasting)) mg/dl Calcium 9.7 (8.5-10.1) mg/dl Total Bilirubin 0.4 (0.2-1.0) mg/dl AST 15 (13-39) U/L ALT 25 (7-52) U/L Alkaline Phosphatase 72 (34-104) U/L Troponin I High Sens 4.0 (0-20) pg/ml Total Protein 7.5 (6.0-8.3) gm/dl Albumin 4.0 (3.4-5.0) gm/dl Globulin 3.5 (2.5-4.0) gm/dl Albumin/Globulin Ratio 1.1 (0.9-2) TSH (0.300-4.500) uIu/ml Urine Color Urine Appearance (Clear) Urine pH (4.5-7.5) Ur Specific [place] (1.000-1.030) Urine Protein (Negative) Urine Glucose (UA) (Negative) Urine Ketones (Negative) Urine Blood (Negative) Urine Nitrite (Negative) Urine Bilirubin (Negative) Urine Urobilinogen (Negative) Ur Leukocyte Esterase (Negative) Urine WBC (Auto) (0-5) /hpf Urine RBC (Auto) (0-4) /hpf U Hyaline Cast (Auto) (0-5) /lpf U Epithel Cells (Auto) (0-5) /lpf Urine Bacteria (Auto) (Negative) SARS-CoV-2, RNA, NAAT NEGATIVE (NEGATIVE) 09/07/22 09/07/22 Range/Units 11:24 13:46 WBC (4.8-10.8) K/ul RBC (4.63-6.08) M/uL Hgb (14.0-18.0) g/dl Hct (40.1-51.0) % MCV (80.0-100.0) fL MCH (25.0-34.0) pg MCHC (32.0-36.0) g/dL RDW Std Deviation (36.4-46.3) fL RDW Coeff of Krupa (11.5-14.5) % Plt Count (130-400) K/uL MPV (9.4-12.4) fL Immature Gran % (Auto) % Neut % (Auto) % Lymph % (Auto) % [place] % (Auto) % Eos % (Auto) % Baso % (Auto) % Neut # (Auto) (1.4-6.5) K/uL Lymph # (Auto) (1.2-3.4) K/uL [place] # (Auto) (0.24-0.82) K/uL Eos # (Auto) (0-0.50) K/uL Baso # (Auto) (0-0.2) K/uL Immature Gran # (Auto) (0.00-0.02) K/uL Sodium (136-145) mmol/L Potassium (3.5-5.1) mmol/L Chloride (98-107) mmol/L Carbon Dioxide (21-32) mmol/L Anion Gap (3-11) BUN (6-23) mg/dl Creatinine (0.6-1.4) mg/dl Est Cr Clr Drug Dosing Est GFR ( Amer) ml/min Est GFR (Non-Af Amer) ml/min BUN/Creatinine Ratio (10-20) Glucose (70-99(Fasting)) mg/dl Calcium (8.5-10.1) mg/dl Total Bilirubin (0.2-1.0) mg/dl AST (13-39) U/L ALT (7-52) U/L Alkaline Phosphatase (34-104) U/L Troponin I High Sens (0-20) pg/ml Total Protein (6.0-8.3) gm/dl Albumin (3.4-5.0) gm/dl Globulin (2.5-4.0) gm/dl Albumin/Globulin Ratio (0.9-2) TSH 2.721 (0.300-4.500) uIu/ml Urine Color Yellow Urine Appearance Clear (Clear) Urine pH 5.0 (4.5-7.5) Ur Specific [place] 1.024 (1.000-1.030) Urine Protein 3+ H (Negative) Urine Glucose (UA) Negative (Negative) Urine Ketones Trace H (Negative) Urine Blood Negative (Negative) Urine Nitrite Negative (Negative) Urine Bilirubin Negative (Negative) Urine Urobilinogen Negative (Negative) Ur Leukocyte Esterase Negative (Negative) Urine WBC (Auto) 1-5 (0-5) /hpf Urine RBC (Auto) 0-4 (0-4) /hpf U Hyaline Cast (Auto) 1-5 (0-5) /lpf U Epithel Cells (Auto) 0-5 (0-5) /lpf Urine Bacteria (Auto) Negative (Negative) SARS-CoV-2, RNA, NAAT (NEGATIVE) Imaging Data Attestation: I personally reviewed and interpreted this imaging study as follows: My Impression: Knee x-rayno fracture or dislocation seen Head CTno acute hemorrhage or mass-effect seen Radiologist's Impression: Knee X-Ray 09/07/22 10:01 RIGHT KNEE 3 VIEWS CLINICAL HISTORY: Fall with right knee injury. FINDINGS: AP, crosstable lateral, and sunrise views of the right knee are obtained. No prior studies are available for comparison at the time of dictation. The skeletal structures are well-mineralized. No fracture is seen. The joint spaces are maintained. There are tiny marginal osteophytes. No joint effusion is identified. A calcified fabella is incidentally noted. There is mild prepatellar soft tissue swelling. IMPRESSION: Mild soft tissue swelling with no acute bony abnormality identified. Electronically signed by: Cale Pittman M.D. 09/07/2022 10:44 AM Chest X-Ray 09/07/22 11:04 XR chest 1V portable CLINICAL HISTORY: weakness TECHNIQUE: Single frontal radiograph of the chest was obtained. Comparison: Comparison is made to chest radiograph 08/25/2022 FINDINGS: No lines and tubes are seen. Cardiomegaly is noted. Prominence and cephalization of the vasculature is seen. Lungs are underinflated. No evidence of pleural effusion or pneumothorax. IMPRESSION: Cardiomegaly and likely mild pulmonary edema. ACT 112: Negative or not required by law. Electronically signed by: Ad Delgado M.D. 09/07/2022 11:[address] 09/07/22 11:04 CT head/brain wo con CLINICAL HISTORY: 42 years-old Male with Frequent falls, status post stroke, right leg weak. Acute strokelike symptoms TECHNIQUE: Multiple axial CT images of the head were obtained without contrast. A dose lowering technique was utilized adhering to the principles of ALARA. CT DOSE: 2189.34 mGycm COMPARISON: Brain MRI 08/25/2022 FINDINGS: No acute intracranial hemorrhage, midline shift, intracranial mass, hydrocephalus, territorial ischemia or abnormal extra-axial collection. 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 The previously noted infarct of the left cerebral peduncle is not appreciated on today's study. Chronic right cerebellar infarct. Mild ventriculomegaly is unchanged. The calvarium is intact. The paranasal sinuses, mastoid air cells, and middle ear cavities are clear. IMPRESSION: 1. No acute intracranial abnormality. 2. 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 3. Chronic right cerebellar infarct. 4. The previously described subcentimeter infarct within the left cerebral peduncle is not appreciated by CT. ACT 112: Negative or not required by law. The above report was generated using voice recognition software. It may contain grammatical, syntax or spelling errors. Electronically signed by: Arthur Braden M.D. 09/07/2022 12:01 PM ECG Data Attestation: I personally reviewed and interpreted this ECG as follows: Indication: + weakness Rate (beats per minute): 100 Rhythm: + normal sinus ECG Intervals/blocks: + Normal QRS, + Normal QT and + Normal IL ECG [place]: + Normal ECG ST segments: + Normal ST segments ECG Findings: no PACs or no PVCs Comparison ECG Date: from (08/25/22) Change: no significant change MDM Narrative This patient comes in after having recent stroke he is fallen twice in the last 24 hours he injured his knee. X-rays were obtained. When I went to evaluate him initially he was over an x-ray as x-rays had been previously ordered as a protocol. I talked to his aunt at length she feels he is gotten weaker and apparently PT said they cannot work with him because he is too weak and told him to come to the ER. He is supposed to be using a walker but apparently does not. His x-rays do not show any fracture or dislocation. It is difficult to say whether he is weak or this is more just pain but he cannot get around. The rest of his work-up looks okay there is no acute findings on the CT but he says that he has been weak and cannot go to the current living situation. I have consulted the [facility] hospitalist to see the patient in ER for this measures he is also had frequent falls. He will be admitted/observed Impression & Plan Weakness, Frequent falls, Ambulatory dysfunction, Acute knee pain, History of CVA in adulthood, Lab test negative for COVID-19 virus Discharge Plan Visit Data Chief Complaint: Fall Stated Complaint: FELL TWICE YESTERDAY, STROKE A WEEK AGO, LEG PAIN ED Provider: Rob Herrera Discharge Problem: Weakness, Frequent falls, Ambulatory dysfunction, Acute knee pain, History of CVA in adulthood, Lab test negative for COVID-19 virus Forms Stand Alone Forms: [facility] Prescriptions Prescriptions: No Action acetaminophen [Tylenol Extra Strength] 500 mg Tablet 500 - 1,000 mg PO BID PRN (Reason: Pain) furosemide 20 mg tablet 20 mg PO DAILY PRN (Reason: Edema) clopidogrel 75 mg Tablet 75 mg PO QAM Qty: 30 0RF atorvastatin 40 mg Tablet 80 mg PO QAM Qty: 30 0RF carvedilol 3.125 mg Tablet 3.125 mg PO BID Qty: 60 0RF aspirin 81 mg Tablet,Delayed Release (Dr/Ec) 81 mg PO DAILY Qty: 30 0RF Referrals Referrals: Esteban Tucker, ROSSI [Primary Care Provider] - : Acute knee pain Qualifiers: Laterality: right Qualified Code(s): M25.561 - Pain in right knee
--- NOTE | 2022-09-07 10:45 | XRay Report ---
RIGHT KNEE 3 VIEWS CLINICAL HISTORY: Fall with right knee injury. FINDINGS: AP, crosstable lateral, and sunrise views of the right knee are obtained. No prior studies are available for comparison at the time of dictation. The skeletal structures are well-mineralized. No fracture is seen. The joint spaces are maintained. There are tiny marginal osteophytes. No joint e ffusion is identified. A calcified fabella is incidentally noted. There is mild prepatellar soft tiss ue swelling. IMPRESSION: Mild soft tissue swelling with no acute bony abnormality identified. Electronically signed by: Cale Pittman M.D. 09/07/2022 10:44 AM
[2022-09-07 11:32] LABS: Basophils # (auto) 0.05 K/uL (0-0.2); Basophils % (auto) 0.4 %; Eosinophils # (auto) 0.21 K/uL (0-0.50); Eosinophils % (auto) 1.8 %; Hematocrit (blood only) 52.3 % (40.1-51.0); Hemoglobin 17.8 g/dl (14.0-18.0); Immature Granulocytes # (auto) 0.05 K/uL (0.00-0.02); Immature Granulocytes % (auto) 0.4 %; Lymphocytes # (auto) 3.67 K/uL (1.2-3.4); Mean Corpuscular Hemoglobin 32.1 pg (25.0-34.0); Mean Corpuscular Volume 94.2 fL (80.0-100.0); Mean Platelet Volume 9.9 fL (9.4-12.4); Monocytes # (auto) 0.94 K/uL (0.24-0.82); Monocytes % (auto) 7.9 %; Neutrophils # (auto) 6.92 K/uL (1.4-6.5); Neutrophils % (auto) 58.5 %; Platelet Count 308 K/uL (130-400); RDW Coefficient of Variation 14.1 % (11.5-14.5); RDW Standard Deviation 49.1 fL (36.4-46.3); Red Blood Count 5.55 M/uL (4.63-6.08); White Blood Count 11.84 K/ul (4.8-10.8)
--- NOTE | 2022-09-07 11:32 | XRay Report ---
XR chest 1V portable CLINICAL HISTORY: weakness TECHNIQUE: Single frontal radiograph of the chest was obtained. Comparison: Comparison is made to chest radiograph 08/25/2022 FINDINGS: No lines and tubes are seen. Cardiomegaly is noted. Prominence and cephalization of the vasculature i s seen. Lungs are underinflated. No evidence of pleural effusion or pneumothorax. IMPRESSION: Cardiomegaly and likely mild pulmonary edema. ACT 112: Negative or not required by law. Electronically signed by: Ad Delgado M.D. 09/07/2022 11:30 AM
--- NOTE | 2022-09-07 12:03 | CT Scan Report ---
CT head/brain wo con CLINICAL HISTORY: 42 years-old Male with Frequent falls, status post stroke, right leg weak. Acute s trokelike symptoms TECHNIQUE: Multiple axial CT images of the head were obtained without contrast. A dose lowering tech nique was utilized adhering to the principles of ALARA. CT DOSE: 2189.34 mGycm COMPARISON: Brain MRI 08/25/2022 FINDINGS: No acute intracranial hemorrhage, midline shift, intracranial mass, hydrocephalus, territorial ischem ia or abnormal extra-axial collection. Dolichoectasia with fusiform aneurysmal dilation of the basila r artery redemonstrated, measuring up to approximately 2.3 x 1.9 cm. The previously noted infarct of the left cerebral peduncle is not appreciated on today's study. Chronic right cerebellar infarct. Mil d ventriculomegaly is unchanged. The calvarium is intact. The paranasal sinuses, mastoid air cells, and middle ear cavities are clear . IMPRESSION: 1. No acute intracranial abnormality. 2. 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 3. Chronic right cerebellar infarct. 4. The previously described subcentimeter infarct within the left cerebral peduncle is not appreciate d by CT. ACT 112: Negative or not required by law. The above report was generated using voice recognition software. It may contain grammatical, syntax o r spelling errors. Electronically signed by: Arthur Braden M.D. 09/07/2022 12:01 PM
[2022-09-07 12:07] LABS: Alanine Aminotransferase 25 U/L (7-52); Albumin Globulin Ratio 1.1 (0.9-2); Alkaline Phosphatase 72 U/L (34-104); Anion Gap 8 (3-11); Aspartate Aminotransferase 15 U/L (13-39); BUN Creatinine Ratio 15.1 (10-20); Bilirubin,Total 0.4 mg/dl (0.2-1.0); Blood Urea Nitrogen 13 mg/dl (6-23); Calcium 9.7 mg/dl (8.5-10.1); Carbon Dioxide 29 mmol/L (21-32); Chloride 100 mmol/L (98-107); Est GFR (African American) 122.2 ml/min; Est GFR (Non-African American) 105.5 ml/min; Globulin 3.5 gm/dl (2.5-4.0); Glucose 107 mg/dl (70-99(Fasting)); Sodium 137 mmol/L (136-145); Total Protein 7.5 gm/dl (6.0-8.3)
[2022-09-07 14:17] LABS: Appearance Urine Clear (Clear); Bacteria Urine Automated Negative (Negative); Bilirubin Urine Negative (Negative); Blood Urine Negative (Negative); Color Urine Yellow; Epithelial Cell Urine Auto 0-5 /lpf (0-5); Glucose Urine UA Negative (Negative); Ketones Urine Trace (Negative); Leukocyte Esterase Urine Negative (Negative); Nitrite Urine Negative (Negative); Protein Urine 3+ (Negative); RBC Urine Automated 0-4 /hpf (0-4); Specific Gravity Urine 1.024 (1.000-1.030); Urobilinogen Urine Negative (Negative)
--- NOTE | 2022-09-07 14:17 | History & Physical Report ---
Date of Service September 07, 2022 Assessment & Plan (1) Recurrent falls: Plan: Pt with recent admission for second CVA. Evaluated by PT/OT that admission and outpatient services recommended. However, since discharge, pt has had progressive issues with balance, weakness, and now with 2 falls in the last 24 hours. At present, pt's home environment has multiple steps and patient is a high fall risk as determined by outpatient PT provider so it does not seem safe to discharge him back home without additional evaluation and services. Based on history, pt may benefit from short-term rehab since has not done well with current set of services. Repeat CT head today was stable. - Admit to [facility] due to recent falls, hx Mobitz type 1 second degree AV block - monitor for any arrhythmias that may be contributing although seems less likely. Pt has not yet had cardio follow-up for Holter - Fall precautions, aspiration precautions - PT/OT/Speech evaluations (2) Ambulatory dysfunction: (3) CVA (cerebral vascular accident): (4) HTN (hypertension): (5) Dyslipidemia: (6) Basilar artery aneurysm: (7) COPD (chronic obstructive pulmonary disease): (8) CAD (coronary artery disease): (9) Mobitz type 1 second degree AV block: (10) Nocturnal hypoxemia due to obesity: Plan: Will order noctural O2 while admitted - still needs to complete outpatient sleep study Plan Continue other home medications as appropriate Pt seen and reviewed with collaborating physician, Dr. Dillard. Plan of care discussed and as outlined above. Code Status: DNR/DNI DVT Prophylaxis: SCDs Jannie Gaytan PA-C History of Present Illness Chief Complaint: Falls Primary Care Provider: Esteban Tucker This is a 42 y/o male with a PMH of HTN, COPD, CAD, CVA x 2, dolichoectasia of basilar artery aneurysm, and tobacco use who is presenting to the ED today with recurrent falls. Pt was admitted to this facility 08/25-08/29/22 with a left cerebral peduncle infarct. Neurology recommended ASA/Plavix, high-dose statin, hypercoagulable work-up, and outpatient sleep study. He was also noted to have a 3.2 second pause on telemetry, seen by cardiology, likely due to second degree AV block, Mobitz I. Echo with bubble study showed no significant change from 2018. Nocturnal hypoxia study was positive so pt was discharged home with home O2 and was to f/u for outpatient sleep study. He was also to follow-up with cardiology and have outpatient Holter. Since discharge, pt has noted increasing generalized weakness. He continues to have difficulty with balance and has had two falls in the last 24 hours. Last night, he was sitting on the edge of the bathtub, lost his balance and fell in. This morning, he lost his balance coming into the house when he was going up the large front step and fell - hit his right knee. He denies LOC or hitting his head. His aunt is at the bedside and assists with the history. She notes that his speech continues to be garbled at times. He may have trouble with word-finding. He denies dysphagia. He is having trouble concentrating. He is going to outpatient PT but reports he is struggling, has been told he is a significant fall risk. He currently lives with his ex- and there are multiple stairs, including 10 stairs to get to the bathroom. He denies chest pain, palpitations, SOB, syncope, difficulties with urinarting or moving bowels. Appetite is good. His family's and his main concern is the weakness and falls. He is open to the possibility of short-term rehab if recommended. Allergies Allergy/AdvReac Type Severity Reaction Status Date / Time Penicillins Allergy Mild UNKNOWN Verified 08/25/22 16:45 oxycodone AdvReac Mild GI DISTRESS Verified 08/25/22 16:45 Home Medications Medication Instructions Recorded Confirmed Type acetaminophen 500 mg tablet 500 - 1,000 mg PO BID PRN Pain 11/25/18 09/07/22 History (Tylenol Extra Strength) furosemide 20 mg tablet 20 mg PO DAILY PRN Edema 08/25/22 09/07/22 History aspirin 81 mg tablet,delayed 81 mg PO DAILY #30 tabs 08/29/22 09/07/22 Rx release atorvastatin 40 mg tablet 80 mg PO QAM #30 tabs 08/29/22 09/07/22 Rx carvedilol 3.125 mg tablet 3.125 mg PO BID #60 tabs 08/29/22 09/07/22 Rx clopidogrel 75 mg tablet 75 mg PO QAM #30 tabs 08/29/22 09/07/22 Rx Past Med/Surg History Medical History Basilar artery aneurysm CAD (coronary artery disease) COPD (chronic obstructive pulmonary disease) CVA (cerebral vascular accident) Dyslipidemia Fracture of wrist (10/11/12) Fx shaft fibula-closed (10/11/12) HTN (hypertension) 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) Tobacco use Surgical History History of arthroscopy of shoulder History of umbilical hernia repair Family History Father Coronary heart disease OR age 50's Hypertension Grandfather (Paternal) Coronary heart disease Social History Smoking Status: Never smoker Tobacco Type: Cigarettes Cigarettes Per Day: 2-3ppd x 30 years; Second Hand Exposure: No; Do You Dip or Chew Tobacco: No; Tobacco Cessation Education Requested by Patient: No Hx Alcohol Use: No Hx Substance Use: No Preferred Language: Mauritanian Communication Ability: Effective Website/Blog Editor Required: No Beliefs That Will Affect Care: None marital status: Single Current Living Situation: Family Current Living Situation Comment: pt lives with someone, not [facility] business current occupational status: employed Other Information That Helps Us Care for You: No Feels Safe at Home: Yes Safety Concerns: Feels Safe At This Time Assistive Devices: None Review of Systems Review of Systems: All systems reviewed & are unremarkable except as noted in HPI & below Constitutional: + fatigue and + weakness; no fever, no chills and no anorexia Eyes: no diplopia and no worsening vision Ear, Nose, Mouth, Throat: no sore throat and no dysphagia Respiratory: no cough and no dyspnea Cardiovascular: no chest pain, no palpitations, no syncope and no edema Gastrointestinal: no abdominal pain, no nausea, no vomiting and no diarrhea/loose stools Genitourinary: no dysuria or no hematuria Musculoskeletal: + joint pain (right knee) Integumentary: no yellowing of the skin Neurologic: as per Subjective / HPI, + unsteadiness, + falls and + abnormal speech Physical Exam Constitutional: well developed and well nourished; no acute distress Eyes: PERRL, conjunctivae normal, anicteric sclerae some trouble cooperating with EOMs but overall appear intact without significant nystagmus ENMT: external ear and nose normal, oropharynx normal Neck: trachea midline Respiratory: no respiratory distress and no labored breathing Auscultation: lungs clear to auscultation bilaterally; no rales, no rhonchi and no wheezes Cardiovascular: Rate/Rhythm: regular rate and regular rhythm Vessels: posterior tibial pulses present and radial pulses present Extremities: no edema Gastrointestinal (Abdomen): Inspection/Auscultation: normal bowel sounds; abdomen not distended Percussion/Palpation: abdomen soft; abdomen nontender Musculoskeletal: right knee tender around patella, mild effusion, no significant erythema or ecchymosis Skin: a few scabbed areas on LE Neurologic: moves all extremities Cranial Nerves: PERRL, tongue midline and able to rotate head bilaterally Coordination: + abnormal [id number] test (slowed, some difficulty with locating finger) and + abnormal rapid alternating movements (unable to complete - significantly slowing) Speech is slow, mildly dysarthric at times Psychiatric: A+Ox3, euthymic affect Results & Data Results & Data ([facility]) Vital Signs (Past 12 Hours) Vital Signs Temp Pulse Resp BP Pulse Ox O2 Del Method 09/07/22 14:00 100 H 17 09/07/22 14:00 108/84 09/07/22 13:30 95 H 15 09/07/22 13:30 108/80 09/07/22 13:00 92 H 23 09/07/22 13:00 129/78 09/07/22 12:30 90 23 09/07/22 12:30 138/81 09/07/22 12:00 94 H 20 129/81 09/07/22 11:32 99 H 22 09/07/22 11:04 103 H 22 95 Room Air 09/07/22 09:35 36.7 C 98 H 20 167/95 H 95 Room Air Laboratory Results Laboratory Results - last 24 hr 09/07/22 09/07/22 09/07/22 11:20 11:24 11:24 WBC 11.84 H RBC 5.55 Hgb 17.8 Hct 52.3 H MCV 94.2 MCH 32.1 MCHC 34.0 RDW Std Deviation 49.1 H RDW Coeff of Krupa 14.1 Plt Count 308 MPV 9.9 Immature Gran % (Auto) 0.4 Neut % (Auto) 58.5 Lymph % (Auto) 31.0 [place] % (Auto) 7.9 Eos % (Auto) 1.8 Baso % (Auto) 0.4 Neut # (Auto) 6.92 H Lymph # (Auto) 3.67 H [place] # (Auto) 0.94 H Eos # (Auto) 0.21 Baso # (Auto) 0.05 Immature Gran # (Auto) 0.05 H Sodium 137 Potassium 4.0 Chloride 100 Carbon Dioxide 29 Anion Gap 8 BUN 13 Creatinine 0.86 Est Cr Clr Drug Dosing Not Reportable Est GFR ( Amer) 122.2 Est GFR (Non-Af Amer) 105.5 BUN/Creatinine Ratio 15.1 Glucose 107 H Calcium 9.7 Total Bilirubin 0.4 AST 15 ALT 25 Alkaline Phosphatase 72 Troponin I High Sens 4.0 Total Protein 7.5 Albumin 4.0 Globulin 3.5 Albumin/Globulin Ratio 1.1 TSH Urine Color Urine Appearance Urine pH Ur Specific [place] Urine Protein Urine Glucose (UA) Urine Ketones Urine Blood Urine Nitrite Urine Bilirubin Urine Urobilinogen Ur Leukocyte Esterase Urine WBC (Auto) Urine RBC (Auto) U Hyaline Cast (Auto) U Epithel Cells (Auto) Urine Bacteria (Auto) SARS-CoV-2, RNA, NAAT NEGATIVE 09/07/22 09/07/22 11:24 13:46 WBC RBC Hgb Hct MCV MCH MCHC RDW Std Deviation RDW Coeff of Krupa Plt Count MPV Immature Gran % (Auto) Neut % (Auto) Lymph % (Auto) [place] % (Auto) Eos % (Auto) Baso % (Auto) Neut # (Auto) Lymph # (Auto) [place] # (Auto) Eos # (Auto) Baso # (Auto) Immature Gran # (Auto) Sodium Potassium Chloride Carbon Dioxide Anion Gap BUN Creatinine Est Cr Clr Drug Dosing Est GFR ( Amer) Est GFR (Non-Af Amer) BUN/Creatinine Ratio Glucose Calcium Total Bilirubin AST ALT Alkaline Phosphatase Troponin I High Sens Total Protein Albumin Globulin Albumin/Globulin Ratio TSH 2.721 Urine Color Yellow Urine Appearance Clear Urine pH 5.0 Ur Specific [place] 1.024 Urine Protein 3+ H Urine Glucose (UA) Negative Urine Ketones Trace H Urine Blood Negative Urine Nitrite Negative Urine Bilirubin Negative Urine Urobilinogen Negative Ur Leukocyte Esterase Negative Urine WBC (Auto) 1-5 Urine RBC (Auto) 0-4 U Hyaline Cast (Auto) 1-5 U Epithel Cells (Auto) 0-5 Urine Bacteria (Auto) Negative SARS-CoV-2, RNA, NAAT Diagnostic Findings Head CT 09/07/22 - IMPRESSION:1. No acute intracranial abnormality. 2. 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 3. Chronic right cerebellar infarct. 4. The previously described subcentimeter infarct within the left cerebral peduncle is not appreciated by CT. Chest X-ray 09/07/22 - IMPRESSION: Cardiomegaly and likely mild pulmonary edema. Right Knee X-ray 09/07/22 - IMPRESSION: Mild soft tissue swelling with no acute bony abnormality identified. Supervising Physician Co-Signing Physician Notes I have seen and examined the patient and have discussed the case with the provider above. I agree with the assessment and plan as stated with the following exceptions. The patient is a 42-year-old man with a recent stroke and recent hospital stay in August who presents with recurrent falls and progressive issues with balance weakness at home. Repeat head CT was stable and there was no other underlying cause for his regression. Per physical therapy notes at discharge last admission he was ambulating independently without issue. We will repeat therapy evaluations here and patient may benefit from a short stay in rehab. He did report falling on his knee this evening and states there is a lot of pain to the point he cannot bend it to demonstrate a range of motion. A knee x-ray was performed revealing mild soft tissue swelling with no acute bony abnormality present. A chest x-ray revealed possible pulmonary edema. Lab work was unremarkable except for a mild elevation in white count to 11. CMP was within normal limits. Thyroid is within normal limits. There is no evidence of urinary tract infection and no evidence of COVID. On physical exam he is obese but in no acute distress. There is some evidence o f pressured speech which may also be slight intellectual delay versus post stroke effects. He is mentating clearly and is oriented. As above he is unable to move his right knee otherwise he is able to sit up independently and move around the bed with ease. Heart and lung exam is unremarkable there is no gross focal neurologic deficits. Overall this is a man who is young with a history of stroke who is now experiencing worsening balance issues and recurrent falls at home. The toes become a challenge for the family and he is going to be reevaluated by PT and OT for consideration for possible short stay in rehab. Additionally, will continue scheduled Tylenol, rest, ice and elevation for his knee pain. DO Nishant. (1) CVA (cerebral vascular accident) CVA mechanism: unspecified Qualified Code(s): I63.9 - Cerebral infarction, unspecified
[2022-09-07] MEDS ORDERED: ACETAMINOPHEN 325 MG TAB PO PRN (17:27)
[2022-09-07] MEDS: carvediloL 3.125 MG TAB PO SCH (20:54)
[2022-09-07] MEDS: ACETAMINOPHEN 500 MG TAB PO SCH (23:11)
--- NOTE | 2022-09-08 05:54 | Electrocardiogram Report ---
Test Reason : Blood Pressure : / mmHG Vent. Rate : 100 BPM Atrial Rate : 100 BPM P-R Int : 150 ms QRS Dur : 100 ms QT Int : 346 ms P-R-T Axes : 018 032 028 degrees QTc Int : 446 ms Normal sinus rhythm Poor R wave progression, consider anterior DE vs. lead placement vs. LVH When compared with ECG of 28-AUG-2022 08:55, No significant change Confirmed by Jimenez Pike ([id number]) on 09/08/2022 5:54:03 AM Referred By: Esteban Tucker Confirmed By:Jimenez Pike
[2022-09-08] MEDS: ACETAMINOPHEN 500 MG TAB PO SCH ×2 (06:25→11:29)
[2022-09-08] MEDS: ATORVASTATIN 40 MG TAB PO SCH (08:03)
[2022-09-08] MEDS: ASPIRIN 81 MG ECTAB PO SCH (08:03)
[2022-09-08] MEDS: CLOPIDOGREL BISULFATE 75 MG TAB PO SCH (08:03)
[2022-09-08] MEDS: carvediloL 3.125 MG TAB PO SCH ×2 (08:03→20:48)
--- NOTE | 2022-09-08 14:48 | Hospitalist Progress Note ---
Date of Service September 08, 2022 Assessment & Plan (1) Recurrent falls: Plan: Pt with recent admission for second CVA. Evaluated by PT/OT that admission and outpatient services recommended. However, since discharge, pt has had progressive issues with balance, weakness, and now with 2 falls in the last 24 hours. At present, pt's home environment has multiple steps and patient is a high fall risk as determined by outpatient PT provider so it does not seem safe to discharge him back home without additional evaluation and services. Based on history, pt may benefit from short-term rehab since has not done well with current set of services. Repeat CT head today was stable. - Admit to med [facility] due to recent falls, hx Mobitz type 1 second degree AV block - monitor for any arrhythmias that may be contributing although seems less likely. Pt has not yet had cardio follow-up for Holter - Fall precautions, aspiration precautions - PT/OT/Speech evaluations -Medically stable and has been getting PT and OT evaluation for placement (2) Ambulatory dysfunction: Plan: Secondary to recent CVA Will need short-term rehab (3) CVA (cerebral vascular accident): (4) HTN (hypertension): Plan: Blood pressure is controlled (5) Dyslipidemia: Plan: Continue statin (6) Basilar artery aneurysm: (7) COPD (chronic obstructive pulmonary disease): Plan: No acute symptoms (8) CAD (coronary artery disease): Plan: Denies any cardiac symptoms (9) Mobitz type 1 second degree AV block: (10) Nocturnal hypoxemia due to obesity: Plan: Will order noctural O2 while admitted - still needs to complete outpatient sleep study Plan Continue other home medications as appropriate Pt seen and reviewed with collaborating physician, Dr. Dillard. Plan of care discussed and as outlined above. Code Status: DNR/DNI DVT Prophylaxis: SCDs Admission and Anticipated Discharge Date Admission Date: September 07, 2022 Subjective 09/08/2022 The patient was seen and examined in telemetry unit He has been feeling much better but complains some pain in the left leg and knee joint He denies any other symptoms and has been getting physical therapy Review of Systems Review of Systems: All systems reviewed and are unremarkable except as noted below Physical Exam Physical Exam: Lying in bed Constitutional: well developed, well nourished, + ill appearing and + obese Eyes: PERRL, conjunctivae normal, anicteric sclerae ENMT: external ear and nose normal, oropharynx normal Neck: trachea midline, no thyromegaly Respiratory: no respiratory distress Auscultation: lungs clear to auscultation bilaterally Cardiovascular: Rate/Rhythm: regular rate and regular rhythm; not tachycardic Heart Sounds: normal S1 and normal S2; no murmur Extremities: + edema (Trace edema bilateral) Gastrointestinal (Abdomen): Inspection/Auscultation: normal bowel sounds; abdomen not distended Percussion/Palpation: abdomen soft; abdomen nontender Musculoskeletal: Painful movement of the left lower extremity without any evidence of fracture Neurologic: Alert, awake and oriented x3 Results & Data Results & Data ([facility]) Vital Signs (Past 12 Hours) Vital Signs Temp Pulse Pulse Resp BP Pulse Ox O2 Del Method 09/08/22 11:39 36.8 C 93 H 20 112/84 92 Room Air 09/08/22 09:49 Room Air 09/08/22 09:48 99 H 19 140/85 94 Room Air 09/08/22 08:26 36.9 C 96 H 22 148/95 H 95 Room Air 09/08/22 07:53 98 H 09/08/22 03:18 37.2 C 109 H 20 130/86 95 Nasal Cannula O2 Flow Rate 09/08/22 11:39 09/08/22 09:49 09/08/22 09:48 09/08/22 08:26 09/08/22 07:53 09/08/22 03:18 4 Medications Administered Current Inpatient Medications Acetaminophen (Acetaminophen 500 Mg Tab) 1,000 mg PO Q8 [facility]HUSHBU Stop: 10/07/22 22:29 Last Admin: 09/08/22 11:29 Dose: Not Given Aspirin (Aspirin 81 Mg Ectab) 81 mg PO DAILY [facility]BU Stop: 10/08/22 08:59 Last Admin: 09/08/22 08:03 Dose: 81 mg Atorvastatin Calcium (Atorvastatin 40 Mg Tab) 80 mg PO QAM [facility]BU Stop: 10/08/22 08:59 Last Admin: 09/08/22 08:03 Dose: 80 mg Carvedilol (Carvedilol 3.125 Mg Tab) 3.125 mg PO BID [facility]USHBU Stop: 10/07/22 20:59 Last Admin: 09/08/22 08:03 Dose: 3.125 mg Clopidogrel Bisulfate (Clopidogrel Bisulfate 75 Mg Tab) 75 mg PO QAM [facility] Stop: 10/08/22 08:59 Last Admin: 09/08/22 08:03 Dose: 75 mg (1) CVA (cerebral vascular accident) CVA mechanism: unspecified Qualified Code(s): I63.9 - Cerebral infarction, unspecified
[2022-09-09] MEDS: ACETAMINOPHEN 500 MG TAB PO SCH ×3 (00:18→13:33)
[2022-09-09] MEDS: ATORVASTATIN 40 MG TAB PO SCH (09:38)
[2022-09-09] MEDS: ASPIRIN 81 MG ECTAB PO SCH (09:38)
[2022-09-09] MEDS: carvediloL 3.125 MG TAB PO SCH (09:38)
[2022-09-09] MEDS: CLOPIDOGREL BISULFATE 75 MG TAB PO SCH (09:38)
--- NOTE | 2022-09-09 13:52 | Hospitalist Progress Note ---
Date of Service September 09, 2022 Assessment & Plan (1) Recurrent falls: Plan: Pt with recent admission for second CVA. Evaluated by PT/OT that admission and outpatient services recommended. However, since discharge, pt has had progressive issues with balance, weakness, and now with 2 falls in the last 24 hours. At present, pt's home environment has multiple steps and patient is a high fall risk as determined by outpatient PT provider so it does not seem safe to discharge him back home without additional evaluation and services. Based on history, pt may benefit from short-term rehab since has not done well with current set of services. Repeat CT head today was stable. - Admit to [facility] due to recent falls, hx Mobitz type 1 second degree AV block - monitor for any arrhythmias that may be contributing although seems less likely. Pt has not yet had cardio follow-up for Holter - Fall precautions, aspiration precautions -Appreciate PT and OT evaluation and recommendation for rehab -His right-sided weakness has been improving as of today 09/09/2022 -He remains medically stable and denies any other significant symptoms -He will be discharged to [facility] this afternoon (2) Ambulatory dysfunction: Plan: Secondary to recent CVA Will need short-term rehab PT evaluation done during this admission and recommended rehab (3) CVA (cerebral vascular accident): Plan: Recent CT scan of the head did not show dolichoectasia with fusiform aneurysmal dilatation of the basilar artery stable as before bradycardia, chronic right cerebellar infarct and previously described subcentimeter infarct within the left cerebral parental is not appreciated by CT Remains right-sided weakness and as per PT requires short-term rehab (4) HTN (hypertension): Plan: Blood pressure is controlled (5) Dyslipidemia: Plan: Continue statin (6) Basilar artery aneurysm: (7) COPD (chronic obstructive pulmonary disease): Plan: No acute symptoms (8) CAD (coronary artery disease): Plan: Denies any cardiac symptoms (9) Mobitz type 1 second degree AV block: (10) Nocturnal hypoxemia due to obesity: Plan: Will order noctural O2 while admitted - still needs to complete outpatient sleep study Plan Continue other home medications as appropriate Pt seen and reviewed with collaborating physician, Dr. Dillard. Plan of care discussed and as outlined above. Code Status: DNR/DNI DVT Prophylaxis: SCDs Will be discharged to [facility] this afternoon Admission and Anticipated Discharge Date Admission Date: September 07, 2022 Subjective 09/08/2022 The patient was seen and examined in telemetry unit He has been feeling much better but complains some pain in the Right leg and knee joint He denies any other symptoms and has been getting physical therapy 09/09/2022 The patient was seen and examined in telemetry unit He has been feeling much better His right -sided weakness is much improved and he denies any other symptoms Review of Systems Review of Systems: All systems reviewed and are unremarkable except as noted below Constitutional: + fatigue and + weakness (Left-sided weakness is improved); no fever and no chills Eyes: no diplopia and no worsening vision Ear, Nose, Mouth, Throat: no sore throat and no dysphagia Respiratory: no cough and no dyspnea Cardiovascular: no chest pain, no palpitations, no syncope and no edema Gastrointestinal: no abdominal pain, no nausea, no vomiting and no diarrhea/loose stools Genitourinary: no dysuria or no hematuria Musculoskeletal: + joint pain (right knee-improved a lot) Integumentary: no yellowing of the skin Neurologic: + unsteadiness Physical Exam Physical Exam: Lying in bed without any acute distress Constitutional: well developed, well nourished, + ill appearing and + obese Eyes: PERRL, conjunctivae normal, anicteric sclerae ENMT: external ear and nose normal, oropharynx normal Neck: trachea midline, no thyromegaly Respiratory: no respiratory distress Auscultation: lungs clear to auscultation bilaterally Cardiovascular: Rate/Rhythm: regular rate and regular rhythm; not tachycardic Heart Sounds: normal S1 and normal S2; no murmur Extremities: + edema (Trace edema bilateral) Gastrointestinal (Abdomen): Inspection/Auscultation: normal bowel sounds; abdomen not distended Percussion/Palpation: abdomen soft; abdomen nontender Musculoskeletal: No acute arthritis involving any joint Neurologic: Alert, awake and oriented x3. Minimal weakness involving the right side Psychiatric: A+Ox3, euthymic affect Lymphatic: no cervical or axillary lymphadenopathy Results & Data Results & Data ([facility]) Vital Signs (Past 12 Hours) Vital Signs Temp Pulse Pulse Resp BP Pulse Ox O2 Del Method 09/09/22 11:56 36.6 C 90 18 137/85 93 Room Air 09/09/22 08:00 Room Air 09/09/22 08:00 79 09/09/22 08:51 36.4 C L 86 18 162/95 H 90 Room Air 09/09/22 02:50 36.8 C 103 H 18 161/81 H 96 Nasal Cannula O2 Flow Rate 09/09/22 11:56 09/09/22 08:00 09/09/22 08:00 09/09/22 08:51 09/09/22 02:50 3 Medications Administered Current Inpatient Medications Acetaminophen (Acetaminophen 500 Mg Tab) 1,000 mg PO Q8 [facility]BU Stop: 10/07/22 22:29 Last Admin: 09/09/22 13:33 Dose: 1,000 mg Aspirin (Aspirin 81 Mg Ectab) 81 mg PO DAILY [facility] Stop: 10/08/22 08:59 Last Admin: 09/09/22 09:38 Dose: 81 mg Atorvastatin Calcium (Atorvastatin 40 Mg Tab) 80 mg PO QAM [facility]BU Stop: 10/08/22 08:59 Last Admin: 09/09/22 09:38 Dose: 80 mg Carvedilol (Carvedilol 3.125 Mg Tab) 3.125 mg PO BID [facility]BU Stop: 10/07/22 20:59 Last Admin: 09/09/22 09:38 Dose: 3.125 mg Clopidogrel Bisulfate (Clopidogrel Bisulfate 75 Mg Tab) 75 mg PO QAM [facility] Stop: 10/08/22 08:59 Last Admin: 09/09/22 09:38 Dose: 75 mg (1) CVA (cerebral vascular accident) CVA mechanism: unspecified Qualified Code(s): I63.9 - Cerebral infarction, unspecified
--- NOTE | 2022-09-10 07:34 | Discharge Summary ---
Date of Service September 10, 2022 Admission HPI Per Admitting Provider This is a 42 y/o male with a PMH of HTN, COPD, CAD, CVA x 2, dolichoectasia of basilar artery aneurysm, and tobacco use who is presenting to the ED today with recurrent falls. Pt was admitted to this facility 08/25-08/29/22 with a left cerebral peduncle infarct. Neurology recommended ASA/Plavix, high-dose statin, hypercoagulable work-up, and outpatient sleep study. He was also noted to have a 3.2 second pause on telemetry, seen by cardiology, likely due to second degree AV block, Mobitz I. Echo with bubble study showed no significant change from 2018. Nocturnal hypoxia study was positive so pt was discharged home with home O2 and was to f/u for outpatient sleep study. He was also to follow-up with cardiology and have outpatient Holter. Since discharge, pt has noted increasing generalized weakness. He continues to have difficulty with balance and has had two falls in the last 24 hours. Last night, he was sitting on the edge of the bathtub, lost his balance and fell in. This morning, he lost his balance coming into the house when he was going up the large front step and fell - hit his right knee. He denies LOC or hitting his head. His aunt is at the bedside and assists with the history. She notes that his speech continues to be garbled at times. He may have trouble with word-finding. He denies dysphagia. He is having trouble concentrating. He is going to outpatient PT but reports he is struggling, has been told he is a significant fall risk. He currently lives with his ex- and there are multiple stairs, including 10 stairs to get to the bathroom. He denies chest pain, palpitations, SOB, syncope, difficulties with urinarting or moving bowels. Appetite is good. His family's and his main concern is the weakness and falls. He is open to the possibility of short-term rehab if recommended. Admission Exam Per Admitting Provider Constitutional: well developed and well nourished; no acute distress Eyes: PERRL, conjunctivae normal, anicteric sclerae some trouble cooperating with EOMs but overall appear intact without significant nystagmus ENMT: external ear and nose normal, oropharynx normal Neck: trachea midline Respiratory: no respiratory distress and no labored breathing Auscultation: lungs clear to auscultation bilaterally; no rales, no rhonchi and no wheezes Cardiovascular: Rate/Rhythm: regular rate and regular rhythm Vessels: posterior tibial pulses present and radial pulses present Extremities: no edema Gastrointestinal (Abdomen): Inspection/Auscultation: normal bowel sounds; abdomen not distended Percussion/Palpation: abdomen soft; abdomen nontender Musculoskeletal: right knee tender around patella, mild effusion, no significant erythema or ecchymosis Skin: a few scabbed areas on LE Neurologic: moves all extremities Cranial Nerves: PERRL, tongue midline and able to rotate head bilaterally Coordination: + abnormal [id number] test (slowed, some difficulty with locating finger) and + abnormal rapid alternating movements (unable to complete - significantly slowing) Speech is slow, mildly dysarthric at times Psychiatric: A+Ox3, euthymic affect Principal Diagnosis Recurrent falls secondary to ambulatory dysfunction, 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, hypertension, COPD Discharge Exam Lying in bed without any acute distress Constitutional well developed, well nourished, + ill appearing and + obese Eyes PERRL, conjunctivae normal, anicteric sclerae ENMT external ear and nose normal, oropharynx normal Neck trachea midline, no thyromegaly Respiratory no respiratory distress Auscultation: lungs clear to auscultation bilaterally Cardiovascular Rate/Rhythm: regular rate and regular rhythm; not tachycardic Heart Sounds: normal S1 and normal S2; no murmur Extremities: + edema (Trace edema bilateral) Gastrointestinal (Abdomen) Inspection/Auscultation: normal bowel sounds; abdomen not distended Percussion/Palpation: abdomen soft; abdomen nontender Psychiatric A+Ox3, euthymic affect Lymphatic no cervical or axillary lymphadenopathy Discharge Data Allergies Allergy/AdvReac Type Severity Reaction Status Date / Time Penicillins Allergy Mild UNKNOWN Verified 08/25/22 16:45 oxycodone AdvReac Mild GI DISTRESS Verified 08/25/22 16:45 Consultations 09/07/22 13:49 ED Decision to Admit Stat Ordered Studies 09/07/22 11:04 CT head/brain wo con Stat Hospital Course (1) Recurrent falls: Pt with recent admission for second CVA. Evaluated by PT/OT that admission and outpatient services recommended. However, since discharge, pt has had progressive issues with balance, weakness, and now with 2 falls in the last 24 hours. At present, pt's home environment has multiple steps and patient is a high fall risk as determined by outpatient PT provider so it does not seem safe to discharge him back home without additional evaluation and services. Based on history, pt may benefit from short-term rehab since has not done well with current set of services. Repeat CT head today was stable. - Admit to [facility] due to recent falls, hx Mobitz type 1 second degree AV block - monitor for any arrhythmias that may be contributing although seems less likely. Pt has not yet had cardio follow-up for Holter - Fall precautions, aspiration precautions -Appreciate PT and OT evaluation and recommendation for rehab -His right-sided weakness has been improving as of today 09/09/2022 -He remains medically stable and denies any other significant symptoms -He will be discharged to [facility] this afternoon (2) Ambulatory dysfunction: Secondary to recent CVA Will need short-term rehab PT evaluation done during this admission and recommended rehab (3) CVA (cerebral vascular accident): Recent CT scan of the head did not show dolichoectasia with fusiform aneurysmal dilatation of the basilar artery stable as before bradycardia, chronic right cerebellar infarct and previously described subcentimeter infarct within the left cerebral parental is not appreciated by CT Remains right-sided weakness and as per PT requires short-term rehab (4) HTN (hypertension): Blood pressure is controlled (5) Dyslipidemia: Continue statin (6) Basilar artery aneurysm: (7) COPD (chronic obstructive pulmonary disease): No acute symptoms (8) CAD (coronary artery disease): Denies any cardiac symptoms (9) Mobitz type 1 second degree AV block: (10) Nocturnal hypoxemia due to obesity: Will order noctural O2 while admitted - still needs to complete outpatient sleep study Plan Continue other home medications as appropriate Pt seen and reviewed with collaborating physician, Dr. Dillard. Plan of care discussed and as outlined above. 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, hypertension, COPD Condition on Discharge: Fair Activity: As commented below Activity Comment: Will need continued physical therapy Non-emergency contact: Primary Care Provider Call non-emergency contact if: you have any medication questions and your symptoms worsen Follow-up/Referrals: Esteban Tucker, PAHoneyC [Primary Care Provider] - (Please make an appointment with your primary care provider within 7 days of discharge from the facility) Diet: Heart Healthy Addtl Attending Provider Instructions: Please take precautions to avoid falls Continue physical therapy as advised Take your medications as advised Please give appointment with your healthcare providers Pending Studies at Discharge: No Stand-Alone Forms: My [facility] Skilled Items Patient informed of condition?: Yes DNR: Yes Discharge Level of Care: Acute rehab Communicable Disease: No Discharge Prognosis: Improving Lines: None Urinary Catheter: No Medications and DC Order Prescriptions: Continued acetaminophen [Tylenol Extra Strength] 500 mg Tablet 500 - 1,000 mg PO BID PRN (Reason: Pain) furosemide 20 mg tablet 20 mg PO DAILY PRN (Reason: Edema) clopidogrel 75 mg Tablet 75 mg PO QAM Qty: 30 0RF atorvastatin 40 mg Tablet 80 mg PO QAM Qty: 30 0RF carvedilol 3.125 mg Tablet 3.125 mg PO BID Qty: 60 0RF aspirin 81 mg Tablet,Delayed Release (Dr/Ec) 81 mg PO DAILY Qty: 30 0RF Discharge Orders: Discharge Order (Routine); Ordered 09/09/22 Ordered By: Dawson Womack Admission Data Admit Date/Time: 09/07/22 14:46 Attending Provider: Dawson Womack Admit Provider: Katie Dillard Primary Care Provider: Esteban Tucker Other Providers: Katie Dillard ; [facility] Other Interventions: Discharge Summary Assessment (RN) Last Done: 09/09/22 14:13
== END 2022-09-09 18:06 | DRG 57 ==
LOC: ED 09:26 → SUATTDRO 14:46 → EDINP 14:46 → 4W 21:26

== ENCOUNTER 2023-03-03 19:35 | Observation (INO) ==
--- NOTE | 2023-03-03 19:57 | Emergency Department Note ---
Impression & Plan TIA (transient ischemic attack), Slurred speech ED Provider Note NAME: SUNSHINE CHERRY AGE: 42 SEX: M : 1980 ARRIVES VIA: Walk-In INFORMANT: Patient ED PROVIDER(S): William Vogel DO CHIEF COMPLAINT: slurred speech and left leg weakness HPI: Patient is a 42-year-old male with PMH of HTN, COPD, CAD, CVA x 2, dolichoectasia of basilar artery aneurysm, and tobacco who presents to the ER for left leg weakness and slurred speech which started last night. Denies any headache or change in vision. No chest pain or shortness of breath. He has been having trouble walking with the weakness in the left leg. Denies any dysuria, urgency, or frequency. No other exacerbating or remitting factors. PAST MEDICAL HISTORY:See Below PAST SURGICAL HISTORY:See Below FAMILY HISTORY:See Below SOCIAL HISTORY:See Below HOME MEDICATIONS:See Below ALLERGIES:See Below VITALS:See Below PHYSICAL EXAMINATION: GENERAL: Sitting up in bed, alert, well appearing, well nourished, no distress, non-toxic EYE EXAM: normal conjunctiva. PERRL and EOM's intact. OROPHARYNX: no exudate, no erythema, lips, buccal mucosa, and tongue normal and mucous membranes are moist NECK: supple, no nuchal rigidity, no adenopathy, non-tender LUNGS: Clear to auscultation. Normal chest wall mechanics HEART: no murmurs, S1 normal and S2 normal ABDOMEN: abdomen soft, non-tender, normo-active bowel sounds, no masses, no rebound or guarding. BACK: Back is symmetrical on inspection and there is no deformity, no midline tenderness, no CVA tenderness. SKIN: no rashes and no bruising UPPER EXTREMITIES: upper extremities are grossly normal. LOWER EXTREMITIES: No pitting edema. NEURO EXAM: Normal sensorium, cranial nerves II-XII intact, slurred speech, slight weakness in the left lower extremity and left upper extremity. Pain to nose intact. MEDICAL DECISION MAKING: Patient is a 42-year-old male who presents ER for above-stated complaint. IV was established blood work is obtained. External records reviewed. Labs show no significant leukocytosis or anemia. INR unremarkable. BMP with LFTs bilirubin was unremarkable. Troponin was negative. COVID-negative. Does have obvious slurred speech. Unstable slightly weaker than right although the patient notes that this is normal. Left leg was also slightly weaker. Symptoms started greater than [address] angios of the head and neck were negative. Not a TNK candidate. Patient was updated bedside. Discussed with the hospitalist for further evaluation management and treatment. Triage Nursing notes reviewed. Limited review of prior medical records performed Vital Signs: reviewed and remarkable for HTN Differential diagnosis: Differential Diagnosis includes but is not limited to ischemic Stroke, hemorrhagic stroke, bells palsy, mass, neoplasm, migraine headache, seizure, subarachnoid hemorrhage, TIA, and transient global amnesia. ER treatment provided: See below Diagnostics interpreted by me include EKG and cardiac monitoring as listed below: -Cardiac Monitoring: An order was placed for continuous cardiac monitoring. The monitor shows a rate of 92 with sinus rhythm. -ECG: Sinus rhythm rate of 90 Normal axis No PVCs QTc 447 -Laboratory studies:Interpreted by me as stated above in MDM and shown below. Imaging studies: Xrays: As interpreted by me:none CTs show: CT of the head per my read shows no obvious bleed CT angio of the head and neck were negative per radiology Consultation(s): As described in MDM discussed with care managers in the hospitalist for further evaluation management treatment Dr. Lagunas Procedures:none Critical Care: None Past Med/Surg History Medical History Basilar artery aneurysm CAD (coronary artery disease) COPD (chronic obstructive pulmonary disease) CVA (cerebral vascular accident) Dyslipidemia Fracture of wrist (10/11/12) Fx shaft fibula-closed (10/11/12) HTN (hypertension) 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) Tobacco use Surgical History History of arthroscopy of shoulder History of umbilical hernia repair Family History Father Coronary heart disease [place] age 50's Hypertension Grandfather (Paternal) Coronary heart disease Social History Smoking Status: Current every day smoker Tobacco Type: Cigarettes Cigarettes Per Day: 2-3ppd x 30 years; Second Hand Exposure: No; Do You Dip or Chew Tobacco: No; Hx Alcohol Use: No Hx Substance Use: No Preferred Language: [place] Communication Ability: Effective 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 Beliefs That Will Affect Care: None marital status: Single Current Living Situation: Family Current Living Situation Comment: pt lives with someone, not [facility] business current occupational status: employed Feels Safe at Home: Yes Assistive Devices: None Allergies Allergies Allergy/AdvReac Type Severity Reaction Status Date / Time Penicillins Allergy Mild UNKNOWN Verified 03/03/23 21:42 oxycodone AdvReac Mild GI DISTRESS Verified 03/03/23 21:42 Home Meds Home Medications Medication Instructions Recorded Confirmed furosemide 20 mg tablet 20 mg PO 3XWK PRN Edema 08/25/22 03/03/23 carvedilol 6.25 mg tablet 6.25 mg PO BID 03/03/23 03/03/23 lisinopril 10 mg tablet 10 mg PO DAILY 03/03/23 03/03/23 Previous Rx's Medication Instructions Recorded aspirin 81 mg tablet,delayed 81 mg PO DAILY #30 tabs 08/29/22 release atorvastatin 40 mg tablet 80 mg PO QAM #30 tabs 08/29/22 clopidogrel 75 mg tablet 75 mg PO QAM #30 tabs 08/29/22 Results & Data (ED) Vital Signs Vital Signs - 24 hr 03/03/23 19:36 03/03/23 20:15 03/03/23 20:15 Temperature 36.8 C Temperature Source Temporal Artery Scan Pulse Rate 98 H 92 H 93 H Respiratory Rate 20 18 Respiratory Effort / Characteristics Non-Labored Spontaneous Respiratory Depth Normal Blood Pressure 163/95 H 160/87 H Blood Pressure Mean 117 111 Pulse Oximetry 93 93 Oxygen Delivery Method Room Air Room Air Sepsis Recent Fever Within 48 Hours No Sepsis New/Unexplained Change in Mental Status No Sepsis Action Taken by Nursing No Action Required 03/03/23 21:45 03/03/23 22:00 Temperature Temperature Source Pulse Rate 89 86 Respiratory Rate 20 22 Respiratory Effort / Characteristics Respiratory Depth Blood Pressure 151/102 H 135/104 H Blood Pressure Mean 118 114 Pulse Oximetry 94 94 Oxygen Delivery Method Room Air Room Air Sepsis Recent Fever Within 48 Hours Sepsis New/Unexplained Change in Mental Status Sepsis Action Taken by Nursing Laboratory Data 03/03/23 19:54 03/03/23 19:54 Lab Results 03/03/23 03/03/23 03/03/23 Range/Units 19:54 19:54 19:54 WBC 9.69 (4.8-10.8) K/ul RBC 5.27 (4.70-6.10) M/uL Hgb 16.8 (14.0-18.0) g/dl Hct 49.7 (42.0-52.0) % MCV 94.3 (80.0-100.0) fL MCH 31.9 (25.0-34.0) pg MCHC 33.8 (32.0-36.0) g/dL RDW Std Deviation 45.0 (36.4-46.3) fL RDW Coeff of Krupa 13.1 (11.5-14.5) % Plt Count 297 (130-400) K/uL MPV 9.8 (9.4-12.4) fL Immature Gran % (Auto) 0.4 % Neut % (Auto) 52.6 % Lymph % (Auto) 39.0 % Carroll % (Auto) 5.3 % Eos % (Auto) 2.2 % Baso % (Auto) 0.5 % Neut # (Auto) 5.10 (1.40-6.50) K/uL Lymph # (Auto) 3.78 H (1.2-3.4) K/uL Carroll # (Auto) 0.51 (0.11-0.59) K/uL Eos # (Auto) 0.21 (0-0.50) K/uL Baso # (Auto) 0.05 (0-0.2) K/uL Immature Gran # (Auto) 0.04 (0.01-0.20) K/uL PT 10.7 (9.0-12.0) Seconds INR 1.0 (0.9-1.1) APTT 31.4 H (21.0-31.0) Seconds PTT Ratio 1.1 Sodium 138 (136-145) mmol/L Potassium 3.7 (3.5-5.1) mmol/L Chloride 102 (98-107) mmol/L Carbon Dioxide 26 (21-32) mmol/L Anion Gap 10 (3-11) BUN 13 (6-23) mg/dl Creatinine 0.85 (0.6-1.4) mg/dl Est Cr Clr Drug Dosing 122.0 ml/min Est GFR ( Amer) 122.8 ml/min Est GFR (Non-Af Amer) 106.0 ml/min BUN/Creatinine Ratio 15.3 (10-20) Glucose 142 H (70-99(Fasting)) mg/dl Calcium 9.9 (8.6-10.3) mg/dl Magnesium 1.9 (1.7-2.4) mg/dl Total Bilirubin 0.4 (0.2-1.0) mg/dl AST 11 L (13-39) U/L ALT 20 (7-52) U/L Alkaline Phosphatase 66 (34-104) U/L Troponin I High Sens 3.8 (0-20) pg/ml Total Protein 7.8 (6.0-8.3) gm/dl Albumin 4.1 (3.4-5.0) gm/dl Globulin 3.7 (2.5-4.0) gm/dl Albumin/Globulin Ratio 1.1 (0.9-2) SARS-CoV-2, RNA, NAAT (NEGATIVE) 03/03/23 Range/Units 20:19 WBC (4.8-10.8) K/ul RBC (4.70-6.10) M/uL Hgb (14.0-18.0) g/dl Hct (42.0-52.0) % MCV (80.0-100.0) fL MCH (25.0-34.0) pg MCHC (32.0-36.0) g/dL RDW Std Deviation (36.4-46.3) fL RDW Coeff of Krupa (11.5-14.5) % Plt Count (130-400) K/uL MPV (9.4-12.4) fL Immature Gran % (Auto) % Neut % (Auto) % Lymph % (Auto) % Carroll % (Auto) % Eos % (Auto) % Baso % (Auto) % Neut # (Auto) (1.40-6.50) K/uL Lymph # (Auto) (1.2-3.4) K/uL Carroll # (Auto) (0.11-0.59) K/uL Eos # (Auto) (0-0.50) K/uL Baso # (Auto) (0-0.2) K/uL Immature Gran # (Auto) (0.01-0.20) K/uL PT (9.0-12.0) Seconds INR (0.9-1.1) APTT (21.0-31.0) Seconds PTT Ratio Sodium (136-145) mmol/L Potassium (3.5-5.1) mmol/L Chloride (98-107) mmol/L Carbon Dioxide (21-32) mmol/L Anion Gap (3-11) BUN (6-23) mg/dl Creatinine (0.6-1.4) mg/dl Est Cr Clr Drug Dosing ml/min Est GFR ( Amer) ml/min Est GFR (Non-Af Amer) ml/min BUN/Creatinine Ratio (10-20) Glucose (70-99(Fasting)) mg/dl Calcium (8.6-10.3) mg/dl Magnesium (1.7-2.4) mg/dl Total Bilirubin (0.2-1.0) mg/dl AST (13-39) U/L ALT (7-52) U/L Alkaline Phosphatase (34-104) U/L Troponin I High Sens (0-20) pg/ml Total Protein (6.0-8.3) gm/dl Albumin (3.4-5.0) gm/dl Globulin (2.5-4.0) gm/dl Albumin/Globulin Ratio (0.9-2) SARS-CoV-2, RNA, NAAT NEGATIVE (NEGATIVE) Administered Medications Potassium Chloride/Sodium Chloride (Normal Saline W/20 Meq Kcl) 20 meq in 1,000 mls @ 50 mls/hr IV .Q20H STA; Protocol Stop: 03/04/23 17:47 Last Admin: 03/03/23 22:06 Dose: 50 mls/hr Documented By: MAXIM Discontinued Medications Magnesium Sulfate/Dextrose (Magnesium Sulfate / D5w) 1 gm in 100 mls @ 50 mls/hr IV ONE STA Stop: 03/03/23 23:48 Last Admin: 03/03/23 22:06 Dose: 50 mls/hr Documented By: MAXIM Ioversol (Optiray 320 500ml) 108 ml IV ONCE ONE Stop: 03/03/23 20:11 Last Admin: 03/03/23 20:10 Dose: 108 ml Documented By: ALEXA Imaging Data Radiologist's Impression: Head CT 03/03/23 19:44 CR Exam(s): CT HEAD Without Contrast EXAM: CT Head Without Intravenous Contrast CLINICAL HISTORY: Reason for exam: neuro deficit, acute stroke suspected. TECHNIQUE: Axial computed tomography images of the head/brain without intravenous contrast. CTDI is 37.95 mGy and DLP is 1774.26 mGy-cm. Automated exposure control was utilized for the study. A dose lowering technique was utilized adhering to the principles of ALARA. COMPARISON: September 07, 2022 FINDINGS: Brain: Mild cerebral atrophy and periventricular white matter low density consistent with chronic small vessel disease and/or senescent changes, unchanged. No acute large vessel infarct or intracranial hemorrhage is seen. Ventricles: Unremarkable. No ventriculomegaly. Bones/joints: Unremarkable. No acute fracture. Soft tissues: Unremarkable. Vasculature: Aneurysmal dilation of the basilar artery measuring at least 2 cm in diameter, unchanged since previous. Please see CT angiogram for additional details. Sinuses: Unremarkable as visualized. No acute sinusitis. Mastoid air cells: Unremarkable as visualized. No mastoid effusion. IMPRESSION: 1. Aneurysmal dilation of the basilar artery measuring at least 2 cm in diameter, unchanged since previous. Please see CT angiogram for additional details. 2. Mild cerebral atrophy and periventricular white matter low density consistent with chronic small vessel disease and/or senescent changes, unchanged. No acute large vessel infarct or intracranial hemorrhage is seen. Communications: Call Doctor Stroke Electronically signed by: Antwan Nash MD 03/03/23 21:35 PM Head CTA 03/03/23 19:44 CR Exam(s): CTA HEAD With Contrast IV Amt: 108ml EXAM: CT Angiography Head With Intravenous Contrast CLINICAL HISTORY: Reason for exam: neuro deficit, acute stroke suspected. TECHNIQUE: Axial computed tomographic angiography images of the head with intravenous contrast. CTDI is 37.95 mGy and DLP is 1774.26 mGy-cm. Automated exposure control was utilized for the study. A dose lowering technique was utilized adhering to the principles of ALARA. MIP reconstructed images were created and reviewed. CONTRAST: Patient received 108ml of IV contrast COMPARISON: August 25, 2022 FINDINGS: Right internal carotid artery: No acute findings. Intracranial segment is patent with no significant stenosis. No aneurysm. Right anterior cerebral artery: Normal anatomic variant of absent right A1 segment. The anterior cerebral arteries fill from the left side and appear unremarkable. Right middle cerebral artery: Unremarkable. No occlusion or significant stenosis. No aneurysm. Right posterior cerebral artery: Unremarkable. No occlusion or significant stenosis. No aneurysm. Right vertebral artery: Unremarkable as visualized. Left internal carotid artery: No acute findings. Intracranial segment is patent with no significant stenosis. No aneurysm. Left anterior cerebral artery: Unremarkable. No occlusion or significant stenosis. No aneurysm. Left middle cerebral artery: Unremarkable. No occlusion or significant stenosis. No aneurysm. Left posterior cerebral artery: Unremarkable. No occlusion or significant stenosis. No aneurysm. Left vertebral artery: Unremarkable as visualized. Basilar artery: Diffuse fusiform aneurysmal dilation of the basilar artery measuring up to 2 cm in diameter, not significantly changed since previous. There is peripheral mural thrombus but the vessel remains patent. IMPRESSION: Diffuse fusiform aneurysmal dilation of the basilar artery measuring up to 2 cm in diameter, not significantly changed since previous. There is peripheral mural thrombus but the vessel remains patent. The remaining arterial structures appear within normal limits. No large vessel occlusion is identified. Communications: Call Doctor Stroke Electronically signed by: Antwan Nash MD 03/03/23 21:41 PM Neck CTA 03/03/23 19:44 CR Exam(s): CTA NECK With Contrast IV Amt: 108ml EXAM: CT Angiography Neck With Intravenous Contrast CLINICAL HISTORY: Reason for exam: neuro deficit, acute stroke suspected. TECHNIQUE: Routine carotid CT angiography protocol was performed with intravenous contrast. NASCET criteria using the distal ICAs for comparison were used for evaluation of stenoses. CTDI is 37.95 mGy and DLP is 1774.26 mGy-cm. Automated exposure control was utilized for the study. A dose lowering technique was utilized adhering to the principles of ALARA. MIP reconstructed images were created and reviewed. CONTRAST: Patient received 108ml of IV contrast COMPARISON: August 25, 2022 FINDINGS: VASCULATURE: Right common carotid artery: Unremarkable. No occlusion or significant stenosis. No dissection. Right internal carotid artery: Unremarkable. Extracranial segment is patent with no occlusion or significant stenosis. No dissection. Right external carotid artery: Unremarkable. No occlusion. Right vertebral artery: Unremarkable. No occlusion or significant stenosis. No dissection. Left common carotid artery: Small calcified plaque in the left carotid bifurcation at the origin of the internal carotid artery with no measurable stenosis. Mild motion artifact through the carotid bifurcations. No dissection. Left internal carotid artery: See below. Left external carotid artery: Unremarkable. No occlusion. Left vertebral artery: Small amount of calcified plaque in the mid left vertebral artery without measurable stenosis. No dissection. Aorta: The ascending aortic arch is upper normal in diameter measuring 3.6 cm. There is no aneurysm or dissection. NECK: Bones/joints: Mild degenerative changes throughout the mid cervical spine. No acute fracture or subluxation is seen. Soft tissues: Unremarkable. Lung apices: Clear. CAROTID STENOSIS REFERENCE USING NASCET CRITERIA: % ICA stenosis = (1 - narrowest ICA diameter/diameter of distal cervical ICA) x 100. Mild - <50% stenosis. Moderate - 50-69% stenosis. Severe - 70-94% stenosis. Near occlusion - 95-99% stenosis. Occluded - 100% stenosis. IMPRESSION: No acute findings in the arteries of the neck. Communications: Call Doctor Stroke Electronically signed by: Antwan Nash MD 03/03/23 21:38 PM Discharge Plan Visit Data Chief Complaint: Stroke/CVA Symptoms Stated Complaint: SLURRED SPEECH, FALLING, LETHARGY ED Provider: William Vogel Discharge Problem: TIA (transient ischemic attack), Slurred speech Forms Stand Alone Forms: My [facility] [place] [employer] Prescriptions Prescriptions: No Action furosemide 20 mg tablet 20 mg PO 3XWK PRN (Reason: Edema) Rx Instructions: TAKE THIS MED THREE DAYS WEEKLY, IF NEEDED, FOR SWELLING/EDEMA clopidogrel 75 mg Tablet 75 mg PO QAM Qty: 30 0RF atorvastatin 40 mg Tablet 80 mg PO QAM Qty: 30 0RF aspirin 81 mg Tablet,Delayed Release (Dr/Ec) 81 mg PO DAILY Qty: 30 0RF carvedilol 6.25 mg tablet 6.25 mg PO BID lisinopril 10 mg tablet 10 mg PO DAILY Referrals Referrals: Esteban Tucker PA-C [Primary Care Provider] -
[2023-03-03 20:09] LABS: Basophils # (auto) 0.05 K/uL (0-0.2); Basophils % (auto) 0.5 %; Eosinophils # (auto) 0.21 K/uL (0-0.50); Eosinophils % (auto) 2.2 %; Hematocrit (blood only) 49.7 % (42.0-52.0); Hemoglobin 16.8 g/dl (14.0-18.0); Immature Granulocytes # (auto) 0.04 K/uL (0.01-0.20); Immature Granulocytes % (auto) 0.4 %; Lymphocytes # (auto) 3.78 K/uL (1.2-3.4); Mean Corpuscular Hemoglobin 31.9 pg (25.0-34.0); Mean Corpuscular Hgb Conc 33.8 g/dL (32.0-36.0); Mean Corpuscular Volume 94.3 fL (80.0-100.0); Mean Platelet Volume 9.8 fL (9.4-12.4); Monocytes # (auto) 0.51 K/uL (0.11-0.59); Monocytes % (auto) 5.3 %; Neutrophils % (auto) 52.6 %; Platelet Count 297 K/uL (130-400); RDW Coefficient of Variation 13.1 % (11.5-14.5); Red Blood Count 5.27 M/uL (4.70-6.10); White Blood Count 9.69 K/ul (4.8-10.8)
[2023-03-03] MEDS ORDERED: OPTIRAY 320 500ml IV ONE (20:10)
[2023-03-03 20:25] LABS: Albumin Globulin Ratio 1.1 (0.9-2); Albumin Level 4.1 gm/dl (3.4-5.0); BUN Creatinine Ratio 15.3 (10-20); Bilirubin,Total 0.4 mg/dl (0.2-1.0); Calcium 9.9 mg/dl (8.6-10.3); Est GFR (African American) 122.8 ml/min; Globulin 3.7 gm/dl (2.5-4.0); Magnesium 1.9 mg/dl (1.7-2.4); Potassium 3.7 mmol/L (3.5-5.1); Total Protein 7.8 gm/dl (6.0-8.3)
[2023-03-03 20:32] LABS: Troponin I High Sensitivity 3.8 pg/ml (0-20)
[2023-03-03 20:34] LABS: Partial Thromboplastin Ratio 1.1; Partial Thromboplastin Time 31.4 Seconds (21.0-31.0); Prothrombin Time 10.7 Seconds (9.0-12.0)
--- NOTE | 2023-03-03 21:35 | CT Scan Report ---
Exam(s): CT HEAD Without Contrast EXAM: CT Head Without Intravenous Contrast CLINICAL HISTORY: Reason for exam: neuro deficit, acute stroke suspected. TECHNIQUE: Axial computed tomography images of the head/brain without intravenous contrast. CTDI is 37.95 mGy and DLP is 1774.26 mGy-cm. Automated exposure control was utilized for the study. A dose lowering technique was utilized adhering to the principles of ALARA. COMPARISON: September 07, 2022 FINDINGS: Brain: Mild cerebral atrophy and periventricular white matter low density consistent with chronic small vessel disease and/or senescent changes, unchanged. No acute large vessel infarct or intracranial hemorrhage is seen. Ventricles: Unremarkable. No ventriculomegaly. Bones/joints: Unremarkable. No acute fracture. Soft tissues: Unremarkable. Vasculature: Aneurysmal dilation of the basilar artery measuring at least 2 cm in diameter, unchanged since previous. Please see CT angiogram for additional details. Sinuses: Unremarkable as visualized. No acute sinusitis. Mastoid air cells: Unremarkable as visualized. No mastoid effusion. IMPRESSION: 1. Aneurysmal dilation of the basilar artery measuring at least 2 cm in diameter, unchanged since previous. Please see CT angiogram for additional details. 2. Mild cerebral atrophy and periventricular white matter low density consistent with chronic small vessel disease and/or senescent changes, unchanged. No acute large vessel infarct or intracranial hemorrhage is seen. Communications: Call Doctor Stroke Electronically signed by: Antwan Nash MD 03/03/23 21:35 PM
--- NOTE | 2023-03-03 21:38 | CT Scan Report ---
Exam(s): CTA NECK With Contrast IV Amt: 108ml EXAM: CT Angiography Neck With Intravenous Contrast CLINICAL HISTORY: Reason for exam: neuro deficit, acute stroke suspected. TECHNIQUE: Routine carotid CT angiography protocol was performed with intravenous contrast. NASCET criteria using the distal ICAs for comparison were used for evaluation of stenoses. CTDI is 37.95 mGy and DLP is 1774.26 mGy-cm. Automated exposure control was utilized for the study. A dose lowering technique was utilized adhering to the principles of ALARA. MIP reconstructed images were created and reviewed. CONTRAST: Patient received 108ml of IV contrast COMPARISON: August 25, 2022 FINDINGS: VASCULATURE: Right common carotid artery: Unremarkable. No occlusion or significant stenosis. No dissection. Right internal carotid artery: Unremarkable. Extracranial segment is patent with no occlusion or significant stenosis. No dissection. Right external carotid artery: Unremarkable. No occlusion. Right vertebral artery: Unremarkable. No occlusion or significant stenosis. No dissection. Left common carotid artery: Small calcified plaque in the left carotid bifurcation at the origin of the internal carotid artery with no measurable stenosis. Mild motion artifact through the carotid bifurcations. No dissection. Left internal carotid artery: See below. Left external carotid artery: Unremarkable. No occlusion. Left vertebral artery: Small amount of calcified plaque in the mid left vertebral artery without measurable stenosis. No dissection. Aorta: The ascending aortic arch is upper normal in diameter measuring 3.6 cm. There is no aneurysm or dissection. NECK: Bones/joints: Mild degenerative changes throughout the mid cervical spine. No acute fracture or subluxation is seen. Soft tissues: Unremarkable. Lung apices: Clear. CAROTID STENOSIS REFERENCE USING NASCET CRITERIA: % ICA stenosis = (1 - narrowest ICA diameter/diameter of distal cervical ICA) x 100. Mild - <50% stenosis. Moderate - 50-69% stenosis. Severe - 70-94% stenosis. Near occlusion - 95-99% stenosis. Occluded - 100% stenosis. IMPRESSION: No acute findings in the arteries of the neck. Communications: Call Doctor Stroke Electronically signed by: Antwan Nash MD 03/03/23 21:38 PM
--- NOTE | 2023-03-03 21:42 | CT Scan Report ---
Exam(s): CTA HEAD With Contrast IV Amt: 108ml EXAM: CT Angiography Head With Intravenous Contrast CLINICAL HISTORY: Reason for exam: neuro deficit, acute stroke suspected. TECHNIQUE: Axial computed tomographic angiography images of the head with intravenous contrast. CTDI is 37.95 mGy and DLP is 1774.26 mGy-cm. Automated exposure control was utilized for the study. A dose lowering technique was utilized adhering to the principles of ALARA. MIP reconstructed images were created and reviewed. CONTRAST: Patient received 108ml of IV contrast COMPARISON: August 25, 2022 FINDINGS: Right internal carotid artery: No acute findings. Intracranial segment is patent with no significant stenosis. No aneurysm. Right anterior cerebral artery: Normal anatomic variant of absent right A1 segment. The anterior cerebral arteries fill from the left side and appear unremarkable. Right middle cerebral artery: Unremarkable. No occlusion or significant stenosis. No aneurysm. Right posterior cerebral artery: Unremarkable. No occlusion or significant stenosis. No aneurysm. Right vertebral artery: Unremarkable as visualized. Left internal carotid artery: No acute findings. Intracranial segment is patent with no significant stenosis. No aneurysm. Left anterior cerebral artery: Unremarkable. No occlusion or significant stenosis. No aneurysm. Left middle cerebral artery: Unremarkable. No occlusion or significant stenosis. No aneurysm. Left posterior cerebral artery: Unremarkable. No occlusion or significant stenosis. No aneurysm. Left vertebral artery: Unremarkable as visualized. Basilar artery: Diffuse fusiform aneurysmal dilation of the basilar artery measuring up to 2 cm in diameter, not significantly changed since previous. There is peripheral mural thrombus but the vessel remains patent. IMPRESSION: Diffuse fusiform aneurysmal dilation of the basilar artery measuring up to 2 cm in diameter, not significantly changed since previous. There is peripheral mural thrombus but the vessel remains patent. The remaining arterial structures appear within normal limits. No large vessel occlusion is identified. Communications: Call Doctor Stroke Electronically signed by: Antwan Nash MD 03/03/23 21:41 PM
[2023-03-03] MEDS ORDERED: NSS + 20MEQ KCL 20 MEQ/1,000 ML BAG IV STA (21:48)
[2023-03-03] MEDS ORDERED: MAGNESIUM SULFATE / D5W 1 GM/100 ML BAG IV STA (21:49)
--- NOTE | 2023-03-03 23:28 | History & Physical Report ---
Date of Service March 03, 2023 Assessment & Plan (1) TIA (transient ischemic attack): Plan: Past history of cerebellar CVA ? Compliance with home medications secondary to possible functional disability Hypertension elevated secondary to above hx CAD/PVD COPD, SHANNON on CPAP, lung status at baseline history of PE status post Eliquis history second-degree AV block (Mobitz type I) hyperlipidemia, on statin Rx hemoglobin A1c of prediabetes, hemoglobin A1c of 6.3 last August 2022 ongoing tobacco abuse OBS Medical telemetry Neurochecks Facilitate home antiplatelet regimen MRI brain, TTE for stroke work-up May need Neurology eval pending work-up results Permissive hypertension until stroke ruled out Update lipid profile and hemoglobin A1c PT OT eval DVT prophylaxis with Lovenox subcu Full code Text document was generated using [employer] voice recognition software. It may contain grammatical or spelling errors. Kindly contact undersigned for clarification of any documentation item in question. History of Present Illness Chief Complaint: Transient slurred speech, left leg weakness Primary Care Provider: Esteban Tucker History obtained from patient and records. Medical history significant for CAD, CVA, basilar artery aneurysm as per records, COPD, SHANNON on CPAP, history of PE status post Eliquis, history second- degree AV block (Mobitz type I), hypertension, hyperlipidemia, prediabetes, ongoing tobacco abuse. Last confinement August 2022 for recurrent falls secondary to ambulatory dysfunction. Patient discharged to short-term rehab before going home. Last night, patient noted left leg weakness and slurred speech. Denies headache, chest pain, unusual shortness of breath. Patient not sure if he is taking his meds. Improving symptoms upon arrival at the ER. Medical History as above Surgical History : Hernia repair, vascular procedures, dental surgery, ventral hernia surgery, left hand/wrist surgery, tibia fracture surgery, shoulder surgery Family History : Heart disease Personal/Social history : 1/4 pack daily, no EtOH intake, disabled Allergies Allergy/AdvReac Type Severity Reaction Status Date / Time Penicillins Allergy Mild UNKNOWN Verified 03/03/23 21:42 oxycodone AdvReac Mild GI DISTRESS Verified 03/03/23 21:42 Home Medications Medication Instructions Recorded Confirmed Type furosemide 20 mg tablet 20 mg PO [id number] PRN Edema 08/25/22 03/03/23 History aspirin 81 mg tablet,delayed 81 mg PO DAILY #30 tabs 08/29/22 03/03/23 Rx release atorvastatin 40 mg tablet 80 mg PO QAM #30 tabs 08/29/22 03/03/23 Rx clopidogrel 75 mg tablet 75 mg PO QAM #30 tabs 08/29/22 03/03/23 Rx carvedilol 6.25 mg tablet 6.25 mg PO BID 03/03/23 03/03/23 History lisinopril 10 mg tablet 10 mg PO DAILY 03/03/23 03/03/23 History Past Med/Surg History Medical History Basilar artery aneurysm CAD (coronary artery disease) COPD (chronic obstructive pulmonary disease) CVA (cerebral vascular accident) Dyslipidemia Fracture of wrist (10/11/12) Fx shaft fibula-closed (10/11/12) HTN (hypertension) 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) Tobacco use Surgical History History of arthroscopy of shoulder History of umbilical hernia repair Family History Father Coronary heart disease [place] age 50's Hypertension Grandfather (Paternal) Coronary heart disease Social History Smoking Status: Current every day smoker Tobacco Type: Cigarettes Cigarettes Per Day: 2-3 ppd; Second Hand Exposure: No; Do You Dip or Chew Tobacco: No; Hx Alcohol Use: No Hx Substance Use: No Preferred Language: Ukrainian Communication Ability: Effective Hand Wood Sander Required: No Beliefs That Will Affect Care: None marital status: Single Current Living Situation: Other Current Living Situation Comment: would not disclose current occupational status: employed Other Information That Helps Us Care for You: No Feels Safe at Home: Yes Safety Concerns: Feels Safe At This Time Assistive Devices: CPAP Review of Systems Review of Systems: As per HPI, all other systems reviewed and negative Physical Exam Physical Exam: GENERAL: Comfortable, pleasant, morbidly obese, looks older than stated age, mumbling speech, no respiratory distress SKIN: Normal color, warm HEENT: [place] palpebral conjunctivae, no ptosis, dry buccal mucosa NECK : Supple, short neck, no tenderness CHEST : Decreased breath sounds, no tenderness HEART : RRR, no obvious murmurs ABDOMEN: Some distention, nontender EXTREMITIES : No LE swelling, no LE tenderness, no other conspicuous deformities noted NEUROLOGIC : Coherent, no facial asymmetry, MMTS BUE/BLE 4/5, gait and stance not assessed Results & Data Results & Data Vital Signs (Past 12 Hours) Vital Signs Temp Pulse Resp BP Pulse Ox O2 Del Method 03/03/23 22:00 86 22 135/104 H 94 Room Air 03/03/23 21:45 89 20 151/102 H 94 Room Air 03/03/23 20:15 93 H 18 160/87 H 93 Room Air 03/03/23 20:15 92 H 03/03/23 19:36 36.8 C 98 H 20 163/95 H 93 Room Air Laboratory Results Laboratory Results WBC 9.69 K/ul (4.8-10.8) 03/03/23 19:54 RBC 5.27 M/uL (4.70-6.10) 03/03/23 19:54 Hgb 16.8 g/dl (14.0-18.0) 03/03/23 19:54 Hct 49.7 % (42.0-52.0) 03/03/23 19:54 MCV 94.3 fL (80.0-100.0) 03/03/23 19:54 MCH 31.9 pg (25.0-34.0) 03/03/23 19:54 MCHC 33.8 g/dL (32.0-36.0) 03/03/23 19:54 RDW Std Deviation 45.0 fL (36.4-46.3) 03/03/23 19:54 RDW Coeff of Krupa 13.1 % (11.5-14.5) 03/03/23 19:54 Plt Count 297 K/uL (130-400) 03/03/23 19:54 MPV 9.8 fL (9.4-12.4) 03/03/23 19:54 Immature Gran % (Auto) 0.4 % 03/03/23 19:54 Neut % (Auto) 52.6 % 03/03/23 19:54 Lymph % (Auto) 39.0 % 03/03/23 19:54 Dane % (Auto) 5.3 % 03/03/23 19:54 Eos % (Auto) 2.2 % 03/03/23 19:54 Baso % (Auto) 0.5 % 03/03/23 19:54 Neut # (Auto) 5.10 K/uL (1.40-6.50) 03/03/23 19:54 Lymph # (Auto) 3.78 K/uL (1.2-3.4) H 03/03/23 19:54 Dane # (Auto) 0.51 K/uL (0.11-0.59) 03/03/23 19:54 Eos # (Auto) 0.21 K/uL (0-0.50) 03/03/23 19:54 Baso # (Auto) 0.05 K/uL (0-0.2) 03/03/23 19:54 Immature Gran # (Auto) 0.04 K/uL (0.01-0.20) 03/03/23 19:54 PT 10.7 Seconds (9.0-12.0) 03/03/23 19:54 INR 1.0 (0.9-1.1) 03/03/23 19:54 APTT 31.4 Seconds (21.0-31.0) H 03/03/23 19:54 PTT Ratio 1.1 03/03/23 19:54 Sodium 138 mmol/L (136-145) 03/03/23 19:54 Potassium 3.7 mmol/L (3.5-5.1) 03/03/23 19:54 Chloride 102 mmol/L (98-107) 03/03/23 19:54 Carbon Dioxide 26 mmol/L (21-32) 03/03/23 19:54 Anion Gap 10 (3-11) 03/03/23 19:54 BUN 13 mg/dl (6-23) 03/03/23 19:54 Creatinine 0.85 mg/dl (0.6-1.4) 03/03/23 19:54 Est Cr Clr Drug Dosing 122.0 ml/min 03/03/23 19:54 Est GFR ( Amer) 122.8 ml/min 03/03/23 19:54 Est GFR (Non-Af Amer) 106.0 ml/min 03/03/23 19:54 BUN/Creatinine Ratio 15.3 (10-20) 03/03/23 19:54 Glucose 142 mg/dl (70-99(Fasting)) H 03/03/23 19:54 Calcium 9.9 mg/dl (8.6-10.3) 03/03/23 19:54 Magnesium 1.9 mg/dl (1.7-2.4) 03/03/23 19:54 Total Bilirubin 0.4 mg/dl (0.2-1.0) 03/03/23 19:54 AST 11 U/L (13-39) L 03/03/23 19:54 ALT 20 U/L (7-52) 03/03/23 19:54 Alkaline Phosphatase 66 U/L (34-104) 03/03/23 19:54 Troponin I High Sens 3.8 pg/ml (0-20) 03/03/23 19:54 Total Protein 7.8 gm/dl (6.0-8.3) 03/03/23 19:54 Albumin 4.1 gm/dl (3.4-5.0) 03/03/23 19:54 Globulin 3.7 gm/dl (2.5-4.0) 03/03/23 19:54 Albumin/Globulin Ratio 1.1 (0.9-2) 03/03/23 19:54 SARS-CoV-2, RNA, NAAT NEGATIVE (NEGATIVE) 03/03/23 20:[address] 03/03/23 19:44 CR Exam(s): CT HEAD Without Contrast EXAM: CT Head Without Intravenous Contrast CLINICAL HISTORY: Reason for exam: neuro deficit, acute stroke suspected. TECHNIQUE: Axial computed tomography images of the head/brain without intravenous contrast. CTDI is 37.95 mGy and DLP is 1774.26 mGy-cm. Automated exposure control was utilized for the study. A dose lowering technique was utilized adhering to the principles of ALARA. COMPARISON: September 07, 2022 FINDINGS: Brain: Mild cerebral atrophy and periventricular white matter low density consistent with chronic small vessel disease and/or senescent changes, unchanged. No acute large vessel infarct or intracranial hemorrhage is seen. Ventricles: Unremarkable. No ventriculomegaly. Bones/joints: Unremarkable. No acute fracture. Soft tissues: Unremarkable. Vasculature: Aneurysmal dilation of the basilar artery measuring at least 2 cm in diameter, unchanged since previous. Please see CT angiogram for additional details. Sinuses: Unremarkable as visualized. No acute sinusitis. Mastoid air cells: Unremarkable as visualized. No mastoid effusion. IMPRESSION: 1. Aneurysmal dilation of the basilar artery measuring at least 2 cm in diameter, unchanged since previous. Please see CT angiogram for additional details. 2. Mild cerebral atrophy and periventricular white matter low density consistent with chronic small vessel disease and/or senescent changes, unchanged. No acute large vessel infarct or intracranial hemorrhage is seen. Communications: Call Doctor Stroke Electronically signed by: Antwan Nash MD 03/03/23 21:35 PM Head CTA 03/03/23 19:44 CR Exam(s): CTA HEAD With Contrast IV Amt: 108ml EXAM: CT Angiography Head With Intravenous Contrast CLINICAL HISTORY: Reason for exam: neuro deficit, acute stroke suspected. TECHNIQUE: Axial computed tomographic angiography images of the head with intravenous contrast. CTDI is 37.95 mGy and DLP is 1774.26 mGy-cm. Automated exposure control was utilized for the study. A dose lowering technique was utilized adhering to the principles of ALARA. MIP reconstructed images were created and reviewed. CONTRAST: Patient received 108ml of IV contrast COMPARISON: August 25, 2022 FINDINGS: Right internal carotid artery: No acute findings. Intracranial segment is patent with no significant stenosis. No aneurysm. Right anterior cerebral artery: Normal anatomic variant of absent right A1 segment. The anterior cerebral arteries fill from the left side and appear unremarkable. Right middle cerebral artery: Unremarkable. No occlusion or significant stenosis. No aneurysm. Right posterior cerebral artery: Unremarkable. No occlusion or significant stenosis. No aneurysm. Right vertebral artery: Unremarkable as visualized. Left internal carotid artery: No acute findings. Intracranial segment is patent with no significant stenosis. No aneurysm. Left anterior cerebral artery: Unremarkable. No occlusion or significant stenosis. No aneurysm. Left middle cerebral artery: Unremarkable. No occlusion or significant stenosis. No aneurysm. Left posterior cerebral artery: Unremarkable. No occlusion or significant stenosis. No aneurysm. Left vertebral artery: Unremarkable as visualized. Basilar artery: Diffuse fusiform aneurysmal dilation of the basilar artery measuring up to 2 cm in diameter, not significantly changed since previous. There is peripheral mural thrombus but the vessel remains patent. IMPRESSION: Diffuse fusiform aneurysmal dilation of the basilar artery measuring up to 2 cm in diameter, not significantly changed since previous. There is peripheral mural thrombus but the vessel remains patent. The remaining arterial structures appear within normal limits. No large vessel occlusion is identified. Communications: Call Doctor Stroke Electronically signed by: Antwan Nash MD 03/03/23 21:41 PM Neck CTA 03/03/23 19:44 CR Exam(s): CTA NECK With Contrast IV Amt: 108ml EXAM: CT Angiography Neck With Intravenous Contrast CLINICAL HISTORY: Reason for exam: neuro deficit, acute stroke suspected. TECHNIQUE: Routine carotid CT angiography protocol was performed with intravenous contrast. NASCET criteria using the distal ICAs for comparison were used for evaluation of stenoses. CTDI is 37.95 mGy and DLP is 1774.26 mGy-cm. Automated exposure control was utilized for the study. A dose lowering technique was utilized adhering to the principles of ALARA. MIP reconstructed images were created and reviewed. CONTRAST: Patient received 108ml of IV contrast COMPARISON: August 25, 2022 FINDINGS: VASCULATURE: Right common carotid artery: Unremarkable. No occlusion or significant stenosis. No dissection. Right internal carotid artery: Unremarkable. Extracranial segment is patent with no occlusion or significant stenosis. No dissection. Right external carotid artery: Unremarkable. No occlusion. Right vertebral artery: Unremarkable. No occlusion or significant stenosis. No dissection. Left common carotid artery: Small calcified plaque in the left carotid bifurcation at the origin of the internal carotid artery with no measurable stenosis. Mild motion artifact through the carotid bifurcations. No dissection. Left internal carotid artery: See below. Left external carotid artery: Unremarkable. No occlusion. Left vertebral artery: Small amount of calcified plaque in the mid left vertebral artery without measurable stenosis. No dissection. Aorta: The ascending aortic arch is upper normal in diameter measuring 3.6 cm. There is no aneurysm or dissection. NECK: Bones/joints: Mild degenerative changes throughout the mid cervical spine. No acute fracture or subluxation is seen. Soft tissues: Unremarkable. Lung apices: Clear. CAROTID STENOSIS REFERENCE USING NASCET CRITERIA: % ICA stenosis = (1 - narrowest ICA diameter/diameter of distal cervical ICA) x 100. Mild - <50% stenosis. Moderate - 50-69% stenosis. Severe - 70-94% stenosis. Near occlusion - 95-99% stenosis. Occluded - 100% stenosis. IMPRESSION: No acute findings in the arteries of the neck. Communications: Call Doctor Stroke Electronically signed by: Antwan Nash MD 03/03/23 21:38 PM Diagnostic Findings EKG as per my interpretation : Rate 90, LAD, LAFB, no ischemia
[2023-03-03] MEDS ORDERED: oxyCODONE HCL IR 5 MG TAB (IMMEDIATE RELEASE) PO PRN (23:32)
[2023-03-03] MEDS ORDERED: ASPIRIN 81 MG ECTAB PO STA (23:32)
[2023-03-03] MEDS ORDERED: PROMETHAZINE HCL 12.5 MG in SODIUM CHLORIDE 0.9% 50 ML IV PRN (23:32)
[2023-03-03] MEDS ORDERED: CLOPIDOGREL BISULFATE 75 MG TAB PO STA (23:40)
[2023-03-04] MEDS ORDERED: PHARMACIST DISCHARGE MED REC CONSULT PRN (00:43)
[2023-03-04] MEDS ORDERED: ACETAMINOPHEN 325 MG TAB PO PRN (00:43)
[2023-03-04] MEDS ORDERED: HYDROCODONE/ACETAMOPHEN 5/325MG TAB PO PRN (04:04)
[2023-03-04 07:13] LABS: Basophils # (auto) 0.03 K/uL (0-0.2); Basophils % (auto) 0.3 %; Eosinophils % (auto) 2.2 %; Hematocrit (blood only) 46.7 % (42.0-52.0); Hemoglobin 15.9 g/dl (14.0-18.0); Immature Granulocytes # (auto) 0.13 K/uL (0.01-0.20); Immature Granulocytes % (auto) 1.5 %; Lymphocytes # (auto) 3.39 K/uL (1.2-3.4); Lymphocytes % (auto) 37.9 %; Mean Corpuscular Hemoglobin 31.7 pg (25.0-34.0); Monocytes # (auto) 0.64 K/uL (0.11-0.59); Monocytes % (auto) 7.2 %; Neutrophils # (auto) 4.55 K/uL (1.40-6.50); Neutrophils % (auto) 50.9 %; Platelet Count 283 K/uL (130-400); RDW Coefficient of Variation 13.1 % (11.5-14.5); RDW Standard Deviation 44.7 fL (36.4-46.3); Red Blood Count 5.02 M/uL (4.70-6.10); White Blood Count 8.94 K/ul (4.8-10.8)
[2023-03-04 07:37] LABS: BUN Creatinine Ratio 15.1 (10-20); Calcium 9.3 mg/dl (8.6-10.3); Est GFR (African American) 122.2 ml/min; Est GFR (Non-African American) 105.5 ml/min; Potassium 3.9 mmol/L (3.5-5.1)
[2023-03-04] MEDS: ASPIRIN 81 MG ECTAB PO SCH (07:50)
[2023-03-04] MEDS: carvediloL 3.125 MG TAB PO SCH ×2 (07:50→20:04)
[2023-03-04] MEDS: CLOPIDOGREL BISULFATE 75 MG TAB PO SCH (07:51)
[2023-03-04] MEDS: ATORVASTATIN 40 MG TAB PO SCH (07:51)
[2023-03-04] MEDS: ENOXAPARIN INJ 40 MG/0.4 ML SYR SQ SCH (07:51)
[2023-03-04 07:59] LABS: Estimated Average Glucose 131 mg/dl; Hemoglobin A1C 6.2 % (4.5-5.6)
--- NOTE | 2023-03-04 11:55 | Magnetic Resonance Report ---
MR brain wo con HISTORY: 42 years-old Male r/o stroke acute strokelike symptoms COMPARISON: CT head 03/03/2023, brain MRI 08/25/2022 TECHNIQUE: Multiplanar multisequence MRI of the brain was obtained without the use of IV contrast. FINDINGS: Mildly motion degraded exam. No restricted diffusion. Dolichoectasia with aneurysmal dilation of the basilar artery redemonstrated with associated chronic intramural thrombus/atheromatous plaque. Again noted is associated mass effect upon the cerebral peduncles and dotty. No acute intracranial hemorrhag e, midline shift, abnormal extra-axial collection, hydrocephalus or mass. Chronic right cerebellar in farct with gliosis and encephalomalacia. Volume and signal of the brain parenchyma is otherwise withi n normal limits. Cerebral venous sinuses appear patent. Skull, orbits and soft tissues are unremarkable. Mastoid air c ells and paranasal sinuses are clear. IMPRESSION: 1. No acute intracranial abnormality. No acute or subacute infarct. 2. Dolichoectasia with aneurysmal dilation of the basilar artery redemonstrated with associated chron ic intramural thrombus/atheromatous plaque and associated mass effect upon the cerebral peduncles and dotty. 3. Chronic right cerebellar infarct. ACT 112: Negative or not required by law. The above report was generated using voice recognition software. It may contain grammatical, syntax o r spelling errors. Electronically signed by: Arthur Braden M.D. 03/04/2023 11:53 AM
--- NOTE | 2023-03-04 12:06 | Hospitalist Progress Note ---
Date of Service March 04, 2023 Assessment & Plan (1) Dysarthria: (2) History of cerebellar stroke: (3) Dyslipidemia: (4) HTN (hypertension): (5) Tobacco use: Plan 42 year old female with h/o cerebellar stroke Aug 2022,CAD, CVA, basilar artery aneurysm as per records, COPD, SHANNON on CPAP, history of PE status post Eliquis, history second-degree AV block (Mobitz type I), hypertension, hyperlipidemia, prediabetes, ongoing tobacco abuse who presented to the ED 03/03 with slurred spe ech and left leg weakness MRI brain 1. No acute intracranial abnormality. No acute or subacute infarct. 2. Dolichoectasia with aneurysmal dilation of the basilar artery redemonstrated with associated chronic intramural thrombus/atheromatous plaque and associated mass effect upon the cerebral peduncles and dotty. 3. Chronic right cerebellar infarct. CTA head/neck- No acute findings in the arteries of the neck. - Diffuse fusiform aneurysmal dilation of the basilar artery measuring up to 2 cm in diameter, not significantly changed since previous. There is peripheral mural thrombus but the vessel remains patent. - The remaining arterial structures appear within normal limits. No large vessel occlusion is identified. Echo- no new findings. PDA similar to before Tele- NSR Dysarthria- improving, but not completely resolved yet. Stroke work up negative with negative CT head, CTA head and neck, MRI brain. Tele unremarkable. Already on DAPT, statin. PT OT eval pending HTN- continue coreg, lisinopril- adjust as indicated H/o cerebellar stroke- on DAPT, statin Prediabetes- HA1c 6.2. SSI prn. Consider metformin. OP follow up with PCP. Hypertriglyceridemia- Persistently high even in prior labs. Will consider fenofibrate. OP follow up with PCP DVT ppx- sc lovenox Dispo- Pending PT OT eval Admission and Anticipated Discharge Date Admission Date: March 03, 2023 Subjective Patient was seen and examined at bedside. He is slurred speech is improved. No new neurological symptoms. He is asking if this is heatstroke or what. No fever, chills, chest pain or shortness of nausea or vomiting Review of Systems Review of Systems: All systems reviewed & are unremarkable except as noted in Subjective Physical Exam Physical Exam: General: Lying comfortably in bed, not in distress, on room air HEENT: EOMI, OVI, MMM Chest: Clear breath sounds bilaterally, no wheezes or crackles CVS: Regular rate and rhythm, normal heart sounds, no murmur Abdomen: Soft, non tender, not distended, normal bowel sounds Neuro: Awake, alert, oriented. Dysarthria present. No pronator drift. Strength 5/5 on all extremities. Sensation grossly intact. Finger-nose test normal. Gait not evaluated. Extremities: No cyanosis, clubbing or edema Results & Data Results & Data Vital Signs (Past 12 Hours) Vital Signs Temp Pulse Pulse Resp BP Pulse Ox O2 Del Method 03/04/23 07:43 89 03/04/23 06:59 Room Air 03/04/23 03:17 36.5 C 89 18 172/109 H 93 Room Air 03/04/23 00:43 36.7 C 92 H 18 162/96 H 94 Room Air Laboratory Results Short CBC 03/03/23 03/04/23 Range/Units 19:54 06:13 WBC 9.69 8.94 (4.8-10.8) K/ul Hgb 16.8 15.9 (14.0-18.0) g/dl Hct 49.7 46.7 (42.0-52.0) % Plt Count 297 283 (130-400) K/uL [facility] 03/03/23 03/04/23 19:54 06:13 Sodium 138 138 Potassium 3.7 3.9 Chloride 102 102 Carbon Dioxide 26 29 BUN 13 13 Creatinine 0.85 0.86 Glucose 142 H 104 H Calcium 9.9 9.3 Liver Function 03/03/23 Range/Units 19:54 Total Bilirubin 0.4 (0.2-1.0) mg/dl AST 11 L (13-39) U/L ALT 20 (7-52) U/L Alkaline Phosphatase 66 (34-104) U/L Albumin 4.1 (3.4-5.0) gm/dl Diagnostic Findings Brain MRI 03/04/23 11:32 MR brain wo con HISTORY: 42 years-old Male r/o stroke acute strokelike symptoms COMPARISON: CT head 03/03/2023, brain MRI 08/25/2022 TECHNIQUE: Multiplanar multisequence MRI of the brain was obtained without the use of IV contrast. FINDINGS: Mildly motion degraded exam. No restricted diffusion. Dolichoectasia with aneurysmal dilation of the basilar artery redemonstrated with associated chronic intramural thrombus/atheromatous plaque. Again noted is associated mass effect upon the cerebral peduncles and dotty. No acute intracranial hemorrhage, midline shift, abnormal extra-axial collection, hydrocephalus or mass. Chronic right cerebellar infarct with gliosis and encephalomalacia. Volume and signal of the brain parenchyma is otherwise within normal limits. Cerebral venous sinuses appear patent. Skull, orbits and soft tissues are unremarkable. Mastoid air cells and paranasal sinuses are clear. IMPRESSION: 1. No acute intracranial abnormality. No acute or subacute infarct. 2. Dolichoectasia with aneurysmal dilation of the basilar artery redemonstrated with associated chronic intramural thrombus/atheromatous plaque and associated mass effect upon the cerebral peduncles and dotty. 3. Chronic right cerebellar infarct. ACT 112: Negative or not required by law. The above report was generated using voice recognition software. It may contain grammatical, syntax or spelling errors. Electronically signed by: Arthur Braden M.D. 03/04/2023 11:53 AM Medications Administered Current Inpatient Medications Acetaminophen (Acetaminophen 325 Mg Tab) 650 mg PO Q4H PRN PRN Reason: Pain or Fever Stop: 04/03/23 00:42 Hydrocodone Bitart/Acetaminophen (Hydrocodone/Acetamophen 5/325mg Tab) 1 tab PO QID PRN PRN Reason: Pain Stop: 03/18/23 04:03 Aspirin (Aspirin 81 Mg Ectab) 81 mg PO DAILY [facility] Stop: 04/03/23 08:59 Last Admin: 03/04/23 07:50 Dose: 81 mg Atorvastatin Calcium (Atorvastatin 40 Mg Tab) 80 mg PO QAM [facility] Stop: 04/03/23 08:59 Last Admin: 03/04/23 07:51 Dose: 80 mg Carvedilol (Carvedilol 3.125 Mg Tab) 3.125 mg PO BID [facility] Stop: 04/03/23 08:59 Last Admin: 03/04/23 07:50 Dose: 3.125 mg Clopidogrel Bisulfate (Clopidogrel Bisulfate 75 Mg Tab) 75 mg PO QAM [facility] Stop: 04/03/23 08:59 Last Admin: 03/04/23 07:51 Dose: 75 mg Enoxaparin Sodium (Enoxaparin Inj 40 Mg/0.4 Ml Syr) 40 mg SQ QAM [facility] Stop: 04/03/23 08:59 Last Admin: 03/04/23 07:51 Dose: 40 mg Potassium Chloride/Sodium Chloride (Normal Saline W/20 Meq Kcl) 20 meq in 1,000 mls @ 50 mls/hr IV .Q20H STA; Protocol Stop: 03/04/23 17:47 Last Admin: 03/03/23 22:06 Dose: 50 mls/hr Promethazine HCl 12.5 mg/ (Sodium Chloride) 50.5 mls @ 202 mls/hr IV Q6H PRN PRN Reason: Nausea And Vomiting Stop: 04/02/23 23:31 Miscellaneous Information (Pharmacist Discharge Med Rec Consult) 1 each N/A UD PRN PRN Reason: Consult Stop: 04/03/23 00:42
[2023-03-04] MEDS: lisinopril 10 MG TAB PO SCH (14:00)
[2023-03-05 07:03] LABS: Basophils # (auto) 0.04 K/uL (0-0.2); Basophils % (auto) 0.5 %; Eosinophils # (auto) 0.16 K/uL (0-0.50); Hematocrit (blood only) 44.3 % (42.0-52.0); Immature Granulocytes # (auto) 0.04 K/uL (0.01-0.20); Immature Granulocytes % (auto) 0.5 %; Lymphocytes # (auto) 3.01 K/uL (1.2-3.4); Lymphocytes % (auto) 37.8 %; Mean Corpuscular Hemoglobin 31.7 pg (25.0-34.0); Mean Corpuscular Hgb Conc 33.9 g/dL (32.0-36.0); Mean Corpuscular Volume 93.7 fL (80.0-100.0); Mean Platelet Volume 10.2 fL (9.4-12.4); Monocytes # (auto) 0.58 K/uL (0.11-0.59); Monocytes % (auto) 7.3 %; Neutrophils # (auto) 4.13 K/uL (1.40-6.50); Neutrophils % (auto) 51.9 %; Platelet Count 240 K/uL (130-400); RDW Coefficient of Variation 12.9 % (11.5-14.5); RDW Standard Deviation 44.7 fL (36.4-46.3); Red Blood Count 4.73 M/uL (4.70-6.10); White Blood Count 7.96 K/ul (4.8-10.8)
[2023-03-05 07:15] LABS: BUN Creatinine Ratio 18.2 (10-20); Creatinine Clr Calc Pharmacy 131.7 ml/min; Est GFR (African American) 121.1 ml/min; Est GFR (Non-African American) 104.5 ml/min; Magnesium 2.1 mg/dl (1.7-2.4); Phosphorus 4.4 mg/dl (2.5-4.9); Potassium 4.1 mmol/L (3.5-5.1)
[2023-03-05] MEDS: ASPIRIN 81 MG ECTAB PO SCH (08:05)
[2023-03-05] MEDS: lisinopril 10 MG TAB PO SCH (08:05)
[2023-03-05] MEDS: ATORVASTATIN 40 MG TAB PO SCH (08:06)
[2023-03-05] MEDS: CLOPIDOGREL BISULFATE 75 MG TAB PO SCH (08:06)
[2023-03-05] MEDS: ENOXAPARIN INJ 40 MG/0.4 ML SYR SQ SCH (08:06)
[2023-03-05] MEDS: carvediloL 3.125 MG TAB PO SCH (08:06)
[2023-03-05] MEDS ORDERED: FENOFIBRATE NANOCRYSTALLIZED 145 MG TABLET PO SCH (09:00)
--- NOTE | 2023-03-05 12:01 | Hospitalist Progress Note ---
Date of Service March 05, 2023 Assessment & Plan (1) Dysarthria: (2) History of cerebellar stroke: (3) Dyslipidemia: (4) HTN (hypertension): (5) Tobacco use: Plan 42 year old female with h/o cerebellar stroke Aug 2022,CAD, CVA, basilar artery aneurysm as per records, COPD, SHANNON on CPAP, history of PE status post Eliquis, history second-degree AV block (Mobitz type I), hypertension, hyperlipidemia, prediabetes, ongoing tobacco abuse who presented to the ED 03/03 with slurred spe ech and left leg weakness MRI brain 1. No acute intracranial abnormality. No acute or subacute infarct. 2. Dolichoectasia with aneurysmal dilation of the basilar artery redemonstrated with associated chronic intramural thrombus/atheromatous plaque and associated mass effect upon the cerebral peduncles and dotty. 3. Chronic right cerebellar infarct. CTA head/neck- No acute findings in the arteries of the neck. - Diffuse fusiform aneurysmal dilation of the basilar artery measuring up to 2 cm in diameter, not significantly changed since previous. There is peripheral mural thrombus but the vessel remains patent. - The remaining arterial structures appear within normal limits. No large vessel occlusion is identified. Echo- no new findings. PDA similar to before Tele- NSR Dysarthria- improving, but not completely resolved yet. Stroke work up negative with negative CT head, CTA head and neck, MRI brain. Tele unremarkable. Already on DAPT, statin. PT OT recommended rehab. HTN- continue coreg, lisinopril- adjust as indicated H/o cerebellar stroke- on DAPT, statin Prediabetes- HA1c 6.2. SSI prn. Consider metformin. OP follow up with PCP. Hypertriglyceridemia- Persistently high even in prior labs. Started on fenofibrate. OP follow up with PCP DVT ppx- sc lovenox Dispo- PT OT recommended rehab. CM following. Admission and Anticipated Discharge Date Admission Date: March 03, 2023 Subjective Patient was seen and examined at bedside. Denies any new issues. Slurred speech is improving but not back to baseline yet. States it takes varying amount of time for it to resolve completely. No fever, chills, N/V, CP/SOB. Review of Systems Review of Systems: All systems reviewed & are unremarkable except as noted in Subjective Physical Exam Physical Exam: General: Lying comfortably in bed, not in distress, on room air HEENT: EOMI, OVI, MMM Chest: Clear breath sounds bilaterally, no wheezes or crackles CVS: Regular rate and rhythm, normal heart sounds, no murmur Abdomen: Soft, non tender, not distended, normal bowel sounds Neuro: Awake, alert, oriented. Dysarthria present. No pronator drift. Strength 5/5 on all extremities. Sensation grossly intact. Finger-nose test normal. Gait not evaluated. Extremities: No cyanosis, clubbing or edema Results & Data Results & Data Vital Signs (Past 12 Hours) Vital Signs Temp Pulse Pulse Resp BP Pulse Ox O2 Del Method 03/05/23 07:00 80 03/05/23 03:45 37 C 70 16 108/67 94 Nasal Cannula O2 Flow Rate 03/05/23 07:00 03/05/23 03:45 2 Laboratory Results Short CBC 03/05/23 Range/Units 05:58 WBC 7.96 (4.8-10.8) K/ul Hgb 15.0 (14.0-18.0) g/dl Hct 44.3 (42.0-52.0) % Plt Count 240 (130-400) K/uL BMP 03/05/23 05:58 Sodium 138 Potassium 4.1 Chloride 102 Carbon Dioxide 31 BUN 16 Creatinine 0.88 Glucose 95 Calcium 9.0 Medications Administered Current Inpatient Medications Acetaminophen (Acetaminophen 325 Mg Tab) 650 mg PO Q4H PRN PRN Reason: Pain or Fever Stop: 04/03/23 00:42 Hydrocodone Bitart/Acetaminophen (Hydrocodone/Acetamophen 5/325mg Tab) 1 tab PO QID PRN PRN Reason: Pain Stop: 03/18/23 04:03 Aspirin (Aspirin 81 Mg Ectab) 81 mg PO DAILY [facility] Stop: 04/03/23 08:59 Last Admin: 03/05/23 08:05 Dose: 81 mg Atorvastatin Calcium (Atorvastatin 40 Mg Tab) 80 mg PO QAM [facility] Stop: 04/03/23 08:59 Last Admin: 03/05/23 08:06 Dose: 80 mg Carvedilol (Carvedilol 3.125 Mg Tab) 3.125 mg PO BID [facility] Stop: 04/03/23 08:59 Last Admin: 03/05/23 08:06 Dose: 3.125 mg Clopidogrel Bisulfate (Clopidogrel Bisulfate 75 Mg Tab) [facility] Stop: 04/03/23 08:59 Last Admin: 03/05/23 08:06 Dose: 75 mg Enoxaparin Sodium (Enoxaparin Inj 40 Mg/0.4 Ml Syr) 40 [facility] S[facility] Stop: 04/03/23 08:59 Last Admin: 03/05/23 08:06 Dose: 40 mg Fenofibrate (Fenofibrate Nanocrystallized 145 Mg Tablet) 145 mg PO [facility] Stop: 04/04/23 08:59 Last Admin: 03/05/23 08:05 Dose: 145 mg Promethazine HCl 12.5 mg/ (Sodium Chloride) 50.5 mls @ 202 mls/hr IV Q6H PRN PRN Reason: Nausea And Vomiting Stop: 04/02/23 23:31 Lisinopril (Lisinopril 10 Mg Tab) 10 mg PO DAILY [facility] Stop: 04/03/23 12:59 Last Admin: 03/05/23 08:05 Dose: 10 mg
--- NOTE | 2023-03-05 12:28 | Discharge Summary ---
Date of Service March 05, 2023 Admission HPI Per Admitting Provider History obtained from patient and records. Medical history significant for CAD, CVA, basilar artery aneurysm as per records, COPD, SHANNON on CPAP, history of PE status post Eliquis, history second- degree AV block (Mobitz type I), hypertension, hyperlipidemia, prediabetes, ongoing tobacco abuse. Last confinement August 2022 for recurrent falls secondary to ambulatory dysfunction. Patient discharged to short-term rehab before going home. Last night, patient noted left leg weakness and slurred speech. Denies headache, chest pain, unusual shortness of breath. Patient not sure if he is taking his meds. Improving symptoms upon arrival at the ER. Admission Exam Per Admitting Provider GENERAL: Comfortable, pleasant, morbidly obese, looks older than stated age, mumbling speech, no respiratory distress SKIN: Normal color, warm HEENT: [place] palpebral conjunctivae, no ptosis, dry buccal mucosa NECK : Supple, short neck, no tenderness CHEST : Decreased breath sounds, no tenderness HEART : RRR, no obvious murmurs ABDOMEN: Some distention, nontender EXTREMITIES : No LE swelling, no LE tenderness, no other conspicuous deformities noted NEUROLOGIC : Coherent, no facial asymmetry, MMTS BUE/BLE 4/5, gait and stance not assessed Principal Diagnosis Dysarthria, H/o stroke Discharge Exam General: Lying comfortably in bed, not in distress, on room air HEENT: EOMI, OVI, MMM Chest: Clear breath sounds bilaterally, no wheezes or crackles CVS: Regular rate and rhythm, normal heart sounds, no murmur Abdomen: Soft, non tender, not distended, normal bowel sounds Neuro: Awake, alert, oriented. Dysarthria present. No pronator drift. Strength 5/5 on all extremities. Sensation grossly intact. Finger-nose test normal. Gait not evaluated. Extremities: No cyanosis, clubbing or edema Discharge Data Allergies Allergy/AdvReac Type Severity Reaction Status Date / Time Penicillins Allergy Mild UNKNOWN Verified 03/03/23 21:42 oxycodone AdvReac Mild GI DISTRESS Verified 03/03/23 21:42 Consultations 03/03/23 21:42 ED Decision to Admit Stat Ordered Studies 03/03/23 19:44 CT angio head w con Stat CT angio neck with con Stat CT head/brain wo con Stat 03/04/23 11:32 MRI Brain [MR brain wo con] Urgent Laboratory Results WBC 7.96 K/ul (4.8-10.8) 03/05/23 05:58 RBC 4.73 M/uL (4.70-6.10) 03/05/23 05:58 Hgb 15.0 g/dl (14.0-18.0) 03/05/23 05:58 Hct 44.3 % (42.0-52.0) 03/05/23 05:58 MCV 93.7 fL (80.0-100.0) 03/05/23 05:58 MCH 31.7 pg (25.0-34.0) 03/05/23 05:58 MCHC 33.9 g/dL (32.0-36.0) 03/05/23 05:58 RDW Std Deviation 44.7 fL (36.4-46.3) 03/05/23 05:58 RDW Coeff of Krupa 12.9 % (11.5-14.5) 03/05/23 05:58 Plt Count 240 K/uL (130-400) 03/05/23 05:58 MPV 10.2 fL (9.4-12.4) 03/05/23 05:58 Immature Gran % (Auto) 0.5 % 03/05/23 05:58 Neut % (Auto) 51.9 % 03/05/23 05:58 Lymph % (Auto) 37.8 % 03/05/23 05:58 [place] % (Auto) 7.3 % 03/05/23 05:58 Eos % (Auto) 2.0 % 03/05/23 05:58 Baso % (Auto) 0.5 % 03/05/23 05:58 Neut # (Auto) 4.13 K/uL (1.40-6.50) 03/05/23 05:58 Lymph # (Auto) 3.01 K/uL (1.2-3.4) 03/05/23 05:58 [place] # (Auto) 0.58 K/uL (0.11-0.59) 03/05/23 05:58 Eos # (Auto) 0.16 K/uL (0-0.50) 03/05/23 05:58 Baso # (Auto) 0.04 K/uL (0-0.2) 03/05/23 05:58 Immature Gran # (Auto) 0.04 K/uL (0.01-0.20) 03/05/23 05:58 PT 10.7 Seconds (9.0-12.0) 03/03/23 19:54 INR 1.0 (0.9-1.1) 03/03/23 19:54 APTT 31.4 Seconds (21.0-31.0) H 03/03/23 19:54 PTT Ratio 1.1 03/03/23 19:54 Sodium 138 mmol/L (136-145) 03/05/23 05:58 Potassium 4.1 mmol/L (3.5-5.1) 03/05/23 05:58 Chloride 102 mmol/L (98-107) 03/05/23 05:58 Carbon Dioxide 31 mmol/L (21-32) 03/05/23 05:58 Anion Gap 5 (3-11) 03/05/23 05:58 BUN 16 mg/dl (6-23) 03/05/23 05:58 Creatinine 0.88 mg/dl (0.6-1.4) 03/05/23 05:58 Est Cr Clr Drug Dosing 131.7 ml/min 03/05/23 05:58 Est GFR ( Amer) 121.1 ml/min 03/05/23 05:58 Est GFR (Non-Af Amer) 104.5 ml/min 03/05/23 05:58 BUN/Creatinine Ratio 18.2 (10-20) 03/05/23 05:58 Glucose 95 mg/dl (70-99(Fasting)) 03/05/23 05:58 Estimat Average Glucose 131 mg/dl 03/04/23 06:13 Hemoglobin A1c 6.2 % (4.5-5.6) H 03/04/23 06:13 Calcium 9.0 mg/dl (8.6-10.3) 03/05/23 05:58 Phosphorus 4.4 mg/dl (2.5-4.9) 03/05/23 05:58 Magnesium 2.1 mg/dl (1.7-2.4) 03/05/23 05:58 Total Bilirubin 0.4 mg/dl (0.2-1.0) 03/03/23 19:54 AST 11 U/L (13-39) L 03/03/23 19:54 ALT 20 U/L (7-52) 03/03/23 19:54 Alkaline Phosphatase 66 U/L (34-104) 03/03/23 19:54 Troponin I High Sens 3.8 pg/ml (0-20) 03/03/23 19:54 Total Protein 7.8 gm/dl (6.0-8.3) 03/03/23 19:54 Albumin 4.1 gm/dl (3.4-5.0) 03/03/23 19:54 Globulin 3.7 gm/dl (2.5-4.0) 03/03/23 19:54 Albumin/Globulin Ratio 1.1 (0.9-2) 03/03/23 19:54 Triglycerides 334 mg/dl (0-150) H 03/04/23 06:13 Cholesterol 161 mg/dl (0-200) 03/04/23 06:13 LDL Cholesterol, Calc 67 mg/dl 03/04/23 06:13 VLDL Cholesterol, Calc 67 mg/dl (0-30) H 03/04/23 06:13 HDL Cholesterol 27 mg/dl 03/04/23 06:13 Cholesterol/HDL Ratio 6.0 (0-5) H 03/04/23 06:13 SARS-CoV-2, RNA, NAAT NEGATIVE (NEGATIVE) 03/03/23 20:[address] 03/03/23 19:44 CR Exam(s): CT HEAD Without Contrast EXAM: CT Head Without Intravenous Contrast CLINICAL HISTORY: Reason for exam: neuro deficit, acute stroke suspected. TECHNIQUE: Axial computed tomography images of the head/brain without intravenous contrast. CTDI is 37.95 mGy and DLP is 1774.26 mGy-cm. Automated exposure control was utilized for the study. A dose lowering technique was utilized adhering to the principles of ALARA. COMPARISON: September 07, 2022 FINDINGS: Brain: Mild cerebral atrophy and periventricular white matter low density consistent with chronic small vessel disease and/or senescent changes, unchanged. No acute large vessel infarct or intracranial hemorrhage is seen. Ventricles: Unremarkable. No ventriculomegaly. Bones/joints: Unremarkable. No acute fracture. Soft tissues: Unremarkable. Vasculature: Aneurysmal dilation of the basilar artery measuring at least 2 cm in diameter, unchanged since previous. Please see CT angiogram for additional details. Sinuses: Unremarkable as visualized. No acute sinusitis. Mastoid air cells: Unremarkable as visualized. No mastoid effusion. IMPRESSION: 1. Aneurysmal dilation of the basilar artery measuring at least 2 cm in diameter, unchanged since previous. Please see CT angiogram for additional details. 2. Mild cerebral atrophy and periventricular white matter low density consistent with chronic small vessel disease and/or senescent changes, unchanged. No acute large vessel infarct or intracranial hemorrhage is seen. Communications: Call Doctor Stroke Electronically signed by: Antwan Nash MD 03/03/23 21:35 PM Head CTA 03/03/23 19:44 CR Exam(s): CTA HEAD With Contrast IV Amt: 108ml EXAM: CT Angiography Head With Intravenous Contrast CLINICAL HISTORY: Reason for exam: neuro deficit, acute stroke suspected. TECHNIQUE: Axial computed tomographic angiography images of the head with intravenous contrast. CTDI is 37.95 mGy and DLP is 1774.26 mGy-cm. Automated exposure control was utilized for the study. A dose lowering technique was utilized adhering to the principles of ALARA. MIP reconstructed images were created and reviewed. CONTRAST: Patient received 108ml of IV contrast COMPARISON: August 25, 2022 FINDINGS: Right internal carotid artery: No acute findings. Intracranial segment is patent with no significant stenosis. No aneurysm. Right anterior cerebral artery: Normal anatomic variant of absent right A1 segment. The anterior cerebral arteries fill from the left side and appear unremarkable. Right middle cerebral artery: Unremarkable. No occlusion or significant stenosis. No aneurysm. Right posterior cerebral artery: Unremarkable. No occlusion or significant stenosis. No aneurysm. Right vertebral artery: Unremarkable as visualized. Left internal carotid artery: No acute findings. Intracranial segment is patent with no significant stenosis. No aneurysm. Left anterior cerebral artery: Unremarkable. No occlusion or significant stenosis. No aneurysm. Left middle cerebral artery: Unremarkable. No occlusion or significant stenosis. No aneurysm. Left posterior cerebral artery: Unremarkable. No occlusion or significant stenosis. No aneurysm. Left vertebral artery: Unremarkable as visualized. Basilar artery: Diffuse fusiform aneurysmal dilation of the basilar artery measuring up to 2 cm in diameter, not significantly changed since previous. There is peripheral mural thrombus but the vessel remains patent. IMPRESSION: Diffuse fusiform aneurysmal dilation of the basilar artery measuring up to 2 cm in diameter, not significantly changed since previous. There is peripheral mural thrombus but the vessel remains patent. The remaining arterial structures appear within normal limits. No large vessel occlusion is identified. Communications: Call Doctor Stroke Electronically signed by: Antwan Nash MD 03/03/23 21:41 PM Neck CTA 03/03/23 19:44 CR Exam(s): CTA NECK With Contrast IV Amt: 108ml EXAM: CT Angiography Neck With Intravenous Contrast CLINICAL HISTORY: Reason for exam: neuro deficit, acute stroke suspected. TECHNIQUE: Routine carotid CT angiography protocol was performed with intravenous contrast. NASCET criteria using the distal ICAs for comparison were used for evaluation of stenoses. CTDI is 37.95 mGy and DLP is 1774.26 mGy-cm. Automated exposure control was utilized for the study. A dose lowering technique was utilized adhering to the principles of ALARA. MIP reconstructed images were created and reviewed. CONTRAST: Patient received 108ml of IV contrast COMPARISON: August 25, 2022 FINDINGS: VASCULATURE: Right common carotid artery: Unremarkable. No occlusion or significant stenosis. No dissection. Right internal carotid artery: Unremarkable. Extracranial segment is patent with no occlusion or significant stenosis. No dissection. Right external carotid artery: Unremarkable. No occlusion. Right vertebral artery: Unremarkable. No occlusion or significant stenosis. No dissection. Left common carotid artery: Small calcified plaque in the left carotid bifurcation at the origin of the internal carotid artery with no measurable stenosis. Mild motion artifact through the carotid bifurcations. No dissection. Left internal carotid artery: See below. Left external carotid artery: Unremarkable. No occlusion. Left vertebral artery: Small amount of calcified plaque in the mid left vertebral artery without measurable stenosis. No dissection. Aorta: The ascending aortic arch is upper normal in diameter measuring 3.6 cm. There is no aneurysm or dissection. NECK: Bones/joints: Mild degenerative changes throughout the mid cervical spine. No acute fracture or subluxation is seen. Soft tissues: Unremarkable. Lung apices: Clear. CAROTID STENOSIS REFERENCE USING NASCET CRITERIA: % ICA stenosis = (1 - narrowest ICA diameter/diameter of distal cervical ICA) x 100. Mild - <50% stenosis. Moderate - 50-69% stenosis. Severe - 70-94% stenosis. Near occlusion - 95-99% stenosis. Occluded - 100% stenosis. IMPRESSION: No acute findings in the arteries of the neck. Communications: Call Doctor Stroke Electronically signed by: Antwan Nash MD 03/03/23 21:38 PM Brain MRI 03/04/23 11:32 MR brain wo con HISTORY: 42 years-old Male r/o stroke acute strokelike symptoms COMPARISON: CT head 03/03/2023, brain MRI 08/25/2022 TECHNIQUE: Multiplanar multisequence MRI of the brain was obtained without the use of IV contrast. FINDINGS: Mildly motion degraded exam. No restricted diffusion. Dolichoectasia with an eurysmal dilation of the basilar artery redemonstrated with associated chronic intramural thrombus/atheromatous plaque. Again noted is associated mass effect upon the cerebral peduncles and dotty. No acute intracranial hemorrhage, midline shift, abnormal extra-axial collection, hydrocephalus or mass. Chronic right cerebellar infarct with gliosis and encephalomalacia. Volume and signal of the brain parenchyma is otherwise within normal limits. Cerebral venous sinuses appear patent. Skull, orbits and soft tissues are unremarkable. Mastoid air cells and paranasal sinuses are clear. IMPRESSION: 1. No acute intracranial abnormality. No acute or subacute infarct. 2. Dolichoectasia with aneurysmal dilation of the basilar artery redemonstrated with associated chronic intramural thrombus/atheromatous plaque and associated mass effect upon the cerebral peduncles and dotty. 3. Chronic right cerebellar infarct. ACT 112: Negative or not required by law. The above report was generated using voice recognition software. It may contain grammatical, syntax or spelling errors. Electronically signed by: Arthur Braden M.D. 03/04/2023 11:53 AM Hospital Course (1) Dysarthria: (2) History of cerebellar stroke: (3) Dyslipidemia: (4) HTN (hypertension): (5) Tobacco use: Plan 42 year old female with h/o cerebellar stroke Aug 2022,CAD, CVA, basilar artery aneurysm as per records, COPD, SHANNON on CPAP, history of PE status post Eliquis, history second-degree AV block (Mobitz type I), hypertension, hyperlipidemia, prediabetes, ongoing tobacco abuse who presented to the ED 03/03 with slurred speech and left leg weakness MRI brain 1. No acute intracranial abnormality. No acute or subacute infarct. 2. Dolichoectasia with aneurysmal dilation of the basilar artery redemonstrated with associated chronic intramural thrombus/atheromatous plaque and associated mass effect upon the cerebral peduncles and dotty. 3. Chronic right cerebellar infarct. CTA head/neck- No acute findings in the arteries of the neck. - Diffuse fusiform aneurysmal dilation of the basilar artery measuring up to 2 cm in diameter, not significantly changed since previous. There is peripheral mural thrombus but the vessel remains patent. - The remaining arterial structures appear within normal limits. No large vessel occlusion is identified. Echo- no new findings. PDA similar to before Tele- NSR Dysarthria- improving, but not completely resolved yet, unclear etiology. Similar episode in the past with variable length of recovery per patient. Stroke work up negative with negative CT head, CTA head and neck, MRI brain. Tele unremarkable. Already on DAPT, statin. PT OT recommended rehab. HTN- continue coreg, lisinopril- adjust as indicated H/o cerebellar stroke- on DAPT, statin Prediabetes- HA1c 6.2. SSI prn. Consider metformin. OP follow up with PCP. Hypertriglyceridemia- Persistently high even in prior labs. Started on fenofibrate. OP follow up with PCP Stable to go to [facility] today. Total Time Total Time Spent Total Time Spent (In Minutes): 35 Discharge Plan Discharge Items Patient Disposition: Transfer Inpatient Rehab Fac Reason For Visit: TIA Discharge Diagnosis: Dysarthria Activity: Resume your previous activity Non-emergency contact: Primary Care Provider Call non-emergency contact if: you have any medication questions and your symptoms worsen Follow-up/Referrals: Esteban Tucker PA-C [Primary Care Provider] - Diet: Heart Healthy Addtl Attending Provider Instructions: We have added tricor for your elevated triglycerides. Follow up with repeat lipid test in about 3 months with your family doctor Your A1c is 6.2, meaning prediabetes. You will benefit from metformin. Follow up with family doctor to discuss further. Recommend to continue compliance with your medications. Pending Studies at Discharge: No Stand-Alone Forms: My [facility] ERN Skilled Items Patient informed of condition?: Yes DNR: Yes Discharge Level of Care: Acute rehab Communicable Disease: No Discharge Prognosis: Stable Lines: None Urinary Catheter: No Medications and DC Order Prescriptions: New fenofibrate nanocrystallized 145 mg Tablet 145 mg PO QAM Qty: 30 0RF Continued furosemide 20 mg tablet 20 mg PO 3XWK PRN (Reason: Edema) Rx Instructions: TAKE THIS MED THREE DAYS WEEKLY, IF NEEDED, FOR SWELLING/EDEMA clopidogrel 75 mg Tablet 75 mg PO QAM Qty: 30 0RF atorvastatin 40 mg Tablet 80 mg PO QAM Qty: 30 0RF aspirin 81 mg Tablet,Delayed Release (Dr/Ec) 81 mg PO DAILY Qty: 30 0RF carvedilol 6.25 mg tablet 6.25 mg PO BID lisinopril 10 mg tablet 10 mg PO DAILY Discharge Orders: Discharge Order (Routine); Ordered 03/05/23 Ordered By: Florencio Polo/Other Patient Handouts: Prediabetes, 5 Steps for Eating Healthier Admission Data Admit Date/Time: 03/03/23 23:30 Attending Provider: Florencio Negron Admit Provider: Andres Lewis Primary Care Provider: Esteban Tucker Other Providers: Andres Lewis ; [facility]
--- NOTE | 2023-03-05 21:52 | Electrocardiogram Report ---
Test Reason : Blood Pressure : / mmHG Vent. Rate : 090 BPM Atrial Rate : 090 BPM P-R Int : 148 ms QRS Dur : 102 ms QT Int : 366 ms P-R-T Axes : 008 009 025 degrees QTc Int : 447 ms Normal sinus rhythm Poor R wave progression, consider anterior [place] vs. lead placement vs. LVH When compared with ECG of 07-SEP-2022 11:23, No significant change was found Confirmed by Jimenez Pike ([id number]) on 03/05/2023 9:52:17 PM Referred By: REFERRED SELF Confirmed By:Jimenez Pike
== END 2023-03-05 17:33 ==
LOC: ED 19:35 → 2N 19:35 → SUATTDRO 23:30 → 2N 03-04 00:17